=== PATIENT | female | born 1935 | race Caucasian/White ===

== ENCOUNTER 2020-09-23 13:18 | Outpatient (REF) | payer MEDICARE, SELFPAY ==
--- NOTE | 2020-09-23 | US_ITS ---
EXAMINATION: COLOR-FLOW DUPLEX IMAGING OF THE BILATERAL LOWER EXTREMITY ARTERIAL SYSTEM. VELOCITY MEASUREMENTS THROUGHOUT THE FEMORAL ARTERIES WITH ANKLE-BRACHIAL PERIPHERAL ARTERIAL TESTING. Interventional Radiologist: Clement Jimenez M.D., F.S.I.R., F.A.C.R. CLINICAL INFORMATION: This is an 85-year-old female with bilateral peripheral arterial disease. Claudication. RIGHT FEMORAL RUNOFF VELOCITIES: The right common femoral artery measures 211 cm/s and with moderate stenosis and monophasic waveforms.. The right profunda femoral artery is 112 cm/s and is monophasic. Right proximal superficial femoral artery measures 119 cm/s and monophasic. Mid superficial femoral artery is 54 cm/s and monophasic. Distal right superficial femoral artery measures 51 cm/s and is monophasic. Right popliteal velocity measures 14 cm/s and is monophasic. The right posterior tibial artery is not detected. The right ankle-brachial index is 0.48. LEFT FEMORAL RUNOFF VELOCITIES: The left common femoral artery measures 135 cm/s and monophasic. The left profunda femoral artery is 96 cm/s and is biphasic. Left proximal superficial femoral artery measures 130 cm/s and monophasic. Mid superficial femoral artery is 61 cm/s and monophasic. Distal left superficial femoral artery measures 46 cm/s and is monophasic. Left popliteal velocity measures 56 cm/s and is biphasic. The left posterior tibial artery is not detected. The left ankle-brachial index is 0.64. Atherosclerotic plaque is seen throughout the arteries bilaterally. US/US arterial duplex LE BI IMPRESSION: 1. Abnormal bilateral peripheral arterial testing with abnormal ankle-brachial index and velocity measurements with moderate hemodynamically significant stenosis. 2. There is likely a hemodynamically significant stenosis within the left common femoral artery. 3. The posterior tibial arteries are likely occluded bilaterally. 4. The patient likely has both inflow and outflow disease.
== END 2020-09-23 13:19 | disposition home or self-care (01) ==
LOC: HO.US 13:18
PROVIDERS: Visit Provider Surgery Vascular Surgery
DX: I70.203 Unspecified atherosclerosis of native arteries of extremities, bilateral legs (principal)
CPT/HCPCS: 93923; 93925

== ENCOUNTER → 2020-09-30 12:49 | Outpatient (BNVA) | payer MEDICARE, SELFPAY | PROVIDERS: PCP Internal Medicine; Referring Provider Internal Medicine; Visit Provider Surgery Vascular Surgery | DX: I73.9 Peripheral vascular disease, unspecified (principal) | CPT/HCPCS: 99212 ==

== ENCOUNTER → 2020-10-21 13:59 | Outpatient (BNVA) | payer MEDICARE, SELFPAY | PROVIDERS: PCP Internal Medicine; Referring Provider Internal Medicine; Visit Provider Internal Medicine Cardiovascular Disease | DX: Z13.89 Encounter for screening for other disorder (principal) | CPT/HCPCS: Q3014 ==

== ENCOUNTER 2020-11-11 08:00 | Outpatient (REF) | payer MEDICARE, SELFPAY ==
[2020-11-11 08:43] LABS: Hematocrit 33.4 % (37-47); Hemoglobin 10.4 g/dl (12.0-16.0); Mean Corpuscular HGB Conc 31.1 g/dl (31.0-35.0); Mean Corpuscular Hemoglobin 28.5 pg (27.0-33.0); Mean Corpuscular Volume 91.5 fL (80-98); Mean Platelet Volume 10.6 fL (9.4-12.3); Platelet Count 196 X10*3/uL (160-400); Red Blood Count 3.65 X10*6/uL (4.20-5.50); Red Cell Distribution Width 16.7 % (11.0-16.0); White Blood Count 3.9 X10*3/uL (4.8-10.8)
[2020-11-11 09:11] LABS: Anion Gap 13 (12-20); Blood Urea Nitrogen 26 mg/dL (9-16); Calcium 9.4 mg/dL (8.4-10.2); Carbon Dioxide 29 mmol/L (22-29); Chloride 105 mmol/L (96-108); Estimated Glomerular Filt Rate > 60; Glucose Random 98 mg/dL (60-115); Potassium 4.5 mmol/l (3.3-5.1); Sodium 142 mmol/L (135-145)
== END 2020-11-11 08:01 | disposition home or self-care (01) ==
LOC: HO.LAB 08:00
PROVIDERS: PCP Internal Medicine; Visit Provider Internal Medicine Cardiovascular Disease
DX: I25.10 Atherosclerotic heart disease of native coronary artery without angina pectoris (principal); I11.0 Hypertensive heart disease with heart failure; I50.32 Chronic diastolic (congestive) heart failure
CPT/HCPCS: 36415; 80048; 85027

== ENCOUNTER → 2021-01-22 11:10 | Outpatient (REF) | payer MEDICARE, SELFPAY ==
--- NOTE | 2021-01-22 11:13 | CA_ITS ---
Transthoracic Echocardiogram Patient (Last, First, Middle): Lucio Gannon M Gender: Female Date of : 1935 Age: 85 Procedure Date: 01/22/2021 Procedure Type: Transthoracic Echocardiogram Location: OP Height: 160.02 cm Weight: 58.97 kg BSA: 1.61 m2 Heart Rate: bpm BP: 120 / 78 mmHg Netbackup Admin: LEYLA Referring MD: Demetrio Fine MD Steelworker: Demetrio Fine MD Symptoms: I25.10 - Atherosclerotic heart disease of samish coronary artery without angina pectoris Study Quality: Good ECG Rhythm: Sinus Conclusions: - 1. Normal LV systolic function with grade 2 diastolic dysfunction 2. Moderately dilated left atrium 3. Lixt-dg-ftcbbkal mitral regurgitation with severe mitral annular calcification 4. At least moderate aortic stenosis 5. Moderately elevated right ventricular systolic pressure 6. No pericardial effusion Findings Left Ventricle Normal left ventricular size, thickness, and systolic function. The visually estimated ejection fraction is between 65-70%. Spectral Doppler is indicative of a pseudonormal filling pattern. E/E prime ratio is >15, consistent with elevated filling pressures. Evidence suggests grade II (moderate) diastolic dysfunction. Right Ventricle Normal right ventricular cavity size and systolic function. Atria The left atrium is moderately dilated. There is no evidence of interatrial shunt. The right atrium is mildly dilated. Aortic Valve There is moderate calcification of the aortic valve. There is moderate thickening of the aortic valve. There is moderate aortic valve stenosis. The mean gradient is 13 mmHg. The aortic valve area is 1.12 cm2. There is no aortic valve regurgitation. Mitral Valve There is severe anterior and posterior mitral leaflet thickening. There is severe mitral annular calcification. There is mild to moderate mitral valve regurgitation. There is no mitral valve stenosis. Pulmonic Valve The pulmonic valve is likely normal. There is trace to mild pulmonic valve regurgitation. Tricuspid Valve Likely normal tricuspid valve structure and function. There is mild to moderate tricuspid valve regurgitation. Mildly elevated right atrial pressure. Moderate pulmonary hypertension is present. Great Vessels All visible segments of the aorta are normal in size. The pulmonary artery was not well visualized. Venous The inferior vena cava is mildly dilated and collapses less than 50% with inspiration. Pericardium/Pleural There is no evidence of pericardial effusion. Prior Study Comparison No significant change compared to prior study dated: 05/12/2020. Measurements M-Mode Liner Measurements Normals - Women/Men AOV Cusps: 0.80 1.5-2.6 cm/m2 2D Linear Measurements IVSd: 1.09 0.6-0.9/0.6-1.0 cm LVIDd: 4.39 3.9-5.3/4.2-5.9 cm LVIDd Index: 2.73 2.4-3.2/2.2-3.1 cm/m2 LVIDs: 3.09 2.0-3.6 cm LVPWd: 1.00 0.7-1.1 cm Ao Root: 3.30 2.1-3.5 cm LA Diam: 4.50 2.7-3.8/3.0-4.0 cm LAIDs Index: 2.80 1.5-2.3 cm/m2 LV Mass: 194.99 67-162/88-224 g LV Mass Index: 121.11 43-95/49-115 g/m2 LVOT Diam: 1.90 3.0+(-)1.3 cm 2D Systolic Function EF 4C: 70.30 >55% EF 2C: 67.80 >55% EF BiP: 70.60 >55% Mitral Valve MV Pk E: 1.10 MV PK A: 1.06 MV Decel Time: 194.00 E/A: 1.00 E'Lateral: 7.29 E'Medial: 5.44 E/E' Med: 20.20 E/E' Lat: 15.10 PHT: 57.00 MVA PHT: 3.86 Decel Coal: 5.69 Aortic Valve AoV Pk Bentley: 2.51 AoV Mn Bentley: 1.65 AoV VTI: 0.53 AoV Pk Grad: 25.00 Aov Mn Grad: 13.00 HALINA Cont.VTI: 1.12 LVOT LVOT Pk Bentley: 0.89 LVOT Mn Bentley: 0.58 LVOT VTI: 0.21 LVOT Pk Grad: 3.00 LVOT Mn Grad: 2.00 LVOT Diam: 1.90 LVOT Area: 2.84 Diastolic Function MV Pk E: 1.10 MV Pk A: 1.06 E/A: 1.00 E'Medial: 5.44 E/E' Med: 20.20 E' Laterial: 7.29 E/E' Lat: 15.10 Tricuspid Valve TR Pk Bentley: 3.27 TR Pk Grad: 43.00 RA Press: 8.00 RVSP: 51.00 Great Vessels Aorta Ao Root-2D: 3.30 2.0-3.7 cm Pulmonary Valve PV Pk Bentley: 1.02 Peak PV Grad: 4.00 Updated in Other Vendor System with Status of Final Demetrio Fine MD electronically signed on 01/23/2021 3:16:31 PM with status of Final
== END ==
LOC: HO.CARD 11:10
PROVIDERS: Visit Provider Internal Medicine Cardiovascular Disease
DX: I25.10 Atherosclerotic heart disease of native coronary artery without angina pectoris (principal); I11.0 Hypertensive heart disease with heart failure; I50.30 Unspecified diastolic (congestive) heart failure; I35.0 Nonrheumatic aortic (valve) stenosis
CPT/HCPCS: 93306

== ENCOUNTER → 2021-01-26 13:35 | Outpatient (BNVA) | payer MEDICARE, SELFPAY | PROVIDERS: PCP Internal Medicine; Visit Provider Internal Medicine Cardiovascular Disease | DX: R06.02 Shortness of breath (principal); I50.30 Unspecified diastolic (congestive) heart failure; I25.10 Atherosclerotic heart disease of native coronary artery without angina pectoris; I35.0 Nonrheumatic aortic (valve) stenosis; Z79.899 Other long term (current) drug therapy | CPT/HCPCS: 99212 ==

== ENCOUNTER 2021-01-28 10:04 | Outpatient (REF) | payer MEDICARE, SELFPAY ==
[2021-01-28 11:17] LABS: B Type Natriuretic Peptide 328 pg/mL (<100)
[2021-01-28 11:27] LABS: Anion Gap 15 (12-20); Blood Urea Nitrogen 21 mg/dL (9-16); Calcium 9.3 mg/dL (8.4-10.2); Carbon Dioxide 27 mmol/L (22-29); Chloride 104 mmol/L (96-108); Estimated Glomerular Filt Rate > 60; Glucose Random 93 mg/dL (60-115); Potassium 4.3 mmol/L (3.3-5.1); Sodium 142 mmol/L (135-145)
== END 2021-01-28 10:05 | disposition home or self-care (01) ==
LOC: HO.LAB 10:04
PROVIDERS: PCP Internal Medicine; Visit Provider Internal Medicine Cardiovascular Disease
DX: R06.02 Shortness of breath (principal)
CPT/HCPCS: 36415; 80048; 83880

== ENCOUNTER → 2021-04-29 09:35 | Outpatient (BNVA) | payer MEDICARE, SELFPAY | PROVIDERS: PCP Internal Medicine; Referring Provider Internal Medicine; Visit Provider Internal Medicine Cardiovascular Disease | DX: R06.02 Shortness of breath (principal); I50.30 Unspecified diastolic (congestive) heart failure; I25.10 Atherosclerotic heart disease of native coronary artery without angina pectoris; I35.0 Nonrheumatic aortic (valve) stenosis; R42 Dizziness and giddiness | CPT/HCPCS: 99212 ==

== ENCOUNTER → 2021-07-23 09:37 | Outpatient (BNVA) | payer MEDICARE, SELFPAY | PROVIDERS: PCP Internal Medicine; Referring Provider Internal Medicine; Visit Provider Internal Medicine Cardiovascular Disease | DX: I50.30 Unspecified diastolic (congestive) heart failure (principal); I35.0 Nonrheumatic aortic (valve) stenosis; I25.10 Atherosclerotic heart disease of native coronary artery without angina pectoris | CPT/HCPCS: 93005; 99212 ==

== ENCOUNTER 2021-12-18 09:32 | Outpatient (REF) | payer MEDICARE, SELFPAY ==
[2021-12-18 10:00] LABS: MANUAL DIFF FLAG NO
[2021-12-18 10:27] LABS: Basophils Percent Auto 0.9 % (0-2); Eosinophils Absolute Auto 0.1 X10*3/uL (0.0-0.4); Eosinophils Percent Auto 1.7 % (0-4); Hematocrit 34.3 % (37.0-47.0); Hemoglobin 10.7 g/dl (12.0-16.0); Lymphocytes Absolute Auto 0.9 X10*3/uL (1.2-4.9); Lymphocytes Percent Auto 24.4 % (20-40); Mean Corpuscular HGB Conc 31.2 g/dl (31.0-35.0); Mean Corpuscular Hemoglobin 29.2 pg (27.0-33.0); Mean Corpuscular Volume 93.5 fL (80.0-98.0); Mean Platelet Volume 10.5 fL (9.4-12.3); Monocytes Absolute Auto 0.5 X10*3/uL (0.1-1.2); Monocytes Percent Auto 13.4 % (2-11); Neutrophils Absolute Auto 2.1 x10*3/uL (2.0-8.3); Neutrophils Percent Auto 59.6 % (45-73); Platelet Count 200 X10*3/uL (160-400); Red Blood Count 3.67 X10*6/uL (4.20-5.50); Red Cell Distribution Width 13.8 % (11.0-16.0); White Blood Count 3.5 X10*3/uL (4.8-10.8)
[2021-12-18 11:00] LABS: Alanine Aminotransferase 6 U/L (0-31); Albumin Level 3.9 g/dL (3.5-5.0); Alkaline Phosphatase 53 U/L (39-117); Anion Gap 13 (12-20); Aspartate Amino Transferase 16 U/L (5-31); Bilirubin Total 0.8 mg/dL (0.0-1.0); Blood Urea Nitrogen 26 mg/dL (9-16); Calcium 9.9 mg/dL (8.4-10.2); Carbon Dioxide 26 mmol/L (22-29); Chloride 107 mmol/L (96-108); Cholesterol 132 mg/dL; Estimated Glomerular Filt Rate > 60; Glucose Fasting 94 mg/dL (60-99); HDL Cholesterol 32 mg/dL; LDL Cholesterol Calculated 75 mg/dl; Sodium 141 mmol/L (135-145); Total Protein 6.8 g/dL (6.5-8.0); Triglycerides 125 mg/dL
[2021-12-18 11:21] LABS: Thyroid Stimulating Hormone 0.53 uIU/mL (0.32-4.0)
== END 2021-12-18 09:33 | disposition home or self-care (01) ==
LOC: HO.LAB 09:32
PROVIDERS: Absent Provider Internal Medicine; PCP Internal Medicine; Visit Provider Nurse Practitioner Family
DX: Z00.00 Encounter for general adult medical examination without abnormal findings (principal); E78.5 Hyperlipidemia, unspecified; E11.9 Type 2 diabetes mellitus without complications; Z13.0 Encounter for screening for diseases of the blood and blood-forming organs and certain disorders involving the immune mechanism
CPT/HCPCS: 36415; 80053; 80061; 84443; 85025

== ENCOUNTER 2022-09-15 09:04 | Outpatient (REF) | payer MEDICARE, SELFPAY ==
[2022-09-15 11:28] LABS: B Type Natriuretic Peptide 549 pg/mL (<100)
[2022-09-15 11:32] LABS: Anion Gap 17 (12-20); Blood Urea Nitrogen 37 mg/dL (9-16); Calcium 9.4 mg/dL (8.4-10.2); Carbon Dioxide 25 mmol/L (22-29); Chloride 103 mmol/L (96-108); Cholesterol 133 mg/dL; Estimated Glomerular Filt Rate 52; Glucose Random 95 mg/dL (60-115); HDL Cholesterol 40 mg/dL; LDL Cholesterol Calculated 73 mg/dl; Potassium 4.2 mmol/L (3.3-5.1); Sodium 141 mmol/L (135-145); Triglycerides 101 mg/dL
[2022-09-15 11:43] LABS: Thyroid Stimulating Hormone 1.11 uIU/mL (0.32-4.0)
== END 2022-09-15 09:05 | disposition home or self-care (01) ==
LOC: HO.LAB 09:04
PROVIDERS: PCP Internal Medicine; Referring Provider Internal Medicine; Visit Provider Internal Medicine Cardiovascular Disease
DX: E03.9 Hypothyroidism, unspecified (principal); E78.5 Hyperlipidemia, unspecified; I35.0 Nonrheumatic aortic (valve) stenosis; R06.02 Shortness of breath
CPT/HCPCS: 36415; 80048; 80061; 83880; 84443; 93005; 99212

== ENCOUNTER → 2022-09-17 10:13 | Outpatient (REF) | payer MEDICARE, SELFPAY ==
--- NOTE | 2022-09-17 10:16 | CA_ITS ---
Transthoracic Echocardiogram Patient (Last, First, Middle): Lucio Gannon M Gender: Female Date of : 1935 Age: 86 Procedure Date: 09/17/2022 Procedure Type: Transthoracic Echocardiogram Location: OP Height: 160.02 cm Weight: 60.33 kg BSA: 1.63 m2 Heart Rate: 72 bpm BP: 118 / [address] Sql Developer: SB Referring MD: Demetrio Fine MD Symptoms: I35.0 - Nonrheumatic aortic (valve) stenosis Study Quality: Fair ECG Rhythm: Sinus Conclusions: - Normal left ventricular cavity size. There is mildly increased left ventricular wall thickness. The left ventricular systolic function is hyperdynamic. The visually estimated ejection fraction is >70%. - Normal right ventricular cavity size. There is mild to moderately decreased right ventricular systolic function. - The left atrium is severely dilated. The right atrium is mildly dilated. - There is moderate aortic valve stenosis. The peak aortic velocity is 3.16 m/s. The mean gradient is 21 mmHg. The aortic valve area is 0.92 cm2. There is no aortic valve regurgitation. SVI 40. - There is severe mitral annular calcification. There is trace mitral valve regurgitation. There is no mitral valve stenosis. Findings Left Ventricle Normal left ventricular cavity size. There is mildly increased left ventricular wall thickness. The left ventricular systolic function is hyperdynamic. The visually estimated ejection fraction is >70%. There is no evidence of regional wall motion abnormalities. Diastolic function is indeterminate on the basis of available data. Right Ventricle Normal right ventricular cavity size. There is mild to moderately decreased right ventricular systolic function. Atria The left atrium is severely dilated. The right atrium is mildly dilated. Aortic Valve There is a normal trileaflet aortic valve. There is moderate calcification of the aortic valve. There is moderate thickening of the aortic valve. There is moderate aortic valve stenosis. The peak aortic velocity is 3.16 m/s. The mean gradient is 21 mmHg. The aortic valve area is 0.92 cm2. There is no aortic valve regurgitation. SVI 40. Mitral Valve There is severe mitral annular calcification. There is trace mitral valve regurgitation. There is no mitral valve stenosis. Pulmonic Valve Normal pulmonic valve structure and function. There is trace pulmonic valve regurgitation. Tricuspid Valve Normal tricuspid valve structure and function. There is mild tricuspid valve regurgitation. Normal right atrial pressure. There is no evidence of pulmonary hypertension. Great Vessels The visualized portions of the pulmonary artery and branches are normal. Venous The inferior vena cava is normal in size and collapses greater than 50% with inspiration. Pericardium/Pleural There is no evidence of pericardial effusion. Prior Study Comparison Changes noted compared to prior study dated: 01/22/2021. RV function mild to moderately reduced. Severe LA dilation. Measurements 2D Linear Measurements IVSd: 0.90 0.6-0.9/0.6-1.0 cm LVIDd: 4.72 3.9-5.3/4.2-5.9 cm LVIDd Index: 2.90 2.4-3.2/2.2-3.1 cm/m2 LVIDs: 2.87 2.0-3.6 cm LVPWd: 0.98 0.7-1.1 cm LA Diam: 4.80 2.7-3.8/3.0-4.0 cm LAIDs Index: 2.94 1.5-2.3 cm/m2 LV Mass: 189.77 67-162/88-224 g LV Mass Index: 116.42 43-95/49-115 g/m2 LVOT Diam: 2.00 3.0+(-)1.3 cm 2D Systolic Function EF Teich: 69.00 >55% Mitral Valve MV VTI: 0.39 MV Pk Bentley: 1.12 MV Mn Bentley: 0.67 MV Pk Grad: 5.00 MV Mn Grad: 2.00 MV Pk E: 0.92 MV PK A: 1.19 MV Decel Time: 217.00 E/A: 0.80 E'Lateral: 4.90 E'Medial: 4.68 E/E' Med: 19.70 E/E' Lat: 18.80 PHT: 64.00 MVA PHT: 3.44 MVA Continuity: 1.86 Decel [place]: 4.25 MR VTI: 1.85 Aortic Valve AoV Pk Bentley: 3.16 AoV Mn Bentley: 2.15 AoV VTI: 0.70 AoV Pk Grad: 40.00 Aov Mn Grad: 21.00 HALINA Cont.VTI: 0.92 LVOT LVOT Pk Bentley: 0.94 LVOT Mn Bentley: 0.63 LVOT VTI: 0.23 LVOT Pk Grad: 4.00 LVOT Mn Grad: 2.00 LVOT Diam: 2.00 LVOT Area: 3.14 Diastolic Function MV Pk E: 0.92 MV Pk A: 1.19 E/A: 0.80 E'Medial: 4.68 E/E' Med: 19.70 E' Laterial: 4.90 E/E' Lat: 18.80 Right Ventricle TAPSE (mm): 17.40 TVS' Bentley: 6.74 Tricuspid Valve TR Pk Bentley: 2.79 TR Pk Grad: 31.00 RA Press: 3.00 RVSP: 34.00 Great Vessels Aorta Sinus of Valsalva: 3.40 2.0-3.5 cm Ao Asc: 3.30 2.1-3.4 cm Pulmonary Valve PV Pk Bentley: 1.00 Peak PV Grad: 4.00 Updated in Other Vendor System with Status of Final Paul Sharif MD electronically signed on 09/19/2022 7:27:32 PM with status of Final
== END ==
LOC: HO.CARD 10:13
PROVIDERS: PCP Internal Medicine; Visit Provider Internal Medicine Cardiovascular Disease
DX: I35.0 Nonrheumatic aortic (valve) stenosis (principal)
CPT/HCPCS: 93306

== ENCOUNTER 2023-04-29 09:15 | Outpatient (REF) | payer MEDICARE, SELFPAY ==
[2023-04-29 11:09] LABS: Cholesterol 125 mg/dL; HDL Cholesterol 36 mg/dL; LDL Cholesterol Calculated 64 mg/dl; Triglycerides 128 mg/dL
[2023-04-29 11:26] LABS: Thyroid Stimulating Hormone 0.43 uIU/mL (0.32-4.0)
== END 2023-04-29 09:16 | disposition home or self-care (01) ==
LOC: HO.LAB 09:15
PROVIDERS: PCP Internal Medicine; Visit Provider Internal Medicine
DX: E03.9 Hypothyroidism, unspecified (principal); E78.5 Hyperlipidemia, unspecified
CPT/HCPCS: 36415; 80061; 84443

== ENCOUNTER 2023-05-27 08:16 | Outpatient (AMB) | payer MEDICARE, SELFPAY ==
--- NOTE | 2023-05-27 08:20 | A.OFFPC_ITS ---
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 Accompanied by: Self / Same As Patient Allergies aspirin [Aspirin] Allergy (Mild, Verified 05/27/23 08:21) ACID REFLUX, gi upset ciprofloxacin [From CIPRO] Allergy (Unknown, Verified 05/27/23 08:21) RASH Sulfa (Sulfonamide Antibiotics) [SULFA (SULFONAMIDE ANTIBIOTICS)] Allergy (Unknown, Verified 05/27/23 08:21) DIZZINESS Medication List - Last Reconciled 05/27/23 by Owen Harris MD albuterol sulfate 90 mcg/actuation 2 puffs PO Q4H PRN aspirin (Ecotrin Low Strength) 81 mg PO DAILY atorvastatin 20 mg PO DAILY calcium carbonate-vitamin D3 600 mg-5 mcg (200 unit) (Calcium 600 + D(3)) caps PO DAILY docusate sodium 50 mg PO DAILY furosemide 40 mg PO DAILY levothyroxine 88 mcg PO DAILY losartan 50 mg PO DAILY metoprolol succinate ER 50 mg PO DAILY pantoprazole 40 mg PO DAILY vitamin E (dl, acetate) 400 units PO DAILY Tobacco use date assessed: 05/27/23 Fall risk assessment: No Falls in past year Last assessed Fall Risk: 05/27/23 Dental Screening Dental Screen Date: 05/27/23 Did you have a dental visit in the last 12 months?: No Did you have a dental problem in the last 6 months where you did not have access to dental care?: No Was dental information given to patient?: Patient has dentist HPI 3mth f/u HPI Details HTN hyperlip and hypothyroidism; doing well on rx PFSH Medical History (HFpEF) heart failure with preserved ejection fraction Aortic stenosis CAD (coronary artery disease) HTN (hypertension) Hyperlipidemia PAD (peripheral artery disease) Wound infection Surgical History H/O arthroscopy of right knee H/O partial resection of colon H/O rectocele repair History of bladder suspension procedure History of cataract surgery History of colonoscopy History of cystocele History of hysterectomy History of total right knee replacement Hx of salpingo-oophorectomy, bilateral S/P CABG x 2 Family History Father CAD (coronary artery disease) Throat cancer Stroke Mother No problems noted. Son No problems noted. Social History Housing: Apartment Alcohol intake: never Patient Tobacco Use Status: Former Tobacco user e-Cigarette/Vaping Use: Never Used Second Hand Smoke Exposure: Yes service: No Current occupational status: retired Cognitive needs: Yes (walker) Hearing needs: No Vision needs: Yes (glasses) Questionnaire PHQ-9 Over the last 2 weeks, how often have you been bothered by any of the following problems? 1. Little interest or pleasure in doing things: not at all 2. Feeling down, depressed, or hopeless: not at all 3. Trouble falling or staying asleep, or sleeping too much: not at all 4. Feeling tired or having little energy: not at all 5. Poor appetite or overeating: not at all 6. Feeling bad about yourself - or that you are a failure or have let yourself or your family down: not at all 7. Trouble concentrating on things, such as reading the newspaper or watching television: not at all 8. Moving or speaking so slowly that other people could have noticed. Or the opposite - being so fidgety or restless that you have been moving around a lot more than usual: not at all 9. Thoughts that you would be better off or of hurting yourself in some way: not at all Total score: 0 Depression Screening Interpretation: Negative 11955 - PHQ-9 Billing: Yes Source: Developed by Drs. Abdulaziz Maldonado, Jacqui Jimenez, Juvenal Bustos and colleagues, with an educational josiane from [employer]. Thrive Questionnaire Date Thrive assessed: 05/27/23 I am a: Patient What is your living situation today?: I have a steady place to live Within the past 12 months, did the food you bought not last and you didn't have the money to get more?: Never true Within the past 12 months, did you worry whether your food would run out before you got money to buy more?: Never true Do you have trouble paying for medicines?: No Do you have trouble getting transportation to medical appointments?: No Do you have trouble paying your heating and electricity bill?: No Do you have trouble taking care of your child, family member or friend?: No Do you have trouble with day-to-day activities such as bathing, preparing meals, shopping, managing finances, etc.?: No Are you currently unemployed and looking for a job?: No Are you interested in more education?: No Please select the resources that you would like help with: None Currently or been in a relationship where the following occur: no concerns reported AUDIT C Alcohol Use Questionnaire (AUDIT-C) 1. How often do you have a drink containing alcohol?: Never Total Score: 0 LORENZO-7 AMB Questionnaire LORENZO-7 Date LORENZO - 7 assessed: 05/27/23 Feeling nervous, anxious, or on edge: 0 = Not at all Not being able to stop or control worryin = Not at all Worrying too much about different things: 0 = Not at all Trouble relaxin = Not at all Being so restless that it is hard to sit still: 0 = Not at all Becoming easily annoyed or irritable: 0 = Not at all Feeling afraid as if something awful might happen: 0 = Not at all Total LORENZO-7 score (0-4 normal; 5-9 mild; 10-14 moderate; 15-21 severe): 0 Source: Developed by Drs. Abdulaziz Maldonado, Jacqui Jimenez, Juvenal Bustos and colleagues, with an educational josiane from [employer]. LORENZO-7 Assessment Billing LORENZO-7 Assessment Tool: LORENZO-7 Assessment 45391 Review of Systems Const Denies chills, Denies headache(s) and Denies weight loss ENT Denies headache(s) Card Denies chest pain, Denies syncope, Denies irregular heart rhythm and Denies dyspnea Resp Denies chest congestion, Denies cough and Denies dyspnea GI Denies abdominal pain, Denies change in stool character, Denies nausea and Denies vomiting Musc Denies deformity and Denies joint swelling Neuro Denies syncope and Denies headache(s) Physical exam (Primary Care) Vital Signs: Last Vital Signs BP 124/80 05/27/23 08:22 BMI result Body Mass Index 22.0 Tobacco/Smoking Status: Tobacco use Status Tobacco use date assessed 05/27/23 05/27/23 08:28 Patient Tobacco Use Status Former Tobacco user 05/27/23 08:28 e-Cigarette/Vaping Use Never Used 05/27/23 08:28 PHQ-9: PHQ-9 Score PHQ-9: Total score 0 05/27/23 08:28 Depression Screening Interpretation: Negative Thrive Assessment: Date of Thrive Assessment Date Thrive assessed 05/27/23 05/27/23 08:28 Currently or been in a relationship where the following occur: no concerns reported Const General: cooperative, comfortable and no acute distress Resp Effort & Inspection: normal respiratory effort Auscultation: clear to auscultation bilaterally Percussion: percussion normal Cardio Other: murmor GI Inspection: Yes normal to inspection Assessment and Plan Assessment & Plan (1) Hypothyroidism: Code(s): E03.9 - Hypothyroidism, unspecified Plan: stable; same rx (2) HTN (hypertension): Code(s): I10 - Essential (primary) hypertension Plan: stable; same rx (3) Hyperlipidemia: Code(s): E78.5 - Hyperlipidemia, unspecified Plan: stable; same rx Orders: Orders Lipid Panel Today E78.5 - Hyperlipidemia, unspecified Thyroid Stimulating Hormone Today E03.9 - Hypothyroidism, unspecified Coding Level of Care Code Est Pt Level 4 (00700) Diagnoses Hypothyroidism E03.9 HTN (hypertension) I10 Hyperlipidemia E78.5 Additional Codes LORENZO-7 Assessment Billing - LORENZO-7 Assessment Tool: LORENZO-7 Assessment [id number] ([id number])
[2023-05-27 08:22] VITALS: BP 124/80; BMI 22.0
== END 2023-05-27 08:53 | disposition home or self-care (01) ==
PROVIDERS: Visit Provider Internal Medicine
DX: E03.9 Hypothyroidism, unspecified (principal); I10 Essential (primary) hypertension; E78.5 Hyperlipidemia, unspecified
CPT/HCPCS: 99214

== ENCOUNTER 2023-06-14 09:42 | Outpatient (AMB) | payer MEDICARE, SELFPAY ==
--- NOTE | 2023-06-14 09:45 | MHC.OFFVIS ---
Intake Vital Signs 06/14/23 09:46 Height 5 ft 3 in Weight 125 lb 10.616 oz BMI 22.3 BP 140/80 H Blood Pressure Location Lt brachial Position Sitting Pulse 93 Intake Visit Reasons: 6 month follow up Intake Note: 6 month follow-up feeling good Public Health Informatician Required: No Allergies aspirin [Aspirin] Allergy (Mild, Verified 05/27/23 08:21) ACID REFLUX, gi upset ciprofloxacin [From CIPRO] Allergy (Unknown, Verified 05/27/23 08:21) RASH Sulfa (Sulfonamide Antibiotics) [SULFA (SULFONAMIDE ANTIBIOTICS)] Allergy (Unknown, Verified 05/27/23 08:21) DIZZINESS Medication List - Last Reconciled 06/14/23 by Demetrio Fine MD albuterol sulfate 90 mcg/actuation 2 puffs PO Q4H PRN aspirin (Ecotrin Low Strength) 81 mg PO DAILY atorvastatin 20 mg PO DAILY calcium carbonate-vitamin D3 600 mg-5 mcg (200 unit) (Calcium 600 + D(3)) caps PO DAILY docusate sodium 50 mg PO DAILY furosemide 40 mg PO DAILY levothyroxine 88 mcg PO DAILY losartan 50 mg PO DAILY metoprolol succinate ER 50 mg PO DAILY pantoprazole 40 mg PO DAILY vitamin E (dl, acetate) 400 units PO DAILY HPI HPI Comments History of Present Illness Details Lucio comes for follow-up. She continues to exertional shortness of breath. Denies any orthopnea, PND. No exertional chest tightness. No lightheadedness, syncope. Takes all her medications. Denies any prolonged palpitations irregular heartbeat. No bleeding issues or neurologic events. [facility] Medical History (HFpEF) heart failure with preserved ejection fraction Aortic stenosis CAD (coronary artery disease) HTN (hypertension) Hyperlipidemia PAD (peripheral artery disease) Wound infection Surgical History H/O arthroscopy of right knee H/O partial resection of colon H/O rectocele repair History of bladder suspension procedure History of cataract surgery History of colonoscopy History of cystocele History of hysterectomy History of total right knee replacement Hx of salpingo-oophorectomy, bilateral S/P CABG x 2 Family History Father CAD (coronary artery disease) Throat cancer Stroke Mother No problems noted. Son No problems noted. Social History Housing: Apartment Alcohol intake: never Patient Tobacco Use Status: Former Tobacco user e-Cigarette/Vaping Use: Never Used Second Hand Smoke Exposure: Yes service: No Current occupational status: retired Cognitive needs: Yes (walker) Hearing needs: No Vision needs: Yes (glasses) Review of Systems Const Denies chills, Denies fatigue, Denies fever(s), Denies frequent falls, Denies weakness, Denies weight gain and Denies weight loss ENT Denies dizziness Card Denies chest pain, Denies leg edema, Denies lightheadedness, Denies palpitations, Denies dyspnea, Denies dyspnea on exertion, Denies orthopnea and Denies other (loss of consciousness) Resp Denies cough, Denies dyspnea and Denies dyspnea on exertion GI Denies hematochezia and Denies change in stool character Musc Denies abnormal gait, Denies muscle weakness, Denies numbness, Denies radiating pain into limb and Denies tingling Neuro Denies abnormal gait, Denies dizziness, Denies frequent falls, Denies numbness, Denies tingling and Denies weakness Endo Denies fatigue and Denies palpitations Physical Exam Vital Signs: Last Vital Signs Pulse 93 06/14/23 09:46 BP 140/80 H 06/14/23 09:46 BMI result Body Mass Index 22.3 Const General: cooperative, comfortable, no acute distress, alert and awake Nutritional Appearance: underweight and other (Frail elderly woman) Orientation/consciousness: patient oriented x3 Limitations: ambulation with walker Neck Neck: Yes trachea midline, Yes supple and Yes no JVD Resp Effort & Inspection: normal respiratory effort Auscultation: clear to auscultation bilaterally Cardio Jugular venous distension: no JVD Rate: regular rate Rhythm: regular rhythm Heart sounds: S1 normal heart sound present, S2 normal heart sound present (Preserved) and Murmur heart sound present systolic late, decrescendo, crescendo, harsh and at the right sternal border GI Auscultation: normal bowel sounds Skin General skin exam: no rashes or lesions noted and ecchymosis Neuro General: patient oriented x3 and no focal motor deficits Extrem General: No clubbing, No cyanosis and Yes edema (Minimal lower extremity) Psych Appearance: grossly normal Assessment & Plan Assessment & Plan (1) (HFpEF) heart failure with preserved ejection fraction: Code(s): I50.30 - Unspecified diastolic (congestive) heart failure Plan: Heart failure preserved ejection fraction, clinically euvolemic and well compensated. Continue current diuretic dose. Patient's shortness of breath appears to our proportion to heart failure syndrome but could be related to aortic stenosis and/or diastolic dysfunction. She has no symptoms angina. Also could be related reduced pulmonary capacity advancing age with deconditioning. Encouraged to participate in physical activity as tolerated. Heart failure management was discussed in details. Daily weight monitoring avoidance of salt loading was discussed additional diuretics as need be. (2) Aortic stenosis: Code(s): I35.0 - Nonrheumatic aortic (valve) stenosis Plan: Aortic stenosis, clinically appears to be progressing. Follow-up echocardiogram 4 months time. We discussed about need for possible aortic valve replacement. She initially declined, however after discussing the process of transcatheter aortic valve replacement she says she will think about it. She will discuss with her son. Continue aggressive vascular risk factor modification. (3) CAD (coronary artery disease): Code(s): I25.10 - Atherosclerotic heart disease of [place] coronary artery without angina pectoris Plan: CAD status post 2 vessel coronary artery bypass grafting. Continue aggressive medical therapy. Blood pressure is currently well optimized continue low-dose aspirin therapy. Continue statin therapy with target goal LDL less than 70 mg/dL. Blood pressure is currently well optimized. Follow up in the clinic in 5 months time, sooner p.r.n.. Thank you for allowing me to partake in her care Coding Level of Care Code Est Pt Level 4 (13027) Diagnoses (HFpEF) heart failure with preserved ejection fraction I50.30 Aortic stenosis I35.0 CAD (coronary artery disease) I25.10
[2023-06-14 09:46] VITALS: BP 140/80; PULSE 93; BMI 22.3
== END 2023-06-14 11:02 | disposition home or self-care (01) ==
PROVIDERS: PCP Internal Medicine; Referring Provider Internal Medicine; Visit Provider Internal Medicine Cardiovascular Disease
DX: I50.30 Unspecified diastolic (congestive) heart failure (principal); I35.0 Nonrheumatic aortic (valve) stenosis; I25.10 Atherosclerotic heart disease of native coronary artery without angina pectoris
CPT/HCPCS: 99214

== ENCOUNTER → 2023-06-14 09:42 | Outpatient (BNVA) | payer MEDICARE, SELFPAY | PROVIDERS: PCP Internal Medicine; Referring Provider Internal Medicine; Visit Provider Internal Medicine Cardiovascular Disease | DX: I50.30 Unspecified diastolic (congestive) heart failure (principal); I25.10 Atherosclerotic heart disease of native coronary artery without angina pectoris; I35.0 Nonrheumatic aortic (valve) stenosis | CPT/HCPCS: 99212 ==

== ENCOUNTER → 2023-07-15 09:57 | Outpatient (REF) | payer MEDICARE, SELFPAY ==
--- NOTE | 2023-07-15 09:59 | CA_ITS ---
Transthoracic Echocardiogram Patient (Last, First, Middle): Lucio Gannon M Gender: Female Date of : 1935 Age: 87 Procedure Date: 07/15/2023 Procedure Type: Transthoracic Echocardiogram Location: OP Height: 160.02 cm Weight: 56.7 kg BSA: 1.58 m2 Heart Rate: bpm BP: 126 / 80 mmHg Administrative Services Assistant: Referring MD: Demetrio Fine MD Commercial Reporter: Demetrio Fine MD Symptoms: I35.0 - Nonrheumatic aortic (valve) stenosis Study Quality: Good ECG Rhythm: Sinus Conclusions: - 1. Normal LV ejection fraction with moderate LVH with LVEF of 60 65% with at least grade 2 diastolic dysfunction 2. Severely dilated left atrium 3. Paradoxical low-flow severe aortic stenosis with mean gradient of 28 mmHg with dimensionless index of 0.25 4. Normal RV systolic pressure 5. No gross pericardial effusion Findings Left Ventricle Normal left ventricular size and systolic function. There is moderately increased left ventricular wall thickness. The visually estimated ejection fraction is between 60-65%. Spectral Doppler is indicative of a pseudonormal filling pattern. Elevated filling pressures. E/E prime ratio is >15, consistent with elevated filling pressures. Evidence suggests grade II (moderate) diastolic dysfunction. Right Ventricle Normal right ventricular cavity size and systolic function. Atria The left atrium is severely dilated. There is no evidence of interatrial shunt. The right atrium is mildly dilated. Aortic Valve There is moderate calcification of the aortic valve. There is moderate thickening of the aortic valve. There is severe aortic valve stenosis. The mean gradient is 28 mmHg. The aortic valve area is 0.71 cm2. There is trace (trivial) aortic valve regurgitation. dimensionless index is 0.25 Mitral Valve There is moderate anterior and severe posterior mitral leaflet thickening. There is severe mitral annular calcification. There is mild mitral valve regurgitation. There is no mitral valve stenosis. Pulmonic Valve The pulmonic valve is likely normal. There is trace to mild pulmonic valve regurgitation. Tricuspid Valve Normal tricuspid valve structure. There is mild tricuspid valve regurgitation. The right ventricular systolic pressure is normal. Normal right atrial pressure. There is no evidence of pulmonary hypertension. Great Vessels All visible segments of the aorta are normal in size. The pulmonary artery was not well visualized. There is no dilatation of the ascending aorta measuring 3.10 cm. Venous The inferior vena cava is normal in size and collapses greater than 50% with inspiration. Pericardium/Pleural There is no evidence of pericardial effusion. Measurements 2D Linear Measurements IVSd: 1.41 0.6-0.9/0.6-1.0 cm LVIDd: 4.14 3.9-5.3/4.2-5.9 cm LVIDd Index: 2.62 2.4-3.2/2.2-3.1 cm/m2 LVIDs: 2.34 2.0-3.6 cm LVPWd: 1.35 0.7-1.1 cm Ao Root: 3.20 2.1-3.5 cm LA Diam: 4.50 2.7-3.8/3.0-4.0 cm LAIDs Index: 2.85 1.5-2.3 cm/m2 LV Mass: 267.85 67-162/88-224 g LV Mass Index: 169.53 43-95/49-115 g/m2 LVOT Diam: 2.00 3.0+(-)1.3 cm Mitral Valve MV VTI: 0.41 MV Pk Bentley: 1.21 MV Mn Bentley: 0.78 MV Pk Grad: 6.00 MV Mn Grad: 3.00 MV Pk E: 1.16 MV PK A: 1.02 MV Decel Time: 148.00 E/A: 1.10 E'Lateral: 5.66 E'Medial: 4.46 E/E' Med: 26.00 E/E' Lat: 20.50 PHT: 43.00 MVA PHT: 5.12 MVA Continuity: 1.52 Decel [place]: 7.82 Aortic Valve AoV Pk Bentley: 3.62 AoV Mn Bentley: 2.43 AoV VTI: 0.88 AoV Pk Grad: 52.00 Aov Mn Grad: 28.00 HALINA Cont.VTI: 0.71 LVOT LVOT Pk [place]ley: 0.84 LVOT Mn Bentley: 0.53 LVOT VTI: 0.20 LVOT Pk Grad: 3.00 LVOT Mn Grad: 1.00 LVOT Diam: 2.00 LVOT Area: 3.14 Diastolic Function MV Pk E: 1.16 MV Pk A: 1.02 E/A: 1.10 E'Medial: 4.46 E/E' Med: 26.00 E' Laterial: 5.66 E/E' Lat: 20.50 Right Ventricle TAPSE (mm): 19.00 TVS' Bentley: 8.00 Tricuspid Valve TR Pk Bentley: 2.79 TR Pk Grad: 31.00 RA Press: 3.00 RVSP: 34.00 Great Vessels Aorta Ao Root-2D: 3.20 2.0-3.7 cm Ao Asc: 3.10 2.1-3.4 cm Pulmonary Valve PV Pk Bentley: 1.02 Peak PV Grad: 4.00 Updated in Other Vendor System with Status of Final Demetrio Fine MD electronically signed on 07/16/2023 1:32:34 PM with status of Final
== END ==
LOC: HO.CARD 09:57
PROVIDERS: Visit Provider Internal Medicine Cardiovascular Disease
DX: I35.0 Nonrheumatic aortic (valve) stenosis (principal)
CPT/HCPCS: 93306

== ENCOUNTER → 2023-07-15 09:59 | Outpatient (BNV) | payer MEDICARE, SELFPAY | PROVIDERS: Visit Provider Internal Medicine Cardiovascular Disease | DX: I35.0 Nonrheumatic aortic (valve) stenosis (principal) | CPT/HCPCS: 93306 ==

== ENCOUNTER 2023-10-18 13:20 | Outpatient (AMB) | payer MEDICARE, SELFPAY ==
[2023-10-18 13:23] VITALS: BP 120/60; PULSE 77; BMI 21.1
--- NOTE | 2023-10-18 13:23 | MHC.OFFVIS ---
Intake Vital Signs 10/18/23 13:23 Height 5 ft 3 in Weight 119 lb 0.794 oz BMI 21.1 BP 120/60 Pulse 77 Intake Visit Reasons: follow-up post echo Intake Note: f/up post echo pt haves shortness of breath and tired Entertainment Director Required: No Accompanied by: Self / Same As Patient Allergies aspirin [Aspirin] Allergy (Mild, Verified 10/18/23 13:27) ACID REFLUX, gi upset ciprofloxacin [From CIPRO] Allergy (Unknown, Verified 10/18/23 13:27) RASH Sulfa (Sulfonamide Antibiotics) [SULFA (SULFONAMIDE ANTIBIOTICS)] Allergy (Unknown, Verified 10/18/23 13:27) DIZZINESS Medication List - Last Reconciled 10/18/23 by Barbara Loomis NP albuterol sulfate 90 mcg/actuation 2 puffs PO Q4H PRN aspirin (Ecotrin Low Strength) 81 mg PO DAILY atorvastatin 20 mg PO DAILY azithromycin take 500 mg today (day 1), then 250 mg for 4 days (days 2-5) PO calcium carbonate-vitamin D3 600 mg-5 mcg (200 unit) (Calcium 600 + D(3)) caps PO DAILY docusate sodium 50 mg PO DAILY furosemide 40 mg PO DAILY levothyroxine 88 mcg PO DAILY losartan 50 mg PO DAILY metoprolol succinate ER 50 mg PO DAILY pantoprazole 40 mg PO DAILY vitamin E (dl, acetate) 400 units PO DAILY HPI HPI Comments History of Present Illness Details 88-year-old female presents today for a follow-up after echo. Echocardiogram showed a progression in her aortic stenosis which is now severe. Patient reports she is short of breath and feeling fatigued. Overall feeling well otherwise. Last time she was here her and Dr. Fine discussed the possibility of a TAVR. She was declining at that time and wanted to speak to her son. She has not spoken to her son yet but is now going to. She denies any fainting. 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 Son No problems noted. Social History Housing: Apartment Alcohol intake: never Patient Tobacco Use Status: Former Tobacco user e-Cigarette/Vaping Use: Never Used Second Hand Smoke Exposure: Yes service: No Current occupational status: retired Cognitive needs: Yes (walker) Hearing needs: No Vision needs: Yes (glasses) Review of Systems Const Denies chills, Reports fatigue, Denies fever(s), Denies frequent falls, Denies weakness, Denies weight gain and Denies weight loss ENT Reports dizziness Card Denies chest pain, Denies leg edema, Denies lightheadedness, Denies palpitations, Reports dyspnea and Reports dyspnea on exertion Resp Denies cough, Reports dyspnea and Reports dyspnea on exertion GI Denies hematochezia Musc Denies abnormal gait, Denies muscle weakness, Denies numbness, Denies radiating pain into limb and Denies tingling Neuro Denies abnormal gait, Reports dizziness, Denies frequent falls, Denies numbness, Denies tingling and Denies weakness Endo Reports fatigue and Denies palpitations Physical Exam Vital Signs: BMI result Body Mass Index 21.1 Const General: healthy appearing and no acute distress Orientation/consciousness: patient oriented x3 HEENT Head: Yes normal to inspection Eyes General: appearance normal, both eyes and all related structures Neck Neck: Yes normal visual inspection Chest Chest palpation & inspection: normal inspection of the chest Resp Effort & Inspection: normal respiratory effort Auscultation: clear to auscultation bilaterally Cardio Jugular venous distension: no JVD Palpation: normal PMI Rate: regular rate Rhythm: regular rhythm Heart sounds: S1 normal heart sound present, S2 normal heart sound present, no click, no gallops, Murmur heart sound present systolic harsh and no rubs GI Inspection: Yes normal to inspection Palpation (GI): Soft to palpation Skin General skin exam: no rashes or lesions noted Neuro General: patient oriented x3 Extrem General: Yes normal to inspection Psych Appearance: grossly normal Office Procedures EKG Details: EKG today. Normal sinus rhythm. LVH. Rate 77 bpm. QTc 463ms. [id number], Complete Assessment & Plan Assessment & Plan (1) Aortic stenosis: Comment: Severe aortic stenosis Code(s): I35.0 - Nonrheumatic aortic (valve) stenosis (2) Left ventricular hypertrophy: Code(s): I51.7 - Cardiomegaly Plan Severe aortic stenosis on echocardiogram. Discussed risks and benefits of surgical intervention and the risks without surgical intervention. Risks including of infection, surrounding tissue damage, bleeding, and . Risks without the TAVR including worsening of symptoms. not a candidate for surgery, and . She understands with the valve replacement her symptoms would improve and without it she will continue to progressively get worse untimely leadings to a valve too stiff and resulting in . She would like to discuss this with her son further and will call us. Pamphlet on TAVR given. Will call her in a few weeks to see if she made a discussion. Care discussed with Dr. Fine. Coding Level of Care Code Est Pt Level 3 (87625) Diagnoses Aortic stenosis I35.0 Left ventricular hypertrophy I51.7 CPT Codes EKG - CPT: 24871-[id number], Complete ([id number])
== END 2023-10-18 14:02 | disposition home or self-care (01) ==
PROVIDERS: Visit Provider Nurse Practitioner
DX: I35.0 Nonrheumatic aortic (valve) stenosis (principal); I51.7 Cardiomegaly
CPT/HCPCS: 93010; 99213

== ENCOUNTER → 2023-10-18 13:20 | Outpatient (BNVA) | payer MEDICARE, SELFPAY | PROVIDERS: Visit Provider Nurse Practitioner | DX: I35.0 Nonrheumatic aortic (valve) stenosis (principal); I51.7 Cardiomegaly | CPT/HCPCS: 93005; 99212 ==

== ENCOUNTER 2024-01-11 10:18 | Outpatient (AMB) | payer MEDICARE, SELFPAY ==
[2024-01-11 10:23] VITALS: BP 144/72; PULSE 82; O2SAT 95; BMI 20.2
--- NOTE | 2024-01-11 10:23 | A.OFFPC_ITS ---
Vital Signs 01/11/24 10:23 Height 5 ft 3 in Weight 114 lb BMI 20.2 BP 144/72 H Blood Pressure Location Lt brachial Position Sitting Pulse 82 Pulse Source Pulse Oximeter Pulse Oximetry (%) 95 Oxygen Delivery Method Room Air Intake Visit Reasons: 6 mth f/u Health Social Work Professor Required: No Project Management Specialist: Not Required per policy Accompanied by: Self / Same As Patient Allergies aspirin [Aspirin] Allergy (Mild, Verified 01/11/24 10:24) ACID REFLUX, gi upset ciprofloxacin [From CIPRO] Allergy (Unknown, Verified 01/11/24 10:24) RASH Sulfa (Sulfonamide Antibiotics) [SULFA (SULFONAMIDE ANTIBIOTICS)] Allergy (Unknown, Verified 01/11/24 10:24) DIZZINESS Tobacco use date assessed: 01/11/24 Fall risk assessment: No Falls in past year Last assessed Fall Risk: 01/11/24 Dental Screening Dental Screen Date: 01/11/24 Did you have a dental visit in the last 12 months?: No Did you have a dental problem in the last 6 months where you did not have access to dental care?: No Was dental information given to patient?: Patient has dentist HPI 6 mth f/u HPI Details hyperlip hypothyr and htn on rx; doing well and compliant [facility] Medical History (Updated 10/18/23 @ 14:05 by Barbara Loomis NP) Hyperlipidemia CAD (coronary artery disease) HTN (hypertension) (HFpEF) heart failure with preserved ejection fraction Aortic stenosis PAD (peripheral artery disease) Wound infection 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 Son No problems noted. Social History Housing: Apartment Alcohol intake: never Patient Tobacco Use Status: Former Tobacco user e-Cigarette/Vaping Use: Never Used Second Hand Smoke Exposure: Yes service: No Current occupational status: retired Cognitive needs: Yes (walker) Hearing needs: No Vision needs: Yes (glasses) Questionnaire PHQ-9 Over the last 2 weeks, how often have you been bothered by any of the following problems? 1. Little interest or pleasure in doing things: not at all 2. Feeling down, depressed, or hopeless: not at all 3. Trouble falling or staying asleep, or sleeping too much: not at all 4. Feeling tired or having little energy: not at all 5. Poor appetite or overeating: not at all 6. Feeling bad about yourself - or that you are a failure or have let yourself or your family down: not at all 7. Trouble concentrating on things, such as reading the newspaper or watching television: not at all 8. Moving or speaking so slowly that other people could have noticed. Or the opposite - being so fidgety or restless that you have been moving around a lot more than usual: not at all 9. Thoughts that you would be better off or of hurting yourself in some way: not at all Total score: 0 Depression Screening Interpretation: Negative Depression Screening Done: Yes 03149 - PHQ-9 Billing: Yes Source: Developed by Drs. Abdulaziz Maldonado, Jacqui Jimenez, Juvenal Bustos and colleagues, with an educational josiane from [employer]. Thrive Questionnaire Date Thrive assessed: 01/11/24 I am a: Patient What is your living situation today?: I have a steady place to live Within the past 12 months, did the food you bought not last and you didn't have the money to get more?: Never true Within the past 12 months, did you worry whether your food would run out before you got money to buy more?: Never true Do you have trouble paying for medicines?: No Do you have trouble getting transportation to medical appointments?: No Do you have trouble paying your heating and electricity bill?: No Do you have trouble taking care of your child, family member or friend?: No Do you have trouble with day-to-day activities such as bathing, preparing meals, shopping, managing finances, etc.?: No Are you currently unemployed and looking for a job?: No Are you interested in more education?: No Please select the resources that you would like help with: None THRIVE Score: 0 AUDIT C Alcohol Use Questionnaire (AUDIT-C) 1. How often do you have a drink containing alcohol?: Never Total Score: 0 LORENZO-7 AMB Questionnaire LORENZO-7 Date LORENZO - 7 assessed: 01/11/24 Feeling nervous, anxious, or on edge: 0 = Not at all Not being able to stop or control worryin = Not at all Worrying too much about different things: 0 = Not at all Trouble relaxin = Not at all Being so restless that it is hard to sit still: 0 = Not at all Becoming easily annoyed or irritable: 0 = Not at all Feeling afraid as if something awful might happen: 0 = Not at all Total LORENZO-7 score (0-4 normal; 5-9 mild; 10-14 moderate; 15-21 severe): 0 Source: Developed by Drs. Abdulaziz Maldonado, Jacqui Jimenez, Juvenal Bustos and colleagues, with an educational josiane from [employer]. Review of Systems Const Denies chills, Denies headache(s) and Denies weight loss ENT Denies headache(s) Card Denies chest pain, Denies syncope, Denies irregular heart rhythm and Denies dyspnea Resp Denies chest congestion, Denies cough and Denies dyspnea GI Denies abdominal pain, Denies change in stool character, Denies nausea and Denies vomiting Musc Denies deformity and Denies joint swelling Neuro Denies syncope and Denies headache(s) Physical exam (Primary Care) Vital Signs: Last Vital Signs Pulse 82 01/11/24 10:23 BP 144/72 H 01/11/24 10:23 Pulse Ox 95 01/11/24 10:23 Oxygen Delivery Method Room Air 01/11/24 10:23 BMI result Body Mass Index 20.2 Tobacco/Smoking Status: Tobacco use Status Tobacco use date assessed 01/11/24 01/11/24 10:25 Patient Tobacco Use Status Former Tobacco user 01/11/24 10:25 e-Cigarette/Vaping Use Never Used 01/11/24 10:25 PHQ-9: PHQ-9 Score PHQ-9: Total score 0 01/11/24 10:38 Depression Screening Interpretation: Negative Thrive Assessment: Date of Thrive Assessment Date Thrive assessed 01/11/24 01/11/24 10:25 Const General: cooperative, comfortable, no acute distress and alert Neck Neck: Yes no lymphadenopathy Thyroid: Thyroid normal Resp Effort & Inspection: normal respiratory effort Auscultation: clear to auscultation bilaterally Percussion: percussion normal Cardio Jugular venous distension: no JVD Palpation: normal PMI Rate: regular rate Rhythm: regular rhythm Heart sounds: S1 normal heart sound present and S2 normal heart sound present GI Inspection: Yes normal to inspection Palpation (GI): No hepatosplenomegaly present Skin General skin exam: no rashes or lesions noted Extrem General: Yes no clubbing, cyanosis or edema Assessment and Plan Assessment & Plan (1) Hypothyroidism: Code(s): E03.9 - Hypothyroidism, unspecified Plan: stable; do labs (2) HTN (hypertension): Code(s): I10 - Essential (primary) hypertension Plan: stable; same rx (3) Hyperlipidemia: Code(s): E78.5 - Hyperlipidemia, unspecified Plan: stable; same rx Orders: Orders Complete Blood Count Auto Diff Today D64.9 - Anemia, unspecified Thyroid Stimulating Hormone Today E03.9 - Hypothyroidism, unspecified Comprehensive [place]. Panel Fast Today N28.9 - Disorder of kidney and ureter, unspecified Lipid Panel Today E78.5 - Hyperlipidemia, unspecified Coding Level of Care Code Est Pt Level 4 (59381) Diagnoses Hypothyroidism E03.9 HTN (hypertension) I10 Hyperlipidemia E78.5
== END 2024-01-11 10:47 | disposition home or self-care (01) ==
PROVIDERS: PCP Internal Medicine; Visit Provider Internal Medicine
DX: E03.9 Hypothyroidism, unspecified (principal); I10 Essential (primary) hypertension; E78.5 Hyperlipidemia, unspecified
CPT/HCPCS: 99214

== ENCOUNTER 2024-01-19 09:11 | Outpatient (REF) | payer MEDICARE, SELFPAY ==
[2024-01-19 09:30] LABS: MANUAL DIFF FLAG NO
[2024-01-19 09:41] LABS: Basophils Absolute Auto 0.1 X10*3/uL (0.0-0.2); Basophils Percent Auto 1.1 % (0-2); Eosinophils Absolute Auto 0.1 X10*3/uL (0.0-0.4); Eosinophils Percent Auto 2.3 % (0-4); Hematocrit 33.5 % (37.0-47.0); Hemoglobin 10.7 g/dl (12.0-16.0); Imm Gran Abs Auto 0.01 X10*3/uL (0.00-0.03); Imm Gran Pct Auto 0.2 % (0.0-0.4); Lymphocytes Absolute Auto 1.2 X10*3/uL (1.2-4.9); Lymphocytes Percent Auto 25.9 % (20-40); Mean Corpuscular HGB Conc 31.9 g/dl (31.0-35.0); Mean Corpuscular Volume 93.8 fL (80.0-98.0); Mean Platelet Volume 10.6 fL (9.4-12.3); Monocytes Absolute Auto 0.6 X10*3/uL (0.1-1.2); Monocytes Percent Auto 12.4 % (2-11); Neutrophils Absolute Auto 2.8 x10*3/uL (2.0-8.3); Neutrophils Percent Auto 58.1 % (45-73); Platelet Count 190 X10*3/uL (160-400); Red Blood Count 3.57 X10*6/uL (4.20-5.50); Red Cell Distribution Width 13.4 % (11.0-16.0); White Blood Count 4.8 X10*3/uL (4.8-10.8)
[2024-01-19 10:28] LABS: Alanine Aminotransferase 10 U/L (0-31); Alkaline Phosphatase 54 U/L (39-117); Anion Gap 16 (12-20); Aspartate Amino Transferase 18 U/L (5-31); Bilirubin Total 0.7 mg/dL (0.0-1.0); Blood Urea Nitrogen 24 mg/dL (9-16); Calcium 10.1 mg/dL (8.4-10.2); Carbon Dioxide 26 mmol/L (22-29); Chloride 106 mmol/L (96-108); Cholesterol 128 mg/dL (<200); Estimated Glomerular Filt Rate > 60; Glucose Fasting 110 mg/dL (60-99); HDL Cholesterol 37 mg/dL (>40); LDL Cholesterol Calculated 63 mg/dL (<100); Potassium 3.8 mmol/L (3.3-5.1); Sodium 144 mmol/L (135-145); Total Protein 7.2 g/dL (6.5-8.0); Triglycerides 143 mg/dL (<150)
[2024-01-19 10:44] LABS: Thyroid Stimulating Hormone 0.35 uIU/mL (0.32-4.0)
== END 2024-01-19 09:12 | disposition home or self-care (01) ==
LOC: HO.LAB 09:11
PROVIDERS: PCP Internal Medicine; Visit Provider Internal Medicine
DX: N28.9 Disorder of kidney and ureter, unspecified (principal); E03.9 Hypothyroidism, unspecified; D64.9 Anemia, unspecified; E78.5 Hyperlipidemia, unspecified
CPT/HCPCS: 36415; 80053; 80061; 84443; 85025

== ENCOUNTER 2024-06-13 08:39 | Outpatient (AMB) | payer MEDICARE, SELFPAY ==
--- NOTE | 2024-06-13 08:41 | MHC.PC.OV ---
Vital Signs 06/13/24 08:42 Height 5 ft 3 in Weight 112 lb BMI 19.8 BP 132/70 Blood Pressure Location Lt brachial Position Sitting Pulse 72 Pulse Source Pulse Oximeter Pulse Oximetry (%) 97 Oxygen Delivery Method Room Air Intake Visit Reasons: black spots on foot Intake Note: patient here c/o spots on foot/ referral request Assistant Professor Of Criminal Justice Required: No Accompanied by: Self / Same As Patient Allergies aspirin [Aspirin] Allergy (Mild, Verified 06/13/24 08:44) ACID REFLUX, gi upset ciprofloxacin [From CIPRO] Allergy (Unknown, Verified 06/13/24 08:44) RASH Sulfa (Sulfonamide Antibiotics) [SULFA (SULFONAMIDE ANTIBIOTICS)] Allergy (Unknown, Verified 06/13/24 08:44) DIZZINESS Medication List - Last Reconciled 06/13/24 by Owen Harris MD albuterol sulfate 90 mcg/actuation 2 puffs PO Q4H PRN aspirin (Ecotrin Low Strength) 81 mg PO DAILY atorvastatin 20 mg PO DAILY calcium carbonate-vitamin D3 600 mg-5 mcg (200 unit) (Calcium 600 + D(3)) caps PO DAILY docusate sodium 50 mg PO DAILY furosemide 40 mg PO DAILY levothyroxine 88 mcg PO DAILY losartan 50 mg PO DAILY metoprolol succinate ER 50 mg PO DAILY pantoprazole 40 mg PO DAILY vitamin E (dl, acetate) 400 units PO DAILY Tobacco use date assessed: 01/11/24 Fall risk assessment: No Falls in past year Last assessed Fall Risk: 06/13/24 Dental Screening Dental Screen Date: 06/13/24 Did you have a dental visit in the last 12 months?: No Did you have a dental problem in the last 6 months where you did not have access to dental care?: No Was dental information given to patient?: Patient has dentist HPI black spots on foot HPI Details multiple black spots on toes of right foot; seeing podiatry who is concerned; no pain PFSH Medical History (Updated 10/18/23 @ 14:05 by Barbara Loomis NP) Hyperlipidemia CAD (coronary artery disease) HTN (hypertension) (HFpEF) heart failure with preserved ejection fraction Aortic stenosis PAD (peripheral artery disease) Wound infection 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 Son No problems noted. Social History Housing: Apartment Alcohol intake: never Patient Tobacco Use Status: Former Tobacco user e-Cigarette/Vaping Use: Never Used Second Hand Smoke Exposure: Yes service: No Current occupational status: retired Cognitive needs: Yes (walker) Hearing needs: No Vision needs: Yes (glasses) Questionnaire Thrive Questionnaire Date Thrive assessed: 01/11/24 LORENZO-7 AMB Questionnaire LORENZO-7 Date LORENZO - 7 assessed: 01/11/24 Source: Developed by Drs. Abdulaziz Maldonado, Jacqui Jimenez, Juvenal Bustos and colleagues, with an educational josiane from [employer]. Review of Systems Const Denies chills, Denies headache(s) and Denies weight loss ENT Denies headache(s) Card Denies chest pain, Denies syncope, Denies irregular heart rhythm and Denies dyspnea Resp Denies chest congestion, Denies cough and Denies dyspnea GI Denies abdominal pain, Denies change in stool character, Denies nausea and Denies vomiting Musc Denies deformity and Denies joint swelling Neuro Denies syncope and Denies headache(s) Physical exam (Primary Care) Vital Signs: Last Vital Signs Pulse 72 06/13/24 08:42 BP 132/70 06/13/24 08:42 Pulse Ox 97 06/13/24 08:42 Oxygen Delivery Method Room Air 06/13/24 08:42 BMI result Body Mass Index 19.8 Tobacco/Smoking Status: Tobacco use Status Tobacco use date assessed 01/11/24 06/13/24 08:47 Patient Tobacco Use Status Former Tobacco user 06/13/24 08:47 e-Cigarette/Vaping Use Never Used 06/13/24 08:47 Thrive Assessment: Date of Thrive Assessment Date Thrive assessed 01/11/24 06/13/24 08:47 Const General: cooperative, comfortable, no acute distress and alert Neck Neck: Yes no lymphadenopathy Thyroid: Thyroid normal Resp Effort & Inspection: normal respiratory effort Auscultation: clear to auscultation bilaterally Percussion: percussion normal Cardio Jugular venous distension: no JVD Palpation: normal PMI Rate: regular rate Rhythm: regular rhythm Heart sounds: S1 normal heart sound present and S2 normal heart sound present GI Inspection: Yes normal to inspection Palpation (GI): No hepatosplenomegaly present Skin Other: multiple blood blisters and black spots on toes of right foot; good pulses Extrem General: Yes no clubbing, cyanosis or edema Assessment and Plan Assessment & Plan (1) Atherosclerotic PVD with ulceration: Code(s): I70.209 - Unspecified atherosclerosis of [place] arteries of extremities, unspecified extremity; L98.499 - Non-pressure chronic ulcer of skin of other sites with unspecified severity Plan: arterial duplex Orders: Orders US arterial duplex UE RT Today I73.9 - Peripheral vascular disease, unspecified Coding Level of Care Code Est Pt Level 3 (71128) Diagnoses Atherosclerotic PVD with ulceration I70.209; L98.499
[2024-06-13 08:42] VITALS: BP 132/70; PULSE 72; O2SAT 97; BMI 19.8
== END 2024-06-13 08:55 | disposition home or self-care (01) ==
PROVIDERS: PCP Internal Medicine; Visit Provider Internal Medicine
DX: I70.209 Unspecified atherosclerosis of native arteries of extremities, unspecified extremity (principal); L98.499 Non-pressure chronic ulcer of skin of other sites with unspecified severity
CPT/HCPCS: 99213

== ENCOUNTER 2024-06-26 08:17 | Outpatient (AMB) | payer MEDICARE, SELFPAY ==
[2024-06-26 08:29] VITALS: BP 122/60; PULSE 78; BMI 19.9
--- NOTE | 2024-06-26 08:29 | A.OFFVIS_ITS ---
Vital Signs 06/26/24 08:29 Height 5 ft 3 in Weight 112 lb 6.972 oz BMI 19.9 BP 122/60 Blood Pressure Location Lt brachial Position Sitting Pulse 78 Pulse Source Monitor Intake Visit Reasons: over due f/u refill meds Allergies aspirin [Aspirin] Allergy (Mild, Verified 06/13/24 08:44) ACID REFLUX, gi upset ciprofloxacin [From CIPRO] Allergy (Unknown, Verified 06/13/24 08:44) RASH Sulfa (Sulfonamide Antibiotics) [SULFA (SULFONAMIDE ANTIBIOTICS)] Allergy (Unknown, Verified 06/13/24 08:44) DIZZINESS Medication List - Last Reconciled 06/26/24 by Demetrio Fine MD albuterol sulfate 90 mcg/actuation 2 puffs PO Q4H PRN aspirin (Ecotrin Low Strength) 81 mg PO DAILY atorvastatin 20 mg PO DAILY calcium carbonate-vitamin D3 600 mg-5 mcg (200 unit) (Calcium 600 + D(3)) caps PO DAILY docusate sodium 50 mg PO DAILY furosemide 40 mg PO DAILY levothyroxine 88 mcg PO DAILY losartan 50 mg PO DAILY metoprolol succinate ER 50 mg PO DAILY pantoprazole 40 mg PO DAILY vitamin E (dl, acetate) 400 units PO DAILY HPI Comments Details: Lucio comes for follow-up. Patient declines to undergo aortic valve replacement which is fine. She continues to have exertional shortness of breath walking 1 length of the hallways in her apartment building. She then rest and then keeps going after that. She denies any worsening orthopnea, PND, leg edema. Takes all her medications. No exertional chest pressure lightheadedness. She intermittently gets chest pressure at rest. Taking all her medications. [facility] Medical History Hyperlipidemia CAD (coronary artery disease) HTN (hypertension) (HFpEF) heart failure with preserved ejection fraction Aortic stenosis PAD (peripheral artery disease) Wound infection 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 Son No problems noted. Social History Housing: Apartment Alcohol intake: never Patient Tobacco Use Status: Former Tobacco user e-Cigarette/Vaping Use: Never Used Second Hand Smoke Exposure: Yes service: No Current occupational status: retired Cognitive needs: Yes (walker) Hearing needs: No Vision needs: Yes (glasses) Review of Systems Const Denies weakness ENT Denies dizziness Card Denies chest pain, Denies chest pain with activity, Denies syncope, Denies rapid heart rate, Denies pedal edema, Denies edema, Denies leg edema, Denies lightheadedness, Denies palpitations, Denies dyspnea, Denies dyspnea on exertion and Denies orthopnea Resp Denies cough, Denies dyspnea and Denies dyspnea on exertion GI Denies hematochezia and Denies change in stool character Musc Denies abnormal gait, Denies muscle cramps, Denies muscle weakness, Denies numbness, Denies radiating pain into limb and Denies tingling Neuro Denies abnormal gait, Denies dizziness, Denies syncope, Denies numbness, Denies tingling and Denies weakness Endo Denies palpitations Physical Exam Vital Signs: Last Vital Signs Pulse 78 06/26/24 08:29 BP 122/60 06/26/24 08:29 BMI result Body Mass Index 19.9 Const General: cooperative, comfortable, no acute distress, alert and awake Nutritional Appearance: underweight and other (Frail elderly woman) Orientation/consciousness: patient oriented x3 Limitations: ambulation with walker Neck Neck: Yes trachea midline, Yes supple and Yes no JVD Resp Effort & Inspection: normal respiratory effort Auscultation: clear to auscultation bilaterally Cardio Jugular venous distension: no JVD Rate: regular rate Rhythm: regular rhythm Heart sounds: S1 normal heart sound present, S2 normal heart sound present (Absent) and Murmur heart sound present systolic late, decrescendo, crescendo, harsh and at the right sternal border GI Auscultation: normal bowel sounds Skin General skin exam: no rashes or lesions noted and ecchymosis Neuro General: patient oriented x3 and no focal motor deficits Extrem General: No clubbing, No cyanosis and Yes edema (Minimal lower extremity) Psych Appearance: grossly normal Office Procedures EKG Details: EKG shows normal sinus rhythm with septal infarct with nonspecific ST changes [id number], Complete Assessment & Plan Assessment & Plan (1) Aortic stenosis: Comment: Severe aortic stenosis Code(s): I35.0 - Nonrheumatic aortic (valve) stenosis Category: Medical Plan: Aortic stenosis which is severe with exertional shortness of breath the symptoms but these are not worsening. She has no other symptoms of aortic stenosis. Patient does not want to undergo any further intervention. This is okay given her advanced age as well as frailty. Discussed potential risk of progressive aortic stenosis and associated development of heart failure and/or limitations lifestyle. She understands it. Advised to call me with worsening symptoms. (2) (HFpEF) heart failure with preserved ejection fraction: Code(s): I50.30 - Unspecified diastolic (congestive) heart failure Category: Medical Plan: Heart failure preserved ejection fraction, clinically euvolemic and well compensated. Currently on Lasix 40 mg daily. She understands management of heart failure and to take extra Lasix when she develops more symptoms. Continue daily weight monitoring avoidance of salt loading. Continue aggressive blood pressure control which is currently well optimized. Likelihood of progressive heart failure syndrome related to untreated aortic stenosis was discussed as well. (3) CAD (coronary artery disease): Code(s): I25.10 - Atherosclerotic heart disease of [place] coronary artery without angina pectoris Category: Medical Plan: CAD with remote coronary artery bypass grafting with no symptoms of angina currently. Continue low-dose aspirin therapy. Continue statin therapy. Blood pressure is currently well optimized advised to monitor blood pressure at home maintain a log. Will follow up in the clinic in 6 months time, sooner p.r.n.. Thank you for allowing me to partake in her care Coding Level of Care Code Est Pt Level 4 (52223) Diagnoses Aortic stenosis I35.0 (HFpEF) heart failure with preserved ejection fraction I50.30 CAD (coronary artery disease) I25.10 CPT Codes EKG - CPT: 13805-[id number], Complete ([id number])
== END 2024-06-26 08:48 | disposition home or self-care (01) ==
LOC: HO.HCS 08:17
PROVIDERS: PCP Internal Medicine; Visit Provider Internal Medicine Cardiovascular Disease
DX: I35.0 Nonrheumatic aortic (valve) stenosis (principal); I50.30 Unspecified diastolic (congestive) heart failure; I25.10 Atherosclerotic heart disease of native coronary artery without angina pectoris
CPT/HCPCS: 93010; 99214

== ENCOUNTER → 2024-06-26 08:17 | Outpatient (BNVA) | payer MEDICARE, SELFPAY | PROVIDERS: PCP Internal Medicine; Visit Provider Internal Medicine Cardiovascular Disease | DX: I35.0 Nonrheumatic aortic (valve) stenosis (principal); I50.30 Unspecified diastolic (congestive) heart failure; I25.10 Atherosclerotic heart disease of native coronary artery without angina pectoris | CPT/HCPCS: 93005; 99212 ==

== ENCOUNTER 2024-07-13 09:31 | Outpatient (AMB) | payer MEDICARE, SELFPAY ==
--- NOTE | 2024-07-13 09:31 | A.OFFPC_ITS ---
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 Accompanied by: Self / Same As Patient Allergies aspirin [Aspirin] Allergy (Mild, Verified 07/13/24 09:32) ACID REFLUX, gi upset ciprofloxacin [From CIPRO] Allergy (Unknown, Verified 07/13/24 09:32) RASH Sulfa (Sulfonamide Antibiotics) [SULFA (SULFONAMIDE ANTIBIOTICS)] Allergy (Unknown, Verified 07/13/24 09:32) DIZZINESS Medication List - Last Reconciled 07/13/24 by Owen Harris MD albuterol sulfate 90 mcg/actuation 2 puffs PO Q4H PRN aspirin (Ecotrin Low Strength) 81 mg PO DAILY atorvastatin 20 mg PO DAILY calcium carbonate-vitamin D3 600 mg-5 mcg (200 unit) (Calcium 600 + D(3)) caps PO DAILY docusate sodium 50 mg PO DAILY furosemide 40 mg PO DAILY levothyroxine 88 mcg PO DAILY losartan 50 mg PO DAILY metoprolol succinate ER 50 mg PO DAILY pantoprazole 40 mg PO DAILY vitamin E (dl, acetate) 400 units PO DAILY Tobacco use date assessed: 01/11/24 Fall risk assessment: No Falls in past year Last assessed Fall Risk: 07/13/24 Dental Screening Dental Screen Date: 06/13/24 HPI 6mth f/u HPI Details hypothyroidism on rx; due for labs; compliant [facility] Medical History Hyperlipidemia CAD (coronary artery disease) HTN (hypertension) (HFpEF) heart failure with preserved ejection fraction Aortic stenosis PAD (peripheral artery disease) Wound infection 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 Son No problems noted. Social History Housing: Apartment Alcohol intake: never Patient Tobacco Use Status: Former Tobacco user e-Cigarette/Vaping Use: Never Used Second Hand Smoke Exposure: Yes service: No Current occupational status: retired Cognitive needs: Yes (walker) Hearing needs: No Vision needs: Yes (glasses) Questionnaire PHQ-9 Over the last 2 weeks, how often have you been bothered by any of the following problems? 1. Little interest or pleasure in doing things: not at all 2. Feeling down, depressed, or hopeless: not at all 3. Trouble falling or staying asleep, or sleeping too much: not at all 4. Feeling tired or having little energy: not at all 5. Poor appetite or overeating: not at all 6. Feeling bad about yourself - or that you are a failure or have let yourself or your family down: not at all 7. Trouble concentrating on things, such as reading the newspaper or watching television: not at all 8. Moving or speaking so slowly that other people could have noticed. Or the opposite - being so fidgety or restless that you have been moving around a lot more than usual: not at all 9. Thoughts that you would be better off or of hurting yourself in some way: not at all Total score: 0 Depression Screening Interpretation: Negative Depression Screening Done: Yes [id number] - PHQ-9 Billing: Yes Source: Developed by Drs. Abdulaziz Maldonado, Juvenal Gagnon and colleagues, with an educational josiane from [email or web address]. Thrive Questionnaire Date Thrive assessed: 01/11/24 AUDIT C Alcohol Use Questionnaire (AUDIT-C) 1. How often do you have a drink containing alcohol?: Never Total Score: 0 LORENZO-7 AMB Questionnaire LORENZO-7 Date LORENZO - 7 assessed: 01/11/24 Source: Developed by Drs. Abdulaziz Maldonado, Juvenal Gagnon and colleagues, with an educational josiane from [email or web address]. Review of Systems Const Denies chills, Denies headache(s) and Denies weight loss ENT Denies headache(s) Card Denies chest pain, Denies syncope, Denies irregular heart rhythm and Denies dyspnea Resp Denies chest congestion, Denies cough and Denies dyspnea GI Denies abdominal pain, Denies change in stool character, Denies nausea and Denies vomiting Musc Denies deformity and Denies joint swelling Neuro Denies syncope and Denies headache(s) Physical exam (Primary Care) Vital Signs: Last Vital Signs Pulse 85 07/13/24 09:32 BP 142/78 H 07/13/24 09:32 Pulse Ox 95 07/13/24 09:32 Oxygen Delivery Method Room Air 07/13/24 09:32 BMI result Body Mass Index 19.7 Tobacco/Smoking Status: Tobacco use Status Tobacco use date assessed 01/11/24 07/13/24 09:39 Patient Tobacco Use Status Former Tobacco user 07/13/24 09:39 e-Cigarette/Vaping Use Never Used 07/13/24 09:39 PHQ-9: PHQ-9 Score PHQ-9: Total score 0 07/13/24 09:39 Depression Screening Interpretation: Negative Thrive Assessment: Date of Thrive Assessment Date Thrive assessed 01/11/24 07/13/24 09:39 Const General: cooperative, comfortable, no acute distress and alert Neck Neck: Yes no lymphadenopathy Thyroid: Thyroid normal Resp Effort & Inspection: normal respiratory effort Auscultation: clear to auscultation bilaterally Percussion: percussion normal Cardio Jugular venous distension: no JVD Palpation: normal PMI Rate: regular rate Rhythm: regular rhythm Heart sounds: S1 normal heart sound present and S2 normal heart sound present GI Inspection: Yes normal to inspection Palpation (GI): No hepatosplenomegaly present Skin General skin exam: no rashes or lesions noted Extrem General: Yes no clubbing, cyanosis or edema Assessment and Plan Assessment & Plan (1) Hypothyroidism: Code(s): E03.9 - Hypothyroidism, unspecified Plan: stable; do labs Orders: Orders Lipid Panel Today Z13.220 - Encounter for screening for lipoid disorders Thyroid Stimulating Hormone Today Z13.29 - Encounter for screening for other suspected endocrine disorder Coding Level of Care Code Est Pt Level 3 (07790) Diagnoses Hypothyroidism E03.9
[2024-07-13 09:32] VITALS: BP 142/78; PULSE 85; O2SAT 95; BMI 19.7
== END 2024-07-13 09:48 | disposition home or self-care (01) ==
PROVIDERS: PCP Internal Medicine; Visit Provider Internal Medicine
DX: E03.9 Hypothyroidism, unspecified (principal)
CPT/HCPCS: 99213

== ENCOUNTER 2024-10-08 09:51 | Outpatient (AMB) | payer MEDICARE, SELFPAY ==
--- NOTE | 2024-10-08 10:51 | MHC.OFFWIV ---
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 Patient Tobacco Use Status: Former Tobacco user Allergies aspirin [Aspirin] Allergy (Mild, Verified 10/08/24 10:58) ACID REFLUX, gi upset ciprofloxacin [From CIPRO] Allergy (Unknown, Verified 10/08/24 10:58) RASH Sulfa (Sulfonamide Antibiotics) [SULFA (SULFONAMIDE ANTIBIOTICS)] Allergy (Unknown, Verified 10/08/24 10:58) DIZZINESS Do you need a note to return to daycare/school/sports/work: No HPI HPI Comments History of Present Illness Details History of Present Illness The patient is an 89-year-old female presenting with right-sided ear pain, sore throat, and headache. The symptoms began approximately four days ago. The patient initially experienced a sore throat that progressed to the appearance of a cold sore, prompting the application of topical treatment, which subsequently led to the exacerbation of symptoms. The patient reports experiencing significant right ear pain followed by a severe headache. The symptoms have progressively worsened, particularly on the right side. There is no report of fever accompanying these symptoms. The patient denies nasal congestion or changes in hearing, though hearing on the affected side seems slightly diminished. [id number] analgesics like Tylenol have been used, providing some relief for the headache. Physical Exam General: Cooperative, healthy appearing, comfortable and no acute distress Orientation/consciousness: Patient oriented x3 Limitations: No limitations Head: Normal to inspection Ears: Hearing slightly worse on the right side, right ear canal painful and TM has erythema and effusion, left ear normal Nose: Normal external nose present, Normal nares present and No nasal discharge present Face and sinus: Normal facial exam and Yes sinuses nontender Mouth: Normal oral and palatal mucosa present and moist mucous membranes Throat: Yes tonsils normal, Yes uvula midline. Posterior oropharynx erythema Eyes: Appearance normal, both eyes and all related structures Neck: Normal visual inspection Skin: No rashes or lesions noted Neuro: Patient oriented x3 Extremities: Normal to inspection and Yes no clubbing, cyanosis or edema PFSH Medical History Hyperlipidemia CAD (coronary artery disease) HTN (hypertension) (HFpEF) heart failure with preserved ejection fraction Aortic stenosis PAD (peripheral artery disease) Wound infection 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 Son No problems noted. Social History Housing: Apartment Alcohol intake: never Patient Tobacco Use Status: Former Tobacco user e-Cigarette/Vaping Use: Never Used Second Hand Smoke Exposure: Yes service: No Current occupational status: retired Cognitive needs: Yes (walker) Hearing needs: No Vision needs: Yes (glasses) Review of Systems Const All systems reviewed & are unremarkable except as noted in HPI and below Physical Exam Vital Signs: Last Vital Signs Temp 98.6 F 10/08/24 10:52 Pulse 64 10/08/24 10:52 BP 126/80 10/08/24 10:52 Pulse Ox 97 10/08/24 10:52 Oxygen Delivery Method Room Air 10/08/24 10:52 BMI result Body Mass Index 19.3 Assessment & Plan Assessment & Plan (1) Otitis media: Code(s): H66.90 - Otitis media, unspecified, unspecified ear Qualifiers: Otitis media type: suppurative Chronicity: acute Laterality: right Recurrence: non-recurrent Spontaneous tympanic membrane rupture: without spontaneous rupture Qualified Code(s): H66.001 - Acute suppurative otitis media without spontaneous rupture of ear drum, right ear Plan: Sent antibiotic to pharmacy. Medications: New amoxicillin 875 mg PO Q12H 14 tabs 0RF Coding Level of Care Code Est Pt Level 3 (44254) Diagnoses Non-recurrent acute suppurative otitis media of right ear without spontaneous rupture of tympanic membrane H66.001 Otitis media type: suppurative Chronicity: acute Laterality: right Recurrence: non-recurrent Spontaneous tympanic membrane rupture: without spontaneous rupture
[2024-10-08 10:52] VITALS: BP 126/80; PULSE 64; TEMP 37; O2SAT 97; BMI 19.3
== END 2024-10-08 11:38 | disposition home or self-care (01) ==
PROVIDERS: PCP Internal Medicine; Visit Provider Physician Assistant
DX: H66.001 Acute suppurative otitis media without spontaneous rupture of ear drum, right ear (principal)

== ENCOUNTER → 2024-10-08 09:51 | Outpatient (BNVA) | payer MEDICARE, SELFPAY | PROVIDERS: PCP Internal Medicine; Visit Provider Physician Assistant | DX: H66.001 Acute suppurative otitis media without spontaneous rupture of ear drum, right ear (principal) | CPT/HCPCS: 99212 ==

== ENCOUNTER 2024-10-26 10:32 | Outpatient (AMB) | payer MEDICARE, SELFPAY ==
[2024-10-26 10:37] VITALS: BP 128/60; PULSE 69; O2SAT 99; BMI 18.6
--- NOTE | 2024-10-26 10:37 | MHC.PC.OV ---
Vital Signs 10/26/24 10:37 Height 5 ft 3 in Weight 105 lb BMI 18.6 BP 128/60 Blood Pressure Location Lt brachial Position Sitting Pulse 69 Pulse Source Pulse Oximeter Pulse Oximetry (%) 99 Oxygen Delivery Method Room Air Intake Visit Reasons: Ear pain not getting better Allergies aspirin [Aspirin] Allergy (Mild, Verified 10/26/24 10:44) ACID REFLUX, gi upset ciprofloxacin [From CIPRO] Allergy (Unknown, Verified 10/26/24 10:44) RASH Sulfa (Sulfonamide Antibiotics) [SULFA (SULFONAMIDE ANTIBIOTICS)] Allergy (Unknown, Verified 10/26/24 10:44) DIZZINESS Tobacco use date assessed: 10/26/24 Fall risk assessment: No Falls in past year Last assessed Fall Risk: 10/26/24 Dental Screening Dental Screen Date: 10/26/24 Did you have a dental visit in the last 12 months?: No Did you have a dental problem in the last 6 months where you did not have access to dental care?: No Was dental information given to patient?: Patient has dentist HPI Ear pain not getting better HPI Details right ear ache for a few weeks PFSH Medical History Hyperlipidemia CAD (coronary artery disease) HTN (hypertension) (HFpEF) heart failure with preserved ejection fraction Aortic stenosis PAD (peripheral artery disease) Wound infection 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 Son No problems noted. Social History Housing: Apartment Alcohol intake: never Patient Tobacco Use Status: Former Tobacco user e-Cigarette/Vaping Use: Never Used Second Hand Smoke Exposure: Yes service: No Current occupational status: retired Cognitive needs: Yes (walker) Hearing needs: No Vision needs: Yes (glasses) Questionnaire Thrive Questionnaire Date Thrive assessed: 01/11/24 LORENZO-7 AMB Questionnaire LORENZO-7 Date LORENZO - 7 assessed: 01/11/24 Source: Developed by Drs. Abdulaziz Maldonado, Jacqui Jimenez, Juvenal Bustos and colleagues, with an educational josiane from [employer]. Review of Systems Const Denies chills, Denies headache(s) and Denies weight loss ENT Denies headache(s) Card Denies chest pain, Denies syncope, Denies irregular heart rhythm and Denies dyspnea Resp Denies chest congestion, Denies cough and Denies dyspnea GI Denies abdominal pain, Denies change in stool character, Denies nausea and Denies vomiting Musc Denies deformity and Denies joint swelling Neuro Denies syncope and Denies headache(s) Physical exam (Primary Care) Vital Signs: Last Vital Signs Pulse 69 10/26/24 10:37 BP 128/60 10/26/24 10:37 Pulse Ox 99 10/26/24 10:37 Oxygen Delivery Method Room Air 10/26/24 10:37 BMI result Body Mass Index 18.6 Tobacco/Smoking Status: Tobacco use Status Tobacco use date assessed 10/26/24 10/26/24 10:46 Patient Tobacco Use Status Former Tobacco user 10/26/24 10:46 e-Cigarette/Vaping Use Never Used 10/26/24 10:46 Thrive Assessment: Date of Thrive Assessment Date Thrive assessed 01/11/24 10/26/24 10:46 Const General: cooperative, comfortable, no acute distress and alert HENMT Other: right cerum impaction Neck Neck: Yes no lymphadenopathy Thyroid: Thyroid normal Resp Effort & Inspection: normal respiratory effort Auscultation: clear to auscultation bilaterally Percussion: percussion normal Cardio Jugular venous distension: no JVD Palpation: normal PMI Rate: regular rate Rhythm: regular rhythm Heart sounds: S1 normal heart sound present and S2 normal heart sound present GI Inspection: Yes normal to inspection Palpation (GI): No hepatosplenomegaly present Skin General skin exam: no rashes or lesions noted Extrem General: Yes no clubbing, cyanosis or edema Coding Level of Care Code Est Pt Level 3 (61589) Diagnoses Cerumen impaction H61.20 Assessment & Plan Assessment & Plan (1) Cerumen impaction: Code(s): H61.20 - Impacted cerumen, unspecified ear Plan: ref ent; use Debrox Orders: Referrals Ear/Nose/Throat Referral H61.20 - Impacted cerumen, unspecified ear
== END 2024-10-26 11:35 | disposition home or self-care (01) ==
PROVIDERS: PCP Internal Medicine; Visit Provider Internal Medicine
DX: H61.21 Impacted cerumen, right ear (principal)

== ENCOUNTER → 2024-10-26 10:32 | Outpatient (BNVA) | payer MEDICARE, SELFPAY | PROVIDERS: PCP Internal Medicine; Visit Provider Internal Medicine | DX: H61.20 Impacted cerumen, unspecified ear (principal) | CPT/HCPCS: 99212 ==

== ENCOUNTER 2024-11-05 09:07 | Outpatient (AMB) | payer MEDICARE, SELFPAY ==
--- NOTE | 2024-11-05 09:31 | AM.OFFWIN_ITS ---
Intake Vital Signs 11/05/24 09:34 Weight 106 lb BP 128/80 Blood Pressure Location Lt brachial Position Sitting Intake Visit Reasons: EP Wax removal Intake Note: Patient here for right ear blockage Patient Tobacco Use Status: Former Tobacco user Allergies aspirin [Aspirin] Allergy (Mild, Verified 11/05/24 09:35) ACID REFLUX, gi upset ciprofloxacin [From CIPRO] Allergy (Unknown, Verified 11/05/24 09:35) RASH Sulfa (Sulfonamide Antibiotics) [SULFA (SULFONAMIDE ANTIBIOTICS)] Allergy (Unknown, Verified 11/05/24 09:35) DIZZINESS Do you need a note to return to daycare/school/sports/work: No HPI HPI Comments History of Present Illness Details History of Present Illness - The patient is an 89-year-old female p resenting with cerumen removal and ongoing right ear sensitivity. - She had a right ear infection and comp leted antibiotics, including Amoxicillin and Erythromycin, over several weeks. - The right ear remains sensitive, sugge sting persistent infection despite prior treatment. - Has ENT referral but they cannot see h er until January. - denies fevers Physical Exam General: Cooperative, healthy appearing, comfortable, no acute distress and well developed Orientation: Patient oriented x3 Limitations: No limitations Head: Normal to inspection Ears: Right ear sensitive to touch, TM has purulent effusion, left TM has trace purulent effusion Nose: Normal external nose present Face and sinus: Normal facial exam Eyes: Appearance normal, both eyes and all related structures Neck: Normal visual inspection and Yes full ROM Respiratory: Normal respiratory effort and able to speak in complete sentences. 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 Son No problems noted. Social History Housing: Apartment Alcohol intake: never Patient Tobacco Use Status: Former Tobacco user e-Cigarette/Vaping Use: Never Used Second Hand Smoke Exposure: Yes service: No Current occupational status: retired Cognitive needs: Yes (walker) Hearing needs: No Vision needs: Yes (glasses) Review of Systems Const All systems reviewed & are unremarkable except as noted in HPI and below Physical Exam Vital Signs: Last Vital Signs BP 128/80 11/05/24 09:34 Office Procedures Cerumen Removal From which ear canal was the cerumen removed: right Removal: otoscope w/curette Notes: patient tolerated procedure well, no complications and ear canal clear [id number] Wax Removal by Spoon/Curette Assessment & Plan Assessment & Plan (1) Otitis media: Code(s): H66.90 - Otitis media, unspecified, unspecified ear Qualifiers: Otitis media type: suppurative Chronicity: acute Laterality: right Recurrence: recurrent Spontaneous tympanic membrane rupture: without spontaneous rupture Qualified Code(s): H66.004 - Acute suppurative otitis media without spontaneous rupture of ear drum, recurrent, right ear Plan: - right ear cerumen impaction was resolved during the visit successfully, but sensitivity persisted necessitating further antibiotic management with Augmentin as pt failed Amoxicillin. Advised 3 abx in a month and if she develops diarrhea to call us or PCP. Patient was informed and verbally consented to the use of an ambient scribe for clinic note documentation during this visit. Medications: New amoxicillin-pot clavulanate 875-125 mg 1 tab PO Q12H 20 tabs 0RF Coding Level of Care Code Est Pt Level 4 (04035) Diagnoses Recurrent acute suppurative otitis media of right ear without spontaneous rupture of tympanic membrane H66.004 Otitis media type: suppurative Chronicity: acute Laterality: right Recurrence: recurrent Spontaneous tympanic membrane rupture: without spontaneous rupture CPT Codes Office Procedure - CPT: 37971-Aqo Wax Removal by Spoon/Curette ([id number])
[2024-11-05 09:34] VITALS: BP 128/80
== END 2024-11-05 10:04 | disposition home or self-care (01) ==
PROVIDERS: PCP Internal Medicine; Visit Provider Physician Assistant
DX: H66.004 Acute suppurative otitis media without spontaneous rupture of ear drum, recurrent, right ear (principal); H61.21 Impacted cerumen, right ear

== ENCOUNTER → 2024-11-05 09:07 | Outpatient (BNVA) | payer MEDICARE, SELFPAY | PROVIDERS: PCP Internal Medicine; Visit Provider Physician Assistant | DX: H66.004 Acute suppurative otitis media without spontaneous rupture of ear drum, recurrent, right ear (principal); H61.21 Impacted cerumen, right ear | CPT/HCPCS: 69210; 99212 ==

== ENCOUNTER 2025-01-11 08:21 | Outpatient (AMB) | payer MEDICARE, SELFPAY ==
--- NOTE | 2025-01-11 08:32 | A.OFFPC_ITS ---
Vital Signs 01/11/25 08:34 Height 5 ft 3 in Weight 100 lb 4 oz BMI 17.8 BP 120/66 Blood Pressure Location Lt brachial Position Sitting Pulse 85 Pulse Source Pulse Oximeter Temp 97.3 F Temp Source Temporal Artery Scan Pulse Oximetry (%) 98 Oxygen Delivery Method Room Air Intake Visit Reasons: 6mth f/u Intake Note: Patient is here to follow up on HTN, CAD, HLD. 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 Behavioral Services Tech: Not Required per policy Accompanied by: Self / Same As Patient Allergies aspirin [Aspirin] Allergy (Mild, Verified 01/11/25 08:34) ACID REFLUX, gi upset ciprofloxacin [From CIPRO] Allergy (Unknown, Verified 01/11/25 08:34) RASH Sulfa (Sulfonamide Antibiotics) [SULFA (SULFONAMIDE ANTIBIOTICS)] Allergy (Unknown, Verified 01/11/25 08:34) DIZZINESS Medication List - Last Reconciled 01/11/25 by Owen Harris MD albuterol sulfate 90 mcg/actuation 2 puffs PO Q4H PRN aspirin (Ecotrin Low Strength) 81 mg PO DAILY atorvastatin 20 mg PO DAILY calcium carbonate-vitamin D3 600 mg-5 mcg (200 unit) (Calcium 600 + D(3)) caps PO DAILY docusate sodium 50 mg PO DAILY furosemide 40 mg PO DAILY levothyroxine 88 mcg PO DAILY losartan 50 mg PO DAILY metoprolol succinate ER 50 mg PO DAILY pantoprazole 40 mg PO DAILY vitamin E (dl, acetate) 400 units PO DAILY Tobacco use date assessed: 01/11/25 Fall risk assessment: No Falls in past year Last assessed Fall Risk: 01/11/25 Dental Screening Dental Screen Date: 01/11/25 Did you have a dental visit in the last 12 months?: No Did you have a dental problem in the last 6 months where you did not have access to dental care?: No Was dental information given to patient?: No HPI 6mth f/u HPI Details hyperlipidemia and hypothyroidism on rx; doing well; compliant [facility] Medical History Hyperlipidemia CAD (coronary artery disease) HTN (hypertension) (HFpEF) heart failure with preserved ejection fraction Aortic stenosis PAD (peripheral artery disease) Wound infection 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 Son No problems noted. Social History Housing: Apartment Alcohol intake: never Patient Tobacco Use Status: Former Tobacco user e-Cigarette/Vaping Use: Never Used Second Hand Smoke Exposure: Yes service: No Current occupational status: retired Cognitive needs: Yes (walker) Hearing needs: No Vision needs: Yes (glasses) Questionnaire PHQ-9 Over the last 2 weeks, how often have you been bothered by any of the following problems? 1. Little interest or pleasure in doing things: not at all 2. Feeling down, depressed, or hopeless: not at all 3. Trouble falling or staying asleep, or sleeping too much: not at all 4. Feeling tired or having little energy: not at all 5. Poor appetite or overeating: not at all 6. Feeling bad about yourself - or that you are a failure or have let yourself or your family down: not at all 7. Trouble concentrating on things, such as reading the newspaper or watching television: not at all 8. Moving or speaking so slowly that other people could have noticed. Or the opposite - being so fidgety or restless that you have been moving around a lot more than usual: not at all 9. Thoughts that you would be better off or of hurting yourself in some way: not at all Total score: 0 Depression Screening Interpretation: Negative Depression Screening Done: Yes Source: Developed by Drs. Abdulaziz Maldonado, Jacqui Jimenez, Juvenal Bustos and colleagues, with an educational josiane from [employer]. Thrive Questionnaire Date Thrive assessed: 01/11/25 I am a: Patient What is your living situation today?: I have a steady place to live Within the past 12 months, did the food you bought not last and you didn't have the money to get more?: Never true Within the past 12 months, did you worry whether your food would run out before you got money to buy more?: Never true Do you have trouble paying for medicines?: No Do you have trouble getting transportation to medical appointments?: No Do you have trouble paying your heating and electricity bill?: No Do you have trouble taking care of your child, family member or friend?: No Do you have trouble with day-to-day activities such as bathing, preparing meals, shopping, managing finances, etc.?: No Are you currently unemployed and looking for a job?: No Are you interested in more education?: No Please select the resources that you would like help with: None Currently or been in a relationship where the following occur: No concerns reported THRIVE Score: 0 AUDIT C Alcohol Use Questionnaire (AUDIT-C) 1. How often do you have a drink containing alcohol?: Never Total Score: 0 LORENZO-7 AMB Questionnaire LORENZO-7 Date LORENZO - 7 assessed: 01/11/25 Feeling nervous, anxious, or on edge: 0 = Not at all Not being able to stop or control worryin = Not at all Worrying too much about different things: 0 = Not at all Trouble relaxin = Not at all Being so restless that it is hard to sit still: 0 = Not at all Becoming easily annoyed or irritable: 0 = Not at all Feeling afraid as if something awful might happen: 0 = Not at all Total LORENZO-7 score (0-4 normal; 5-9 mild; 10-14 moderate; 15-21 severe): 0 Source: Developed by Drs. Abdulaziz Maldonado, Jacqui Jimenez, Juvenal Bustos and colleagues, with an educational josiane from [employer]. Review of Systems Const Denies chills, Denies headache(s) and Denies weight loss ENT Denies headache(s) Card Denies chest pain, Denies syncope, Denies irregular heart rhythm and Denies dyspnea Resp Denies chest congestion, Denies cough and Denies dyspnea GI Denies abdominal pain, Denies change in stool character, Denies nausea and Denies vomiting Musc Denies deformity and Denies joint swelling Neuro Denies syncope and Denies headache(s) Physical exam (Primary Care) Vital Signs: Last Vital Signs Temp 97.3 F 01/11/25 08:34 Pulse 85 01/11/25 08:34 BP 120/66 01/11/25 08:34 Pulse Ox 98 01/11/25 08:34 Oxygen Delivery Method Room Air 01/11/25 08:34 BMI result Body Mass Index 17.8 Tobacco/Smoking Status: Tobacco use Status Tobacco use date assessed 01/11/25 01/11/25 08:39 Patient Tobacco Use Status Former Tobacco user 01/11/25 08:32 e-Cigarette/Vaping Use Never Used 01/11/25 08:32 PHQ-9: PHQ-9 Score PHQ-9: Total score 0 01/11/25 08:39 Depression Screening Interpretation: Negative Thrive Assessment: Date of Thrive Assessment Date Thrive assessed 01/11/25 01/11/25 08:39 Currently or been in a relationship where the following occur: No concerns reported Const General: cooperative, comfortable, no acute distress and alert Neck Neck: Yes no lymphadenopathy Thyroid: Thyroid normal Resp Effort & Inspection: normal respiratory effort Auscultation: clear to auscultation bilaterally Percussion: percussion normal Cardio Jugular venous distension: no JVD Palpation: normal PMI Rate: regular rate Rhythm: regular rhythm Heart sounds: S1 normal heart sound present and S2 normal heart sound present GI Inspection: Yes normal to inspection Palpation (GI): No hepatosplenomegaly present Skin General skin exam: no rashes or lesions noted Extrem General: Yes no clubbing, cyanosis or edema Coding Level of Care Code Est Pt Level 3 (50946) Diagnoses Hypothyroidism E03.9 Hyperlipidemia E78.5 Assessment & Plan Assessment & Plan (1) Hypothyroidism: Code(s): E03.9 - Hypothyroidism, unspecified Category: Medical Plan: stable; same rx (2) Hyperlipidemia: Code(s): E78.5 - Hyperlipidemia, unspecified Category: Medical Plan: stable; same rx
[2025-01-11 08:34] VITALS: BP 120/66; PULSE 85; TEMP 36.3; O2SAT 98; BMI 17.8
--- OUTSIDE RECORDS SUMMARY | 2025-01-11 08:46 | XMS_ITS ---
Author Organization [facility] Care Team Providers Care Oven Unloader Name Role Phone Barrie Roldan Unavailable Unavailable Farzana Osborn Unavailable Unavailable Allergies and adverse reactions Code CodeSystem Substance Reaction Severity StartDate Concern Status 643310530 SNOMED CT Sulfa Antibiotics Nausea (code- 690279245, SNOMED CT) Moderate 06/20/2020 active 2551 RXNORM Ciprofloxacin Nausea (code- 805187441, SNOMED CT) Moderate 06/20/2020 active 1191 RXNORM Aspirin Nausea (code- 929926051, SNOMED CT) Moderate 06/20/2020 active Care Team Name Role Address Phone Organization Dates Barrie Roldan PCP [address], [address], [place] (Office): : [facility] 06/20/2020 - 07/28/2020 Farzana Osborn Attending Physician [address], [address], [place] (Office): [facility] 06/20/2020 - 07/28/2020 Immunizations Immunization Status Vaccine Details Vaccine Code CodeSystem Date Notes Influenza completed Influenza, split virus, trivalent, injectable, contains preservative 141 CVX created date: 06/24/2020 administere d date: 06/13/2019 TB 2 Step Mantoux Skin Test completed tuberculin skin test; unspecified formulation lotNumber: [id number] expiry: 03/28/2022 Mfg: PAR pharmaceutical Given 0.1 ml Left Forearm intradermally Step 1 of Multi-step with next step required 98 CVX created date: 07/01/2020 consent date: 07/01/2020 administere d date: 07/01/2020 TB 2 Step Mantoux Skin Test completed tuberculin skin test; unspecified formulation lotNumber: [id number] expiry: 03/28/2022 Mfg: PAR pharmaceical Given 0.1 ml Left Forearm intradermally Step 1 of Multi-step with next step required 98 CVX created date: 06/24/2020 consent date: 06/24/2020 administere d date: 06/24/2020 PCV13 (Pneumococcal Conjugate)Vaccine completed pneumococcal conjugate vaccine, 13 valent 133 CVX created date: 06/24/2020 administere d date: 09/09/2016 Mental Status Section Date Assessment Total Score Description 07/28/2020 BIMS 15 cognitively int act CAM 0 No delirium ind icated PHQ-9 00 06/25/2020 BIMS 15 cognitively int act CAM 0 No delirium ind icated PHQ-9 00 Problems Problem # Description Date of onset Resolved Date Code CodeSystem Concern Status 1 ACQUIRED ABSENCE OF UTERUS WITH REMAINING CERVICAL STUMP 06/24/[address] active 2 ACUTE EMBOLISM AND THROMBOSIS OF UNSPECIFIED DEEP VEINS OF UNSPECIFIED LOWER EXTREMITY 06/24/[address] active 3 ACUTE MYOCARDIAL INFARCTION, UNSPECIFIED 06/24/[address] active 4 ATHEROSCLEROSIS OF CORONARY ARTERY BYPASS GRAFT(S) WITHOUT ANGINA PECTORIS 06/24/[address] active 5 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 ANGINA PECTORIS 06/24/[id number] active 6 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 06/24/[address] active 7 ESSENTIAL (PRIMARY) HYPERTENSION 06/24/[address] active 8 GASTRO-ESOPHAGEAL REFLUX DISEASE WITHOUT ESOPHAGITIS 06/24/[address] active 9 HEART FAILURE, UNSPECIFIED 06/24/[address] active 10 HYPOTHYROIDISM, UNSPECIFIED 06/24/[address] active 11 OTHER SPECIFIED ARTHRITIS, UNSPECIFIED SITE 06/24/[address] active 12 PERIPHERAL VASCULAR ANGIOPLASTY STATUS 06/24/[address] active 13 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 06/24/[address] active 14 TRANSIENT CEREBRAL ISCHEMIC ATTACK, UNSPECIFIED 06/24/[address] active 15 UNSPECIFIED ASTHMA, UNCOMPLICATED 06/24/[address] active 16 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 06/20/[address] active 17 DIFFICULTY IN WALKING, NOT ELSEWHERE CLASSIFIED 06/20/[address] active 18 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 WITHOUT PERFORATION OR ABSCESS WITHOUT BLEEDING 06/20/[address] active 19 DYSPHAGIA, PHARYNGOESOPHAGEAL PHASE 06/20/[address] active 20 ENCOUNTER FOR SURGICAL AFTERCARE FOLLOWING SURGERY ON THE CIRCULATORY SYSTEM 06/20/[address] active 21 OTHER LACK OF COORDINATION 06/20/[address] active 22 OTHER MALAISE 06/20/[address] active 23 STRESS INCONTINENCE (FEMALE) (MALE) 06/20/[address] active 24 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 FAILURE 06/20/[address] active 25 UNSPECIFIED INJURY O F FEMORAL ARTERY, UNSPECIFIED LEG, SUBSEQUENT ENCOUNTER 06/20/[address] active 26 UNSPECIFIED OSTEOARTHRITIS, UNSPECIFIED SITE 06/20/[address] active 27 UNSPECIFIED STAPHYLOCOCCUS THE CAUSE OF DISEASES CLASSIFIED ELSEWHERE 06/20/[address] active 28 UNSTEADINESS ON FEET 06/20/[address] active Reason for Referral No Reasons for Referral Entered Social History Social History Observation Description Start Date End Date Code Code System Current Smoking Status Tobacco smoking consumption unknown 097011835 SNOMED CT Sex Assigned At Female 1935 08978-1 [facility] Vital Signs Code Code System Vitals Name Values and Units Timing Information 65981-3 LOINC Pain Level Value=0.0 07/28/2020 9279-1 LOINC Respiratory Rate Value=18.0 Units=/m in 07/28/2020 8310-5 [facility] Body Temperature Value=97.4 Units=?? F 07/28/2020 94968-6 [facility] O2 % BldC Oximetry Value=95.0 Units= % 07/28/2020 34522-4 [facility] Weight Zckno=111.2 Units=Lbs 8462-4 [facility] Blood Pressure-Diastolic Value=72 Un its=mmHg 07/27/2020 8480-6 [facility] Blood Pressure-Systolic Waasc=043 Un its=mmHg 07/27/2020 8867-4 [facility] Heart rate Value=72.0 Units=/min 8302-2 [facility] Height Value=58.0 Units=Inches 06/21/2020
== END 2025-01-11 08:58 | disposition home or self-care (01) ==
PROVIDERS: PCP Internal Medicine; Visit Provider Internal Medicine
DX: E03.9 Hypothyroidism, unspecified (principal); E78.5 Hyperlipidemia, unspecified

== ENCOUNTER → 2025-01-11 08:21 | Outpatient (BNVA) | payer MEDICARE, SELFPAY | PROVIDERS: PCP Internal Medicine; Visit Provider Internal Medicine | DX: E03.9 Hypothyroidism, unspecified (principal); E78.5 Hyperlipidemia, unspecified | CPT/HCPCS: 99212 ==

== ENCOUNTER 2025-04-11 08:18 | Outpatient (AMB) | payer MEDICARE, SELFPAY ==
[2025-04-11 08:24] VITALS: BP 110/70; PULSE 71; BMI 19.1
--- NOTE | 2025-04-11 08:24 | A.OFFVIS_ITS ---
Vital Signs 04/11/25 08:24 Height 5 ft 3 in Weight 108 lb 0.424 oz BMI 19.1 BP 110/70 Blood Pressure Location Lt brachial Position Sitting Pulse 71 Intake Visit Reasons: 1 yr f/up Intake Note: 1 year follow-up with ekg c/o sob and weakness Lead Setter Required: No Allergies aspirin [Aspirin] Allergy (Mild, Verified 01/11/25 08:34) ACID REFLUX, gi upset ciprofloxacin [From CIPRO] Allergy (Unknown, Verified 01/11/25 08:34) RASH Sulfa (Sulfonamide Antibiotics) [SULFA (SULFONAMIDE ANTIBIOTICS)] Allergy (Unknown, Verified 01/11/25 08:34) DIZZINESS Medication List - Last Reconciled 04/11/25 by Demetrio Fine MD albuterol sulfate 90 mcg/actuation 2 puffs PO Q4H PRN aspirin (Ecotrin Low Strength) 81 mg PO DAILY atorvastatin 20 mg PO DAILY calcium carbonate-vitamin D3 600 mg-5 mcg (200 unit) (Calcium 600 + D(3)) caps PO DAILY docusate sodium 50 mg PO DAILY furosemide 40 mg PO DAILY levothyroxine 88 mcg PO DAILY losartan 50 mg PO DAILY metoprolol succinate ER 50 mg PO DAILY pantoprazole 40 mg PO DAILY vitamin E (dl, acetate) 400 units PO DAILY HPI Comments Details: Lucio comes for follow-up. She has become frailer, says that she has poor appetite. She also has worsening shortness of breath. She also gets lightheaded when she overdoes something. She had nighttime occasionally has trouble breathing. However she has had no hospitalization. She denies any chest pain. Denies any full syncopal episode. Denies any prolonged palpitation irregular heartbeat. Has bilateral leg swelling. [facility] Medical History Hyperlipidemia CAD (coronary artery disease) HTN (hypertension) (HFpEF) heart failure with preserved ejection fraction Aortic stenosis PAD (peripheral artery disease) Wound infection 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 Son No problems noted. Social History Housing: Apartment Alcohol intake: never Patient Tobacco Use Status: Former Tobacco user e-Cigarette/Vaping Use: Never Used Second Hand Smoke Exposure: Yes service: No Current occupational status: retired Cognitive needs: Yes (walker) Hearing needs: No Vision needs: Yes (glasses) Review of Systems Const Denies chills, Reports fatigue, Denies fever(s), Denies frequent falls, Reports weakness, Denies weight gain and Denies weight loss ENT Denies dizziness Card Reports chest pain, Denies leg edema, Denies lightheadedness, Reports palpitations, Reports dyspnea, Reports dyspnea on exertion, Reports orthopnea and Denies other (loss of consciousness) Resp Denies cough, Reports dyspnea and Reports dyspnea on exertion GI Denies hematochezia and Denies change in stool character Musc Denies abnormal gait, Denies muscle weakness, Denies numbness, Denies radiating pain into limb and Denies tingling Neuro Denies abnormal gait, Denies dizziness, Denies frequent falls, Denies numbness, Denies tingling and Reports weakness Endo Reports fatigue and Reports palpitations Physical Exam Vital Signs: Last Vital Signs Pulse 71 04/11/25 08:24 BP 110/70 04/11/25 08:24 BMI result Body Mass Index 19.1 Const General: cooperative, comfortable, alert, awake and in distress mild and respiratory Nutritional Appearance: underweight and other (Frail elderly woman) Orientation/consciousness: patient oriented x3 Limitations: ambulation with walker Neck Neck: Yes trachea midline, Yes supple and Yes no JVD Resp Effort & Inspection: normal respiratory effort Auscultation: clear to auscultation bilaterally Cardio Jugular venous distension: no JVD Rate: regular rate Rhythm: regular rhythm Heart sounds: S1 normal heart sound present, S2 normal heart sound present (Absent) and Murmur heart sound present systolic late, decrescendo, crescendo, harsh and at the right sternal border GI Inspection: Yes distended Auscultation: normal bowel sounds Skin General skin exam: no rashes or lesions noted and ecchymosis Neuro General: patient oriented x3 and no focal motor deficits Extrem General: No clubbing, No cyanosis and Yes edema (2+) Psych Appearance: grossly normal Office Procedures EKG Details: EKG shows normal sinus rhythm nonspecific ST abnormality [id number], Complete Assessment & Plan Assessment & Plan (1) Aortic stenosis: Comment: Severe aortic stenosis Code(s): I35.0 - Nonrheumatic aortic (valve) stenosis Category: Medical Plan: Aortic stenosis progressive symptoms not having exertional lightheadedness as well as having progressive shortness of breath as well as heart failure symptoms. Eventual progressive nature of heart failure and possible that was discussed with her. She understands. She is ready. She currently has advanced directives of do not resuscitate do not intubate. We discussed about possibly having a hospice/palliative care consult and meanwhile treat her to keep her comfortable. She is agreeable. Will refer her to visiting nurses. He had a detailed discussion about the same. She understands the eventual outcome very well and he is psychologically ready for it. She continues and does not want any interventional therapy. (2) (HFpEF) heart failure with preserved ejection fraction: Code(s): I50.30 - Unspecified diastolic (congestive) heart failure Category: Medical Plan: Heart failure syndrome with clinically appears to have progressed with predominantly right heart failure syndrome with fluid overload. Advised to increase Lasix to 40 in the morning and 20 at noon time. If she has no adequate diuresis or improvement in congestion advised to increase from 40 and 40. Progressive nature of heart failure in the setting of severe uncorrected aortic stenosis were discussed. She understands. At this point time limited treatment options. She is understanding of this and wishes to pursue more comfort/palliative care. (3) CAD (coronary artery disease): Code(s): I25.10 - Atherosclerotic heart disease of [place] coronary artery without angina pectoris Category: Medical Plan: CAD with prior coronary artery bypass grafting. For now continue aspirin and statin therapy. Blood pressure is optimized. No symptoms related to from that perspective. No other change in treatment. Will follow up in 3 months time. Overall prognosis is grim. Currently than 30 minutes was spent in managing her care Orders: Referrals [facility]/Hospice Referral I35.0 - Nonrheumatic aortic (valve) stenosis Medications: Changed From furosemide 40 mg PO DAILY 90 tabs 3RF To furosemide Take 1 tab in am and 1/2 at noon 40 mg PO BID 200 tabs 3RF Coding Level of Care Code Est Pt Level 5 (13316) Complex EM visit Add On G2211 Diagnoses Aortic stenosis I35.0 (HFpEF) heart failure with preserved ejection fraction I50.30 CAD (coronary artery disease) I25.10 CPT Codes EKG - CPT: 91158-[id number], Complete ([id number])
== END 2025-04-11 08:50 | disposition home or self-care (01) ==
LOC: HO.HCS 08:19
PROVIDERS: PCP Internal Medicine; Visit Provider Internal Medicine Cardiovascular Disease
DX: I35.0 Nonrheumatic aortic (valve) stenosis (principal); I50.30 Unspecified diastolic (congestive) heart failure; I25.10 Atherosclerotic heart disease of native coronary artery without angina pectoris
CPT/HCPCS: 93010; 99215; G2211

== ENCOUNTER → 2025-04-11 08:18 | Outpatient (BNVA) | payer MEDICARE, SELFPAY | PROVIDERS: PCP Internal Medicine; Visit Provider Internal Medicine Cardiovascular Disease | DX: I35.0 Nonrheumatic aortic (valve) stenosis (principal); I11.0 Hypertensive heart disease with heart failure; I50.30 Unspecified diastolic (congestive) heart failure; I25.10 Atherosclerotic heart disease of native coronary artery without angina pectoris | CPT/HCPCS: 93005; 99212 ==

== ENCOUNTER 2025-04-12 09:39 | Outpatient (REF) | payer MEDICARE, SELFPAY ==
[2025-04-12 13:31] LABS: B Type Natriuretic Peptide 2511 pg/mL (<100)
[2025-04-12 13:59] LABS: Anion Gap 17 (12-20); Blood Urea Nitrogen 31 mg/dL (9-16); Calcium 9.5 mg/dL (8.4-10.2); Carbon Dioxide 24 mmol/L (22-29); Chloride 108 mmol/L (96-108); Estimated Glomerular Filt Rate 35; Glucose Random 101 mg/dL (60-115); Potassium 3.5 mmol/L (3.3-5.1); Sodium 145 mmol/L (135-145)
== END 2025-04-12 09:40 | disposition home or self-care (01) ==
LOC: HO.HMGCLDS 09:39
PROVIDERS: Visit Provider Internal Medicine Cardiovascular Disease
DX: I50.30 Unspecified diastolic (congestive) heart failure (principal); I51.7 Cardiomegaly; E03.9 Hypothyroidism, unspecified
CPT/HCPCS: 36415; 80048; 83880

== ENCOUNTER 2025-06-07 12:30 | Outpatient (AMB) | payer MEDICARE, SELFPAY ==
--- OUTSIDE RECORDS SUMMARY | 2025-06-07 12:32 | XMS_ITS | Patient Health Record ---
Author Organization [facility] Address [address] [place] [address] Care Team Providers Care Lace Inspector Name Role Phone Steven SMALLWOOD, Owen Primary Care Provider Abdulaziz Wheeler Unavailable [phone] Allergies Allergen (clinical drug ingredient) Drug/Non Drug Allergy documented on EMR Reaction Allergy Type Onset Date Status Sulfa Unknown Drug Allergy Active Darvon Unknown Drug Allergy Active aspirin Aspirin Unknown Drug Allergy Active Reason For Referral No Information Medications Medication SIG (Take, Route, Frequency, Duration) Notes Start Date End Date Status Pantoprazole Sodium 40 MG 1 tablet Orall y BID for 90 days 02/07/2015 Active Plan Of Treatment No Information Insurance Providers Payer Name Payer Address Payer Phone Subscriber Number Group Number Insured Name Patient Relationship to Insured Coverage Start Date Coverage End Date MEDICARE OF [place] [address] [place] [address] [id number] GAURAV SALGUERO Self - patient is the insured MED[employer] ATTN CLAIMS [address] [place] [address] [phone] [id number] GAURAV SALGUERO Self - patient is the insured Medical (General) History Medical History History ICD Code egd 11-26-2010 colonoscopy 08-29-2002 Montano's Esophagus esophageal reflux hypertension esophageal stricture Surgical History Surgery Date(Month/Year) hysterectom limited colon resection for diverticulit is
[2025-06-07 12:34] VITALS: BP 122/70; PULSE 52; TEMP 36.4; O2SAT 98; BMI 19.0
--- NOTE | 2025-06-07 12:34 | MHC.OFFWIV ---
Intake Vital Signs 06/07/25 12:34 Height 5 ft 3 in Weight 107 lb 2 oz BMI 19.0 BP 122/70 Blood Pressure Location Rt brachial Position Sitting Pulse 52 Pulse Source Pulse Oximeter Temp 97.6 F Temp Source Oral Pulse Oximetry (%) 98 Oxygen Delivery Method Room Air Intake Visit Reasons: EP-rt foot infection Patient Tobacco Use Status: Former Tobacco user Events Director Required: No Is last menstrual period known: No Post menopausal: Yes Patient : No Allergies aspirin (Aspirin) Allergy (Mild, Verified 06/07/25 12:39) ACID REFLUX, gi upset ciprofloxacin (From CIPRO) Allergy (Unknown, Verified 06/07/25 12:39) RASH Sulfa (Sulfonamide Antibiotics) (SULFA (SULFONAMIDE ANTIBIOTICS)) Allergy (Unknown, Verified 06/07/25 12:39) DIZZINESS Do you need a note to return to daycare/school/sports/work: No HPI HPI Comments History of Present Illness Details This is an 89-year-old female with past medical history significant for coronary artery disease, heart failure with preserved ejection fraction, aortic stenosis, essential hypertension, hyperlipidemia, peripheral arterial disease who presents with right foot swelling and erythema, which has been gradually worsening over the past 4 months. She states that her visiting nurse noticed some mild erythema about 4 months ago and has been advising her to be evaluated; however, the patient has not seeked medical care up until now. She states the erythema started at her toes and then spread to her foot. She reports chronic lower extremity edema and does not believe that the swelling is any worse. She has noticed some oozing and purulent drainage from some chronic wounds. Patient reports intermittent fevers and chills with a T-max of 101? F but her fevers resolve spontaneously without intervention. She denies any new or worsening calf swelling or tenderness to palpation. She denies new or worsening chest pain or shortness of breath. Her niece denies any changes in her mental status. She denies any recent travel or recent surgeries or recent immobilization. [facility] Medical History Hyperlipidemia CAD (coronary artery disease) HTN (hypertension) (HFpEF) heart failure with preserved ejection fraction Aortic stenosis PAD (peripheral artery disease) Wound infection 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 Son No problems noted. Social History Housing: Apartment Alcohol intake: never Patient Tobacco Use Status: Former Tobacco user e-Cigarette/Vaping Use: Never Used Second Hand Smoke Exposure: Yes service: No Current occupational status: retired Cognitive needs: Yes (walker) Hearing needs: No Vision needs: Yes (glasses) Review of Systems Const All systems reviewed & are unremarkable except as noted in HPI and below Reports no additional complaints Eyes Reports no additional complaints ENT Reports no additional complaints Card Reports no additional complaints Resp Reports no additional complaints GI Reports no additional complaints Reports no additional complaints Musc Reports no additional complaints Skin/Breast Reports system reviewed and no additional complaints, except as documented Neuro Reports no additional complaints Psych Reports no additional complaints Endo Reports no additional complaints Jose/Lymph Reports no additional complaints Aller/Immun Reports no additional complaints Physical Exam Vital Signs: Last Vital Signs Temp 97.6 F 06/07/25 12:34 Pulse 52 06/07/25 12:34 BP 122/70 06/07/25 12:34 Pulse Ox 98 06/07/25 12:34 Oxygen Delivery Method Room Air 06/07/25 12:34 BMI result Body Mass Index 19.0 Const Other: Vital signs reviewed. Constitutional: Non-toxic appearing. No acute distress. Well-developed and well-nourished. HEENT: Normocephalic and atraumatic. Skin: There is a small ulcer measuring approximately 1.5 cm x 1 cm to the medial aspect of the right oconnell without purulent drainage or surrounding erythema. There is shallow ulcerations to the dorsal aspect of the right 4th toe and the drsal aspect of the right foot with a small amount of purulent drainage. There is erythema of all 5 phalanges extending proximally to the forefoot with overlying warmth. Neck: Full and painless range of motion. No cervical lymphadenopathy. Cardio: Regular rate. 1+ pitting edema of bilateral lower extremities. No JVD. Weak DP/PT pulses. Pulmonary: No respiratory distress. No accessory muscle usage. Musculoskeletal: Normal range of motion in joints throughout the body. No deformity or other signs of injury. Neuro: Alert and oriented x4. Cranial nerves 2-12 grossly intact. No focal deficits appreciated. Psych: Normal mood and affect. Assessment & Plan Assessment & Plan (1) Cellulitis of right foot: Code(s): L03.115 - Cellulitis of right lower limb Plan 89-year-old female with past medical history significant for coronary artery disease, heart failure with preserved ejection fraction, aortic stenosis, essential hypertension, hyperlipidemia, peripheral arterial disease who presents with right foot swelling and erythema, which has been gradually worsening over the past 4 months. On physical examination, she has weak DP/PT pulses but acute occlusion unlikely given absence of gangrene, pallor, paresthesias, or severe pain. She has shallow ulcerations to the medial aspect of the right oconnell as well as the dorsal aspect of the right 4th toe and forefoot with surrounding erythema and purulent drainage. Patient's vital signs are reassuring without evidence for systemic infection at this time. History and physical most consistent with acute cellulitis versus infected arterial ulcers. She was given PO cephalexin 500 mg every 6 hours and PO doxycycline 100 mg twice daily x 10 days. 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 She was advised to follow-up with her vascular surgeon for further evaluation. She was advised to proceed directly to the emergency room if she were to develop persistent/worsening fevers, worsening erythema/streaking, mental status changes/lethargy, or gangrenous changes. Patient and her niece verbalized understanding and they are in agreement with the plan. Orders: Orders US venous duplex LE RT Today M79.89 - Other specified soft tissue disorders Medications: New cephalexin 500 mg PO QID 40 caps 0RF 10 days doxycycline hyclate 100 mg PO BID 20 caps 0RF 10 days Coding Level of Care Code Est Pt Level 4 (22480) Diagnoses Cellulitis of right foot L03.115
== END 2025-06-07 13:49 | disposition home or self-care (01) ==
PROVIDERS: PCP Internal Medicine; Visit Provider Physician Assistant Medical
DX: L03.115 Cellulitis of right lower limb (principal)

== ENCOUNTER 2025-06-07 13:30 | Outpatient (REF) | payer MEDICARE, SELFPAY ==
--- NOTE | ~2025-06-07 | US_ITS ---
EXAMINATION: US TRIPLEX LOWER EXTREMITY, RIGHT CLINICAL INFORMATION: Right lower extremity swelling COMPARISON: None available. TECHNIQUE: Color-flow triplex imaging with spectral analysis and compression Doppler were performed on the right lower extremity. FINDINGS: Respiratory variation, normal compression and augmented flow are noted throughout the right lower extremity. The visualized common femoral vein, superficial femoral vein, profunda femoral vein, popliteal vein and midcalf peroneal and posterior tibial venous segments show no evidence of deep venous thrombosis. Images labeled popliteal artery demonstrated an area with hyperechoic welch and posterior acoustic shadowing. No flow could be demonstrated within the vessel. US/US venous duplex LE RT IMPRESSION: No evidence of deep venous thrombosis involving the right lower extremity. No flow could be demonstrated in the right popliteal artery. However, the vessel appears densely calcified which limits evaluation. Occlusion is not ruled in or out. Electronically signed by: Reymundo Taveras MD 06/07/2025 02:03 PM EDT
== END 2025-06-07 13:31 | disposition home or self-care (01) ==
LOC: HO.HMGCX 13:30
PROVIDERS: PCP Internal Medicine; Visit Provider Physician Assistant Medical
DX: M79.89 Other specified soft tissue disorders (principal); L03.115 Cellulitis of right lower limb; Z87.891 Personal history of nicotine dependence
CPT/HCPCS: 93971; 99212

== ENCOUNTER → 2025-06-07 13:32 | Outpatient (BNV) | payer MEDICARE, SELFPAY | PROVIDERS: PCP Internal Medicine; Visit Provider Radiology Diagnostic Radiology | DX: R22.41 Localized swelling, mass and lump, right lower limb (principal) | CPT/HCPCS: 93971 ==

== ENCOUNTER 2025-06-21 09:39 | Outpatient (AMB) | payer MEDICARE, SELFPAY ==
--- OUTSIDE RECORDS SUMMARY | 2025-06-21 09:47 | XMS_ITS | Patient Health Record ---
Author Organization [facility] Address [address] [place] [address] Care Team Providers Care Automotive Parts Person Name Role Phone Steven SMALLWOOD, Owen Primary Care Provider Abdulaziz Wheeler Unavailable [phone] Allergies Allergen (clinical drug ingredient) Drug/Non Drug [...] Date MEDICARE OF [place] [address] [facility] [place] [address] [id number] GAURAV SALGUERO Self - patient is the insured [employer] ATTN CLAIMS [address] [place] [address] [id number] GAURAV SALGUERO Self - patient is the insured Medical (General) History Medical History History ICD Code egd 11-26-2010 colonoscopy 08-29-2002 Montano's Esophagus esophageal reflux hypertension esophageal stricture Surgical History Surgery Date(Month/Year) hysterectom limited colon resection for diverticulit is
[2025-06-21 10:06] VITALS: BP 100/60; PULSE 59; TEMP 36.3; BMI 18.4
--- NOTE | 2025-06-21 10:06 | MHC.OFFWIV ---
Intake Vital Signs 06/21/25 10:06 Height 5 ft 3 in Weight 104 lb BMI 18.4 BP 100/60 Blood Pressure Location Lt brachial Position Sitting Pulse 59 Pulse Source Pulse Oximeter Temp 97.4 F Temp Source Oral Intake Visit Reasons: EP-diarrhea, rt foot infection Intake Note: presents with very watery diarrhea after starting abx recently. experiences diarrhea with everything she eats and drinks. s/s for 2 days Patient Tobacco Use Status: Former Tobacco user Allergies aspirin (Aspirin) Allergy (Mild, Verified 06/21/25 10:09) ACID REFLUX, gi upset ciprofloxacin (From CIPRO) Allergy (Unknown, Verified 06/21/25 10:09) RASH Sulfa (Sulfonamide Antibiotics) (SULFA (SULFONAMIDE ANTIBIOTICS)) Allergy (Unknown, Verified 06/21/25 10:09) DIZZINESS Do you need a note to return to daycare/school/sports/work: No HPI HPI Comments History of Present Illness Details This is an 89-year-old female who was evaluated on June 07 and prescribed both Keflex and doxycycline for a period of 10 days for a right foot cellulitis. Patient states that her right foot cellulitis has significantly improved and she denies having any pain or redness in the right foot at this time. Patient states that she discontinued her antibiotic therapy after 7 days because she was having loose stools. Patient used Imodium which was helpful however her diarrhea returned 2 days ago. Patient reports having 2-3 episodes of diarrhea daily. She denies having any fevers, chills, dysuria or urinary frequency. [facility] Medical History Hyperlipidemia CAD (coronary artery disease) HTN (hypertension) (HFpEF) heart failure with preserved ejection fraction Aortic stenosis PAD (peripheral artery disease) Wound infection 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 Son No problems noted. Social History Housing: Apartment Alcohol intake: never Patient Tobacco Use Status: Former Tobacco user e-Cigarette/Vaping Use: Never Used Second Hand Smoke Exposure: Yes service: No Current occupational status: retired Cognitive needs: Yes (walker) Hearing needs: No Vision needs: Yes (glasses) Review of Systems Const All systems reviewed & are unremarkable except as noted in HPI and below Reports no additional complaints, Denies chills, Denies fatigue and Denies fever(s) GI Denies melena, Denies bloating, Denies hematochezia, Reports change in stool character, Denies excessive flatus, Reports diarrhea, Reports loose stools, Denies nausea and Denies vomiting Reports no additional complaints and Denies dysuria Musc Reports no additional complaints Skin/Breast Reports system reviewed and no additional complaints, except as documented Neuro Reports no additional complaints Endo Denies fatigue Physical Exam Vital Signs: Last Vital Signs Temp 97.4 F 06/21/25 10:06 Pulse 59 06/21/25 10:06 BP 100/60 06/21/25 10:06 BMI result Body Mass Index 18.4 Const Other: Patient is pleasant, well-appearing and afebrile. General: cooperative, healthy appearing, comfortable, no acute distress, well developed, alert, awake and Physically active; No acute distress or ill appearing Nutritional Appearance: average body habitus Orientation/consciousness: patient oriented x3 Limitations: no limitations GI Inspection: Yes normal to inspection and No distended Palpation (GI): Soft to palpation, nontender and no guarding Auscultation: normal bowel sounds General: Yes Bimanual renal exam normal bilaterally and Yes bladder normal to palpation Bimanual exam- vagina & uterus: bladder normal to palpation Skin Other: mild excoriation on the dorsal surface of the right 4th toe, however no overt erythema, warmth or tenderness to touch upon examination of the right foot and distal right lower extremity. Neuro General: patient oriented x3 Psych Appearance: grossly normal Mental Status: mental status grossly normal Insight: Good insight present (Psych) Judgement: Good judgement present (Psych) Assessment & Plan Assessment & Plan (1) Antibiotic-associated diarrhea: Comment: Patient is well-appearing and has no abdominal tenderness upon examination. Patient denies any dysuria or urinary frequency and urinalysis is deferred at this time. Patient will be discharged home with probiotic. Code(s): K52.1 - Toxic gastroenteritis and colitis; T36.95XA - Adverse effect of unspecified systemic antibiotic, initial encounter Plan: Take probiotic once daily for the next 10 days; follow up for any worsening symptoms or if cellulitis on right lower extremity recurs. Medications: New Lactobacillus rhamnosus GG (Culturelle) 1 cap PO DAILY 10 caps 0RF Coding Level of Care Code Est Pt Level 3 (06248) Diagnoses Antibiotic-associated diarrhea K52.1; T36.95XA Time Spent (min) 20
== END 2025-06-21 10:45 | disposition home or self-care (01) ==
PROVIDERS: PCP Internal Medicine; Visit Provider Physician Assistant
DX: K52.1 Toxic gastroenteritis and colitis (principal); T36.95XA Adverse effect of unspecified systemic antibiotic, initial encounter

== ENCOUNTER → 2025-06-21 09:39 | Outpatient (BNVA) | payer MEDICARE, SELFPAY | PROVIDERS: PCP Internal Medicine; Visit Provider Physician Assistant | DX: K52.1 Toxic gastroenteritis and colitis (principal); T36.95XA Adverse effect of unspecified systemic antibiotic, initial encounter | CPT/HCPCS: 99212 ==

== ENCOUNTER 2025-07-11 09:19 | Outpatient (AMB) | payer MEDICARE, SELFPAY ==
--- NOTE | 2025-07-11 09:22 | MHC.OFFVIS ---
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 Allergies aspirin (Aspirin) Allergy (Mild, Verified 06/21/25 10:09) ACID REFLUX, gi upset ciprofloxacin (From CIPRO) Allergy (Unknown, Verified 06/21/25 10:09) RASH Sulfa (Sulfonamide Antibiotics) (SULFA (SULFONAMIDE ANTIBIOTICS)) Allergy (Unknown, Verified 06/21/25 10:09) DIZZINESS Medication List - Last Reconciled 07/11/25 by Demetrio Fine MD albuterol sulfate 90 mcg/actuation 2 puffs PO Q4H PRN aspirin (Ecotrin Low Strength) 81 mg PO DAILY atorvastatin 20 mg PO DAILY calcium carbonate-vitamin D3 600 mg-5 mcg (200 unit) (Calcium 600 + D(3)) caps PO DAILY furosemide 40 mg PO ONCE Lactobacillus rhamnosus GG (Culturelle) 1 cap PO DAILY levothyroxine 88 mcg PO DAILY losartan 50 mg PO DAILY metoprolol succinate ER 50 mg PO DAILY pantoprazole 40 mg PO DAILY vitamin E (dl, acetate) 400 units PO DAILY HPI Comments Details: Lucio comes for follow-up urgently. She has recently been having increasing leg swelling. About few weeks ago she was told by 1 of her friends to cut down her diuretic regimen. Patient did that and subsequently started having increasing leg swelling. She is now back on 40 mg of Lasix but continues to have significant bilateral leg edema. She does get short of breath although denies any clear orthopnea, PND. No abdominal distension. She has weeping wounds. She also has discoloration of the distal toes in his right leg and are painful to touch. She says she is not able to get compression stockings on. 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 Son No problems noted. Social History Housing: Apartment Alcohol intake: never Patient Tobacco Use Status: Former Tobacco user e-Cigarette/Vaping Use: Never Used Second Hand Smoke Exposure: Yes service: No Current occupational status: retired Cognitive needs: Yes (walker) Hearing needs: No Vision needs: Yes (glasses) Review of Systems Const Denies chills, Denies fatigue, Denies fever(s), Denies frequent falls, Denies weakness, Denies weight gain and Denies weight loss ENT Denies dizziness Card Denies chest pain, Denies leg edema, Denies lightheadedness, Denies palpitations, Denies dyspnea, Denies dyspnea on exertion, Denies orthopnea and Denies other (loss of consciousness) Resp Denies cough, Denies dyspnea and Denies dyspnea on exertion GI Denies hematochezia and Denies change in stool character Musc Denies abnormal gait, Denies muscle weakness, Denies numbness, Denies radiating pain into limb and Denies tingling Neuro Denies abnormal gait, Denies dizziness, Denies frequent falls, Denies numbness, Denies tingling and Denies weakness Endo Denies fatigue and Denies palpitations Physical Exam Vital Signs: Last Vital Signs Pulse 72 07/11/25 09:24 BP 130/80 07/11/25 09:24 Const General: cooperative, comfortable, alert, awake and in distress mild and respiratory Nutritional Appearance: underweight and other (Frail elderly woman) Orientation/consciousness: patient oriented x3 Limitations: ambulation with walker Neck Neck: Yes trachea midline, Yes supple and Yes no JVD Resp Effort & Inspection: normal respiratory effort Auscultation: clear to auscultation bilaterally Cardio Jugular venous distension: no JVD Rate: regular rate Rhythm: regular rhythm Heart sounds: S1 normal heart sound present, S2 normal heart sound present (Absent) and Murmur heart sound present systolic late, decrescendo, crescendo, harsh and at the right sternal border GI Inspection: Yes distended Auscultation: normal bowel sounds Skin General skin exam: no rashes or lesions noted and ecchymosis Neuro General: patient oriented x3 and no focal motor deficits Extrem Other: Discoloration of distal toes on the right with wound General: No clubbing, No cyanosis and Yes edema (4+) Psych Appearance: grossly normal Assessment & Plan Assessment & Plan (1) (HFpEF) heart failure with preserved ejection fraction: Code(s): I50.30 - Unspecified diastolic (congestive) heart failure Category: Medical Plan: Heart failure with preserved ejection fraction predominantly right heart failure syndrome with significant edema. This most likely prevents proper absorption of oral diuretic regimen. She has advancing aortic stenosis and most likely congestive heart failure related to aortic stenosis. She continues to not want any interventional therapy. Progressive nature of heart failure in the setting of severe aortic stenosis were discussed. We discussed about treating this with oral diuretics but with bumetanide at a higher dose to try to help her with her congestion syndrome. Will obtain lab work today. If oral medications do not work she might require IV diuretics in the hospital and this was discussed with her and her son. We also discussed about mostly palliative care and she is agreeable to pursue that. Will refer to visiting nurses. Meanwhile management was discussed. She also seems to have significant discoloration of toes on the right which could represent vascular insufficiency. However management again would be conservative. Overall prognosis is poor. Will follow with her in 4 weeks to try to manage this as outpatient. Orders: Orders Basic Metabolic Panel Today I50.30 - Unspecified diastolic (congestive) heart failure B Type Natriuretic Peptide Today I50.30 - Unspecified diastolic (congestive) heart failure Referrals Palliative Care Referral I35.0 - Nonrheumatic aortic (valve) stenosis, I50.30 - Unspecified diastolic (congestive) heart failure Medications: New bumetanide Two tablets in a.m. and 1 tablet at noon 1 mg PO BID 120 tabs 2RF Coding Level of Care Code Est Pt Level 4 (23956) Complex EM visit Add On G2211 Diagnoses (HFpEF) heart failure with preserved ejection fraction I50.30
[2025-07-11 09:24] VITALS: BP 130/80; PULSE 72
--- OUTSIDE RECORDS SUMMARY | 2025-07-11 09:57 | XMS_ITS | Patient Health Record ---
Author Organization [facility] Address [address] [place] [address] Care Team Providers Care Slab Miller Operator Name Role Phone Steven SMALLWOOD, Owen Primary Care Provider Abdulaziz Wheeler Unavailable [phone] Allergies Allergen (clinical drug ingredient) Drug/Non Drug [...] Date MEDICARE OF [place] [address] [facility] [place] [address] [id number] GAURAV SALGUERO Self - patient is the insured [employer] ATT[employer] CLAIMS [address] [place] [address] [phone] [id number] GAURAV SALGUERO Self - patient is the insured Medical (General) History Medical History History ICD Code egd 11-26-2010 colonoscopy 08-29-2002 Montano's Esophagus esophageal reflux hypertension esophageal stricture Surgical History Surgery Date(Month/Year) hysterectom limited colon resection for diverticulit is
== END 2025-07-11 09:54 | disposition home or self-care (01) ==
LOC: HO.HCS 09:20
PROVIDERS: PCP Internal Medicine; Visit Provider Internal Medicine Cardiovascular Disease
DX: I50.30 Unspecified diastolic (congestive) heart failure (principal)
CPT/HCPCS: 99214; G2211

== ENCOUNTER 2025-07-11 09:19 | Outpatient (REF) | payer MEDICARE, SELFPAY ==
[2025-07-11 10:59] LABS: B Type Natriuretic Peptide 3149 pg/mL (<100)
[2025-07-11 11:05] LABS: Anion Gap 15 (12-20); Blood Urea Nitrogen 57 mg/dL (9-16); Calcium 9.2 mg/dL (8.4-10.2); Carbon Dioxide 23 mmol/L (22-29); Chloride 108 mmol/L (96-108); Estimated Glomerular Filt Rate 48; Potassium 3.6 mmol/L (3.3-5.1); Sodium 142 mmol/L (135-145)
== END 2025-07-11 09:20 | disposition home or self-care (01) ==
LOC: HO.LAB 09:19
PROVIDERS: PCP Internal Medicine; Visit Provider Internal Medicine Cardiovascular Disease
DX: I50.30 Unspecified diastolic (congestive) heart failure (principal); I50.810 Right heart failure, unspecified; I35.0 Nonrheumatic aortic (valve) stenosis; Z79.899 Other long term (current) drug therapy
CPT/HCPCS: 36415; 80048; 83880; 99212

== ENCOUNTER 2025-07-18 11:23 | Outpatient (AMB) | payer MEDICARE, SELFPAY ==
[2025-07-18 11:25] VITALS: BP 110/70
--- NOTE | 2025-07-18 11:25 | MHC.PC.OV ---
Vital Signs 07/18/25 11:25 Height 5 ft 3 in BMI Reason not done Patient refused/unable BP 110/70 Blood Pressure Location Lt brachial Position Sitting Pulse Source Pulse Oximeter Oxygen Delivery Method Room Air Intake Visit Reasons: EZIO HARRIS/6 MO FOLLOW UP Computer Tech Required: No Accompanied by: Self / Same As Patient Allergies aspirin (Aspirin) Allergy (Mild, Verified 07/18/25 11:43) ACID REFLUX, gi upset ciprofloxacin (From CIPRO) Allergy (Unknown, Verified 07/18/25 11:43) RASH Sulfa (Sulfonamide Antibiotics) (SULFA (SULFONAMIDE ANTIBIOTICS)) Allergy (Unknown, Verified 07/18/25 11:43) DIZZINESS Medication List - Last Reconciled 07/18/25 by Tk Nelson MD albuterol sulfate 90 mcg/actuation 2 puffs PO Q4H PRN aspirin (Ecotrin Low Strength) 81 mg PO DAILY atorvastatin 20 mg PO DAILY bumetanide 2 tabs in am, 1 tab at noon orally; calcium carbonate-vitamin D3 600 mg-5 mcg (200 unit) (Calcium 600 + D(3)) caps PO DAILY Lactobacillus rhamnosus GG (Culturelle) 1 cap PO DAILY levothyroxine 88 mcg PO DAILY losartan 50 mg PO DAILY metoprolol succinate ER 50 mg PO DAILY pantoprazole 40 mg PO DAILY vitamin E (dl, acetate) 400 units PO DAILY Tobacco use date assessed: 07/18/25 Fall risk assessment: No Falls in past year Last assessed Fall Risk: 07/18/25 Dental Screening Dental Screen Date: 07/18/25 Did you have a dental visit in the last 12 months?: No Did you have a dental problem in the last 6 months where you did not have access to dental care?: No Was dental information given to patient?: No HPI EZIO HARRIS/6 MO FOLLOW UP HPI Details Patient comes in today for her follow up visit - is transferring over from Dr. Harris, who retired from the practice a few months ago Patient states that she is presently still having some drainage/weeping from some superficial wounds on both of her lower legs She presented to the walk-in clinic in [place] last month for lower leg swelling and weeping and was started on Abx for cellulitis of the legs She ended up with some Abx-induced diarrhea and was advised to take some probiotics, which she states gradually helped with her symptoms She was seen by cardiology for follow up last week and was advised palliative care since she continues to decline interventional Tx for her severe aortic valve stenosis She is currently on oral diuretics but they do not seem to be helping much with her edema and weeping wounds Patient also adds that she would often experience increased pain in her legs at night lately and she would have a hard time getting any sleep She has tried taking OTC Tylenol a few times with little relief and is wondering if there is anything stronger that she can safely take but she does not want anything as strong as the opioids She denies any headaches or dizziness Denies any exertional chest pains but has significant CHRISTIANSEN No nausea/vomiting, no abdominal pain and states that her previous diarrhea (after she took her Rx Abx) are almost resolved now [facility] Medical History (Updated 07/18/25 @ 13:18 by Tk Nelson MD) Essential hypertension Acquired hypothyroidism Hyperlipidemia CAD (coronary artery disease) HTN (hypertension) (HFpEF) heart failure with preserved ejection fraction Aortic stenosis PAD (peripheral artery disease) Wound infection 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 Son No problems noted. Social History Housing: Apartment Alcohol intake: never Patient Tobacco Use Status: Former Tobacco user e-Cigarette/Vaping Use: Never Used Second Hand Smoke Exposure: Yes service: No Current occupational status: retired Cognitive needs: Yes (walker) Hearing needs: No Vision needs: Yes (glasses) Questionnaire PHQ-9 Over the last 2 weeks, how often have you been bothered by any of the following problems? 1. Little interest or pleasure in doing things: not at all 2. Feeling down, depressed, or hopeless: not at all 3. Trouble falling or staying asleep, or sleeping too much: more than half the days 4. Feeling tired or having little energy: more than half the days 5. Poor appetite or overeating: several days 6. Feeling bad about yourself - or that you are a failure or have let yourself or your family down: not at all 7. Trouble concentrating on things, such as reading the newspaper or watching television: not at all 8. Moving or speaking so slowly that other people could have noticed. Or the opposite - being so fidgety or restless that you have been moving around a lot more than usual: not at all 9. Thoughts that you would be better off or of hurting yourself in some way: not at all Total score: 5 Depression Screening Interpretation: Positive Depression Screening Follow-up: Follow-up Visit Requested Depression Screening Done: Yes 48534 - PHQ-9 Billing: Yes Source: Developed by Drs. Abdulaziz Maldonado, Jacqui Jimenez, Juvenal Bustos and colleagues, with an educational josiane from [employer]. Thrive Questionnaire Date Thrive assessed: 07/18/25 I am a: Patient What is your living situation today?: I have a steady place to live Within the past 12 months, did the food you bought not last and you didn't have the money to get more?: Never true Within the past 12 months, did you worry whether your food would run out before you got money to buy more?: Never true Do you have trouble paying for medicines?: No Do you have trouble getting transportation to medical appointments?: No Do you have trouble paying your heating and electricity bill?: No Do you have trouble taking care of your child, family member or friend?: No Do you have trouble with day-to-day activities such as bathing, preparing meals, shopping, managing finances, etc.?: No Are you currently unemployed and looking for a job?: No Are you interested in more education?: No Please select the resources that you would like help with: None Currently or been in a relationship where the following occur: No concerns reported THRIVE Score: 0 AUDIT C Alcohol Use Questionnaire (AUDIT-C) 1. How often do you have a drink containing alcohol?: Never 3. How often do you have six or more drinks on one occasion?: Never Total Score: 0 Score Reviewed/Action Taken: Yes LORENZO-7 AMB Questionnaire LORENZO-7 Date LORENZO - 7 assessed: 07/18/25 Feeling nervous, anxious, or on edge: 0 = Not at all Not being able to stop or control worryin = Not at all Worrying too much about different things: 0 = Not at all Trouble relaxin = Not at all Being so restless that it is hard to sit still: 0 = Not at all Becoming easily annoyed or irritable: 0 = Not at all Feeling afraid as if something awful might happen: 0 = Not at all Total LORENZO-7 score (0-4 normal; 5-9 mild; 10-14 moderate; 15-21 severe): 0 Source: Developed by Drs. Abdulaziz Maldonado, Jacqui Jimenez, Juvenal Bustos and colleagues, with an educational josiane from [employer]. Review of Systems Const Denies chills, Reports fatigue, Denies fever(s) and Denies headache(s) ENT Denies dysphagia, Denies dizziness, Denies otalgia, Denies headache(s), Denies neck pain, Denies odynophagia and Denies sore throat Card Denies chest pain, Denies palpitations and Reports dyspnea on exertion Resp Denies chest congestion, Denies cough, Reports dyspnea on exertion and Denies wheezing GI Denies abdominal pain, Denies constipation, Denies dysphagia, Denies heartburn, Denies diarrhea, Denies nausea, Denies odynophagia and Denies vomiting Denies difficulty voiding and Denies dysuria Musc Details: increased pain over both lower legs, especially at night Denies back pain and Denies neck pain Skin/Breast Details: (+) multiple superficial wounds over both lower legs, with clear fluid weping from some of the wounds Denies rash Neuro Denies dizziness and Denies headache(s) Endo Reports fatigue and Denies palpitations Aller/Immun Denies wheezing Physical exam (Primary Care) Vital Signs: Last Vital Signs BP 110/70 07/18/25 11:25 Oxygen Delivery Method Room Air 07/18/25 11:25 Tobacco/Smoking Status: Tobacco use Status Tobacco use date assessed 07/18/25 07/18/25 11:34 Patient Tobacco Use Status Former Tobacco user 07/18/25 11:34 e-Cigarette/Vaping Use Never Used 07/18/25 11:34 PHQ-9: PHQ-9 Score PHQ-9: Total score 5 07/18/25 11:34 Depression Screening Interpretation: Positive Depression Screening Follow-up: Follow-up Visit Requested Thrive Assessment: Date of Thrive Assessment Date Thrive assessed 07/18/25 07/18/25 11:34 Currently or been in a relationship where the following occur: No concerns reported Const General: no acute distress and alert HENMT Ears: TM's normal bilaterally and EAC's normal Throat: Yes posterior oropharynx normal and Yes tonsils normal (no TP congestion) Neck Neck: Yes supple and No lymphadenopathy Thyroid: Thyroid normal Resp Auscultation: clear to auscultation bilaterally, no rales and no wheezes Cardio Rate: regular rate Rhythm: regular rhythm Heart sounds: Murmur heart sound present systolic holo, with radiation to the carotids and at the right sternal border GI Palpation (GI): Soft to palpation and nontender Auscultation: normal bowel sounds General: Yes no CVA tenderness Back/Spine/Pelvis Back: no CVA tenderness Skin Other: (+) erythema over both lower legs, with multiple superficial wounds and clear fluid weeping from some of the wounds Extrem General: Yes pedal edema (2+, bilaterally) Results Reviewed Results Reviewed: Laboratory Tests 07/11/25 10:13 Sodium 142 Potassium 3.6 Creatinine 1.08 Estimated GFR 48 Random Glucose 100 Calcium 9.2 B-Natriuretic Peptide 3149 H Coding Level of Care Code Est Pt Level 4 (44329) Complex EM visit Add On G2211 Diagnoses Chronic heart failure with preserved ejection fraction (HFpEF) I50.32 Heart failure chronicity: chronic Nonrheumatic aortic valve stenosis I35.0 Cardiac valve disease etiology: nonrheumatic Bilateral lower extremity edema R60.0 Coronary artery disease involving three affiliated coronary artery of three affiliated heart without angina pectoris I25.10 Coronary Disease-Associated Artery/Lesion type: three affiliated artery Three Affiliated vs. transplanted heart: three affiliated heart Associated angina: without angina Pure hypercholesterolemia E78.00 Hyperlipidemia type: pure hypercholesterolemia Acquired hypothyroidism E03.9 Essential hypertension I10 Gastroesophageal reflux disease without esophagitis K21.9 Esophagitis presence: without esophagitis Additional Codes PHQ-9 - 65063 - PHQ-9 Billing: Yes ([id number]) Assessment & Plan Assessment & Plan (1) (HFpEF) heart failure with preserved ejection fraction: Code(s): I50.30 - Unspecified diastolic (congestive) heart failure Category: Medical Qualifiers: Heart failure chronicity: chronic Qualified Code(s): I50.32 - Chronic diastolic (congestive) heart failure Plan: Patient currently presents with symptoms consistent with right-sided heart failure, including SOB/CHRISTIANSEN, increased fatigue and swelling of her lower extremities (with fluid weeping from the wounds on her legs) Her BNP was at 3149 when checked last week Continue Bumetanide 1 mg 2 tablets in AM and 1 tablet at noon daily Per cardiology, if oral diuretics do not help much, she may require IV diuretics Echocardiogram last done on 07/15/2023 revealed normal LVEF at 60 to 65%, with moderate LVH and at least grade 2 diastolic dysfunction; severely dilated left atrium, paradoxical low-flow severe aortic stenosis with mean gradient of 28 mm Hg, normal RV systolic pressure, with no evidence of pulmonary hypertension and no gross pericardial effusion (2) Aortic stenosis: Comment: Severe aortic stenosis Code(s): I35.0 - Nonrheumatic aortic (valve) stenosis Category: Medical Qualifiers: Cardiac valve disease etiology: nonrheumatic Qualified Code(s): I35.0 - Nonrheumatic aortic (valve) stenosis Plan: Patient has severe aortic stenosis with symptoms now of right-sided heart failure and was resistant to the idea of any interventional Tx previously but after a lengthy discussion with her about the possibility of the minimally invasive TAVR, she is now open to considering this She states that she will think about this some more and has been advised to reach out to cardiology to get this set in motion as soon as she decides to go ahead with a TAVR In the meantime, she has been referred to palliative medicine and her son states that they have already reached out to them and are currently getting some recommendations in place Follow up with cardiology as scheduled (3) Bilateral lower extremity edema: Code(s): R60.0 - Localized edema Category: Medical Plan: Patient states that she continues to have swelling of both lower legs and the superficial wounds on her legs are still weeping clear fluids often She was treated with oral Abx last month for cellulitis of the lower extremities when she presented to the walk-in clinic with increased symptoms She is unable to wear her compression stockings because of increased pain over her lower legs and states that the pain in her legs can become unbearable at night and even Tylenol does not provide her with any relief Have advised patient to continue to keep her legs elevated as often as she can Continue with Bumetanide 1 mg 2 tablets in AM and 1 tablet at noon daily Cardiology has advised that if oral diuretics do not help, she may require some IV diuretics on a PRN basis Will try starting patient on some Tramadol 50 mg to take only at bedtime PRN for increased pain (4) CAD (coronary artery disease): Code(s): I25.10 - Atherosclerotic heart disease of three affiliated coronary artery without angina pectoris Category: Medical Qualifiers: Coronary Disease-Associated Artery/Lesion type: three affiliated artery Three Affiliated vs. transplanted heart: three affiliated heart Associated angina: without angina Qualified Code(s): I25.10 - Atherosclerotic heart disease of three affiliated coronary artery without angina pectoris Plan: S/P CABD x2 - ALLEN to LAD and SVG to circumflex, in June 2013 Continue Aspirin 81 mg QD and Metoprolol ER 50 mg QD Follow up with cardiology as scheduled (5) Hyperlipidemia: Code(s): E78.5 - Hyperlipidemia, unspecified Category: Medical Qualifiers: Hyperlipidemia type: pure hypercholesterolemia Qualified Code(s): E78.00 - Pure hypercholesterolemia, unspecified Plan: Patient has not had her cholesterol levels checked since January 2024 - her LDL cholesterol at the time was at goal at 63 mg/dl Reinforced low cholesterol diet Continue Atorvastatin 20 mg QD (6) Acquired hypothyroidism: Code(s): E03.9 - Hypothyroidism, unspecified Category: Medical Plan: Her TSH also has not been checked since January 2024 - was normal at the time Will have patient recheck some labs, including her TFTs, CRISTIAN for follow up Continue Levothyroxine 88 mcg QD for now (7) Essential hypertension: Code(s): I10 - Essential (primary) hypertension Category: Medical Plan: Reinforced low sodium diet - goal is systolic BP of at least 120 to 130 mm or less Continue Losartan 50 mg QD and Metoprolol ER 50 mg QD (8) GERD (gastroesophageal reflux disease): Code(s): K21.9 - Gastro-esophageal reflux disease without esophagitis Category: Medical Qualifiers: Esophagitis presence: without esophagitis Qualified Code(s): K21.9 - Gastro-esophageal reflux disease without esophagitis Plan: Dietary restrictions reinforced - patient states that she has not really been eating much lately as she has not been feeling well Continue Pantoprazole 40 mg QD Plan Follow up in 2 months Orders: Orders Complete Blood Count Auto Diff Today D64.9 - Anemia, unspecified Thyroid Stimulating Hormone Today E03.9 - Hypothyroidism, unspecified Magnesium Today E83.42 - Hypomagnesemia Vitamin D 25-OH Total Today E55.9 - Vitamin D deficiency, unspecified Vitamin B12 and Folate Today E53.8 - Deficiency of other specified B group vitamins Free T4 (Free Thyroxine) Today E03.9 - Hypothyroidism, unspecified Liver Panel Today R79.89 - Other specified abnormal findings of blood chemistry Medications: New tramadol 50 mg PO BEDTIME PRN 30 tabs 0RF severe pain 30 days
--- OUTSIDE RECORDS SUMMARY | 2025-07-18 15:42 | XMS_ITS | Patient Health Record ---
Author Organization [facility] Address [address] [place] [address] Care Team Providers Care Sales And Events Coordinator Name Role Phone Steven SMALLWOOD, Owen Primary Care Provider Abdulaziz Wheeler Unavailable [phone] Allergies Allergen (clinical drug ingredient) Drug/Non Drug [...] Date MEDICARE OF [place] [address] [place] [address] [phone] [id number] GAURAV SALGUERO Self - patient is the insured [employer] ATTN CLAIMS [address] [place] [phone] [id number] GAURAV SALGUERO Self - patient is the insured Medical (General) History Medical History History ICD Code egd 11-26-2010 colonoscopy 08-29-2002 Montano's Esophagus esophageal reflux hypertension esophageal stricture Surgical History Surgery Date(Month/Year) hysterectom limited colon resection for diverticulit is
== END 2025-07-18 11:58 | disposition home or self-care (01) ==
LOC: HO.HMCH 11:23
PROVIDERS: PCP Internal Medicine; Visit Provider Internal Medicine
DX: I50.32 Chronic diastolic (congestive) heart failure (principal); I35.0 Nonrheumatic aortic (valve) stenosis; R60.0 Localized edema; I25.10 Atherosclerotic heart disease of native coronary artery without angina pectoris; E78.00 Pure hypercholesterolemia, unspecified; E03.9 Hypothyroidism, unspecified; I10 Essential (primary) hypertension; K21.9 Gastro-esophageal reflux disease without esophagitis

== ENCOUNTER → 2025-07-18 11:23 | Outpatient (BNVA) | payer MEDICARE, SELFPAY | PROVIDERS: PCP Internal Medicine; Visit Provider Internal Medicine | DX: I12.9 Hypertensive chronic kidney disease with stage 1 through stage 4 chronic kidney disease, or unspecified chronic kidney disease (principal); I50.32 Chronic diastolic (congestive) heart failure; I35.0 Nonrheumatic aortic (valve) stenosis; R60.0 Localized edema; I25.10 Atherosclerotic heart disease of native coronary artery without angina pectoris; E78.00 Pure hypercholesterolemia, unspecified; E03.9 Hypothyroidism, unspecified; K21.9 Gastro-esophageal reflux disease without esophagitis | CPT/HCPCS: 96127; 99212 ==

== ENCOUNTER 2025-07-31 10:02 | Inpatient (IN) | payer MEDICARE, SELFPAY ==
--- NOTE | 2025-07-31 | ECG_ITS ---
Test Reason : WEAKNESS Blood Pressure : */* mmHG Vent. Rate : 78 BPM Atrial Rate : 78 BPM P-R Int : 148 ms QRS Dur : 128 ms QT Int : 404 ms P-R-T Axes : 69 -37 79 degrees QTcB Int : 460 ms Normal sinus rhythm Left axis deviation Left ventricular hypertrophy with QRS widening and repolarization abnormality ( R in aVL , Geronimo product , Romhilt-Dodge ) Abnormal ECG When compared with ECG of 10-Jun-2020 16:02, Premature supraventricular complexes are no longer Present Referred By: Generic ED Physician Electronically Signed By: Paul Sharif
--- NOTE | ~2025-07-31 | XR_ITS ---
EXAMINATION: XR FOOT, RIGHT CLINICAL INFORMATION: osteo eval, necrosis COMPARISON: None available. TECHNIQUE: AP, lateral, and oblique views of the right foot. FINDINGS: There is severe diffuse osteopenia, limiting sensitivity of the exam. No fracture, dislocation, or suspicious bone lesion. No region of permeative bone changes to suggest radiographic changes of osteomyelitis. Joint spaces are largely preserved. There are hammertoe deformities. There is a mild pes planus. There is a moderate-sized plantar calcaneal spur. Soft tissues demonstrate diffuse vascular calcifications. There is notable soft tissue swelling of the dorsum of the forefoot. XR/XR foot RT min 3V IMPRESSION: 1. Soft tissue swelling dorsum of the forefoot. Vascular calcifications in the soft tissues. 2. No radiographic evidence of osteomyelitis. No acute bony abnormality. 3. Diffuse osteopenia. Electronically signed by: Vu Loomis MD 07/31/2025 11:33 AM EDT
--- NOTE | ~2025-07-31 | MR_ITS ---
EXAMINATION: MR FOOT WITHOUT AND WITH CONTRAST, RIGHT CLINICAL INFORMATION: Toes necrosis COMPARISON: None available. TECHNIQUE: MRI of the right foot was performed before intravenous administration contrast FINDINGS: Extremely limited study. While localizers were being performed, the patient elected to terminate the study. MR/MR foot RT wo/w con IMPRESSION: Nondiagnostic examination. Patient elected to terminate the study before any meaningful sequences could be performed. Electronically signed by: Reymundo Taveras MD 08/01/2025 04:27 PM EDT
--- NOTE | ~2025-07-31 | XR_ITS ---
EXAMINATION: XR FOOT, LEFT CLINICAL INFORMATION: osteo eval, necrosis COMPARISON: None available. TECHNIQUE: AP, lateral, and oblique views of the left foot. FINDINGS: There is severe diffuse osteopenia, limiting sensitivity of the exam. No fracture, dislocation, or suspicious bone lesion. No region of permeative bone changes to suggest radiographic changes of osteomyelitis. Joint spaces are largely preserved. There are hammertoe deformities. There is a mild pes planus. There is a small-sized plantar calcaneal spur. Soft tissues demonstrate diffuse vascular calcifications. There is notable soft tissue swelling of the dorsum of the forefoot. XR/XR foot LT min 3V IMPRESSION: 1. Soft tissue swelling dorsum of the forefoot. Vascular calcifications in the soft tissues. 2. No radiographic evidence of osteomyelitis. No acute bony abnormality. 3. Diffuse osteopenia. Electronically signed by: Vu Loomis MD 07/31/2025 11:35 AM EDT
--- NOTE | ~2025-07-31 | US_ITS ---
EXAMINATION: Noninvasive assessment of the bilateral lower extremities with ARTERIAL DUPLEX, ANKLE BRACHIAL INDICES (ABIs), and PULSE VOLUME RECORDINGS (PVRs). CLINICAL INFORMATION: Nonhealing right foot. TECHNIQUE: Duplex Doppler techniques with waveform analysis and measurement of velocities in the bilateral common femoral, profunda femoris, superficial femoral, popliteal and tibial arteries were performed. Additionally, ankle pulse volume recordings, ankle pressure measurements and ankle brachial indices were obtained of the lower extremity arterial system bilaterally. The study was performed only at rest. COMPARISON: September 23, 2020 FINDINGS: DIRECT DUPLEX DOPPLER FINDINGS: RIGHT LEG: Common femoral artery: 112 cm/s, phasicity: Triphasic. Spectral broadening. Profunda femoris artery: 90 cm/s, phasicity: Monophasic. Spectral broadening. Superficial femoral artery (proximal): 46 cm/s, phasicity: Monophasic. Spectral broadening. Superficial femoral artery (mid): 29 cm/s, phasicity: Monophasic. Spectral broadening. Superficial femoral artery (distal): No color Doppler flow. Popliteal artery, distal segment: 32 cm/s, phasicity: Monophasic. Spectral broadening. Posterior tibial artery: 50 cm/s, phasicity: Monophasic. Spectral broadening. Peroneal artery: 35 cm/s, phasicity: Monophasic. Spectral broadening. Anterior tibial artery: 31 cm/s, phasicity: Monophasic. Spectral broadening. Dorsalis pedis artery: 91 cm/s, phasicity:Monophasic. Spectral broadening. LEFT LEG: Common femoral artery: 54 cm/s, phasicity: Monophasic. Spectral broadening. Profunda femoris artery: 37 cm/s, phasicity: Monophasic. Spectral broadening. Superficial femoral artery (proximal): 49 cm/s, phasicity: Monophasic. Spectral broadening. Superficial femoral artery (mid): 87 cm/s, phasicity: Monophasic. Spectral broadening. Superficial femoral artery (distal): 67 cm/s, phasicity: Monophasic. Spectral broadening. Popliteal artery: 96 cm/s, phasicity: Monophasic. Spectral broadening. Posterior tibial artery: 46 cm/s, phasicity: Monophasic. Spectral broadening. Peroneal artery: 87 cm/s. Monophasic. Spectral broadening. Anterior tibial artery: 55 cm/s, phasicity: Monophasic. Spectral broadening. Dorsalis pedis artery: No color Doppler flow. 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 Occluded distal superficial femoral artery. 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 Occluded posterior tibialis artery and likely dorsalis pedis artery. SIMONE Reference: - >1.4 = calcified vessels - 0.9 - 1.4 = normal - no significant arterial disease - 0.7 - 0.89 = mild peripheral arterial disease - 0.51 - 0.69 = moderate peripheral arterial disease - 0.50 = severe peripheral arterial disease - < .30 = critical arterial disease Electronically signed by: Chris Cunha MD 08/02/2025 07:12 AM EDT
[2025-07-31 10:16] VITALS: BP 104/62; PULSE 91; O2SAT 94; BMI 17.6
--- NOTE | 2025-07-31 10:40 | ED_ITS ---
HPI - General Adult General Chief complaint: Extremity Injury, Lower Stated complaint: MCKENNA FOOT PAIN/LEAKAGE W/NECROTIC TOES PER EMS Time Seen by Provider: 07/31/25 10:39 Source: patient and EMS Mode of arrival: EMS Limitations: no limitations History of Present Illness ED Provider: Krystin Shirley PA-C HPI narrative: Patient is an 89 year old assigned female at with a history of PAD, HTN, GERD, LVH, hypothyroidism, CAD, HLD, HFpEF, and aortic stenosis presenting to the emergency department today with bilateral lower leg and feet infection / necrosis. Patient states that she had a recent infection in her feet / lower legs that she was on antibiotics for and it has progressed. Patient denies any other complaints at this time. Related Data Home Medications ?Medication ?Instructions ?Recorded ?Confirmed calcium 600 mg (as cap PO DAILY 08/06/20 carbonate)-vitamin D3 5 mcg (200 unit) capsule (Calcium 600 + D(3)) vitamin E (dl, acetate) 180 mg 400 unit PO DAILY 08/0607/18/25 (400 unit) capsule bumetanide 1 mg tablet 1 mg PO DAILY@1200 07/31/25 07/31/25 bumetanide 1 mg tablet 2 mg PO DAILY 07/31/25 Previous Rx's ?Medication ?Instructions ?Recorded aspirin 81 mg tablet,delayed 81 mg PO DAILY #30 tabs 1 12/22/19 release (Ecotrin Low Strength) albuterol sulfate 90 mcg/actuation 2 puff PO Q4H PRN b ronchospasm 05/20/25 aerosol inhaler #8.5 grams atorvastatin 20 mg tablet 20 mg PO DAILY #90 tabs 05/08 07/01 metoprolol succinate 50 mg 50 mg PO DAILY #90 tabs tablet,extended release 24 hr levothyroxine 88 mcg tablet 88 mcg PO DAILY #90 tabs 0 06/04/25 losartan 50 mg tablet 50 mg PO DAILY #90 tabs 05/08 08/01 pantoprazole 40 mg tablet,delayed 40 mg PO DAILY #90 t abs 06/04/25 release Lactobacillus rhamnosus GG 10 1 cap PO DAILY #10 caps 06/21/25 billion cell capsule (Culturelle) tramadol 50 mg tablet 50 mg PO BEDTIME PRN severe pain 07/18/25 30 days #30 tabs Allergies Allergy/AdvReac Type Severity Reaction Status Date / Time aspirin (Aspirin) Allergy Mild ACID Verified 07/31/25 10:18 REFLUX, gi upset ciprofloxacin (From CIPRO) Allergy Unknown RASH Verified 07/31/25 10:18 Sulfa (Sulfonamide Allergy Unknown DIZZINESS Verified 07/31/25 10:18 Antibiotics) (SULFA (SULFONAMIDE ANTIBIOTICS)) Review of Systems 2 Constitutional: Constitutional: Reports as per HPI Eyes: Eyes: Reports as per HPI ENT: Reports as per HPI Cardiovascular: Cardiovascular: Reports as per HPI Respiratory: Respiratory: Reports as per HPI Gastrointestinal: Gastrointestinal: Reports as per HPI Genitourinary: Genitourinary: Reports as per HPI Musculoskeletal: Musculoskeletal: Reports as per HPI Integumentary/Breasts: Skin/Breast: Reports as per HPI Neurologic: Reports as per HPI Psychiatric: Psychiatric: Reports as per HPI Endocrine: Endocrine: Reports as per HPI Hematologic/Lymphatic: Hematologic/Lymphatic: Reports as per HPI Allergic/Immunologic: Allergic/Immunologic: Reports as per HPI PMF Past Medical History Attestation statement: The following information was validated with the patient. 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 Son No problems noted. Social History Social History Housing: Apartment Alcohol intake: never Patient Tobacco Use Status: Former Tobacco user e-Cigarette/Vaping Use: Never Used Second Hand Smoke Exposure: Yes Advance Directives: No Advance Directives Information Provided: Yes Do you have a plan to hurt others: No Plan service: No Current occupational status: retired Cognitive needs: Yes (walker) Hearing needs: No Vision needs: Yes (glasses) Physical Exam ED Vital Signs: Vital Signs - 24 hr 07/31/25 12:01 Temperature 97.8 F Pulse Rate 80 Respiratory Rate 18 Blood Pressure 137/62 Pulse Oximetry 94 Oxygen Delivery Method Room Air BMI result Body Mass Index 17.6 Const General: cooperative, no acute distress, alert and awake Nutritional Appearance: well nourished Orientation/consciousness: patient oriented x3 HENMT Head: Yes normal to inspection and Yes atraumatic Ears: hearing grossly normal bilaterally and external ears normal General nose exam: Normal external nose present, no nasal discharge noted and no epistaxis Face and sinus: Yes normal facial exam, No abrasion and No laceration Mouth: Normal oral and palatal mucosa present, no drooling and no muffled voice Eyes General: appearance normal, both eyes and all related structures Periorbital: periorbital findings normal Eyelids: Yes eyelids normal Conjunctivae: conjunctivae normal Pupils: Equal, round and reactive pupils present EOM: EOMs intact bilaterally Neck Neck: Yes normal visual inspection and Yes full ROM Resp Effort & Inspection: normal respiratory effort and able to speak in complete sentences Neuro General: patient oriented x3, moves all extremities and CN's II-XI intact bilaterally Cranial nerves: Yes Equal, round and reactive pupils present Cognition (Neuro): normal cognition Extrem Other: Psych Appearance: grossly normal Mental Status: mental status grossly normal Affect: normal affect Attitude: cooperative Thought process: Normal thought process present Thought content: Normal thought content present Insight: Good insight present (Psych) Medications Administered Discontinued Medications Generic Name Dose Route Start Last Admin Trade Name Max PRN Reason Stop Dose Admin Ceftriaxone Sodium 1 gm 07/31/25 10:51 07/31/25 11:15 Ceftriaxone Sodium 1 Gm Vial IVPUSH 07/31/25 10:52 1 gm ONCE ONE Administration Vancomycin HCl 1,250 mg/ 250 mls @ 166.667 mls/hr 07/31/25 11:15 07/31/25 13:20 Sodium Chloride IV 07/31/25 12:44 Infused ONCE ONE Infusion Potassium Chloride 10 meq in 100 mls @ 100 mls/hr 07/31/25 11:45 07/31/25 13:57 Potassium Chloride/H20 IV 07/31/25 13:44 Infused Q1H NADIA Infusion Potassium Chloride 40 meq 07/31/25 11:31 07/31/25 11:51 Potassium Chloride Er 20 Meq Tab.Er.Prt PO 07/31/25 11:32 40 meq ONCE ONE Administration Medical Decision Making Medical Decision Making [facility] Narrative: Patient is an 89 year old assigned female at with a history of PAD, HTN, GERD, LVH, hypothyroidism, CAD, HLD, HFpEF, and aortic stenosis presenting to the emergency department today with bilateral necrotic foot wounds s/p 7 day antibiotic course. Patient's physical exam showed a frail woman with necrotic tissue on the plantar surface of the right foot on all 5 toes as well as necrotic tissue on plantar surface of the left 3rd toe with bilateral lower leg erythema. Patient's blood work showed hgb of 7.8 + HCT of 25.8 + ESR 25, potassium of 2.8, and CR of 1.69. Appears as though the patient is newly anemic with an HERMINIO and hypokalemia. Patient was given potassium repletion. Patient's urine showed evidence of a UTI with large leuka, >50 WBC, and 1+ bacteria. Patient's EKG was unremarkable. Patient's bilateral feet x-rays showed no evidence of osteo. I explained my physical exam findings as well as all test results to the patient. I answered all questions asked by the patient. Patient was given IV ceftriaxone and vancomycin. Patient's clinical presentation is most consistent with HERMINIO, UTI, and bilateral foot cellulitis with necrotic tissue but NOT with sepsis (@1051). I spoke with the hospitalist team who agreedto admission for continued IV antibiotics, hydration, and electrolyte correction. Patient verbalized agreement and understanding with this treatment plan and admission. Differential Diagnosis Differential Diagnoses: The differential diagnosis associated with the presentation includes Bilateral foot cellulitis HERMINIO UTI Hypokalemia Admission/Observation Consideration of admission/observation: Escalation of care including admission/observation considered Patient admitted as noted in the MDM Rationale portion of this note. Consult Healthcare Provider Management of the patient was discussed with: Hospitalist (agreed to admission as noted in the MDM Rationale portion of this note. ) Lab Data [facility] Lab Attestation statement: I reviewed the patient's lab results. My interpretation of these results are in the MDM Rationale portion of this note. 07/31/25 10:44 07/31/25 10:44 Labs: Lab Results 07/31/25 07/31/25 07/31/25 Range/Units 10:43 10:44 10:50 WBC 6.7 (4.8-10.8) X10*3/uL RBC 3.32 L (4.20-5.50) X10*6/uL Hgb 7.8 L D (12.0-16.0) g/dl Hct 25.8 L D (37.0-47.0) % MCV 77.7 L (80.0-98.0) fL MCH 23.5 L (27.0-33.0) pg MCHC 30.2 L (31.0-35.0) g/dl RDW 19.2 H (11.0-16.0) % Plt Count 290 D (160-400) X10*3/uL MPV 10.5 (9.4-12.3) fL Immature Gran % (Auto) 0.3 (0.0-0.4) % Neut % (Auto) 72.7 (45-73) % Lymph % (Auto) 13.6 L (20-40) % Powell % (Auto) 10.9 (2-11) % Eos % (Auto) 1.8 (0-4) % Baso % (Auto) 0.7 (0-2) % Lymph # (Auto) 0.9 L (1.2-4.9) X10*3/uL Powell # (Auto) 0.7 (0.1-1.2) X10*3/uL Eos # (Auto) 0.1 (0.0-0.4) X10*3/uL Baso # (Auto) 0.1 (0.0-0.2) X10*3/uL Abs Immat Gran (auto) 0.02 (0.00-0.03) X10*3/uL Absolute Neuts (auto) 4.8 (2.0-8.3) x10*3/uL Absolute Nucleated RBC 0.000 (0.0-0.012) X10*3/uL Nucleated RBC % (auto) 0.0 (0.0-0.2) /100WBC ESR 25 H (0-20) MM/HR VBG pH 7.38 (7.32-7.43) VBG pCO2 39 mmHg VBG pO2 39 mmHg VBG HCO3 24 (22-26) mmol/L VBG O2 Saturation 54.0 % VBG Base Excess -0.7 mmol/L Sodium 137 (135-145) mmol/L Potassium 2.8 L* D (3.3-5.1) mmol/L Chloride 103 (96-108) mmol/L Carbon Dioxide 23 (22-29) mmol/L Anion Gap 14 (12-20) BUN 86 H (9-16) mg/dL Creatinine 1.69 H (0.5-1.4) mg/dL Estim Creat Clear Calc 17.2 Estimated GFR 29 Random Glucose 106 (60-115) mg/dL Lactic Acid 1.3 (0.5-2.0) mmol/L Calcium 8.9 (8.4-10.2) mg/dL Magnesium 2.0 (1.6-2.6) mg/dL Total Bilirubin 0.4 (0.0-1.0) mg/dL AST 27 (5-31) U/L ALT 10 (0-31) U/L Alkaline Phosphatase 76 (39-117) U/L Troponin I High Sens 29.6 H (<3.5-17.0) ng/L Total Protein 6.7 (6.5-8.0) g/dL Albumin 3.6 (3.5-5.0) g/dL Urine Color Urine Appearance Urine pH (5.0-9.0) Ur Specific [place] (1.005-1.025) Urine Protein (Neg-Trace) mg/dL Urine Glucose (UA) (Negative) mg/dL Urine Ketones (Negative) mg/dL Urine Blood (Negative) Urine Nitrite (Negative) Ur Leukocyte Esterase (Negative) Urine RBC (0-2) /HPF Urine WBC (0-5) /HPF Ur Squamous Epith Cells (0-2) /HPF Urine Bacteria (None Seen) Hyaline Casts (0-2) /LPF 07/31/25 Range/Units 11:49 WBC (4.8-10.8) X10*3/uL RBC (4.20-5.50) X10*6/uL Hgb (12.0-16.0) g/dl Hct (37.0-47.0) % MCV (80.0-98.0) fL MCH (27.0-33.0) pg MCHC (31.0-35.0) g/dl RDW (11.0-16.0) % Plt Count (160-400) X10*3/uL MPV (9.4-12.3) fL Immature Gran % (Auto) (0.0-0.4) % Neut % (Auto) (45-73) % Lymph % (Auto) (20-40) % Powell % (Auto) (2-11) % Eos % (Auto) (0-4) % Baso % (Auto) (0-2) % Lymph # (Auto) (1.2-4.9) X10*3/uL Powell # (Auto) (0.1-1.2) X10*3/uL Eos # (Auto) (0.0-0.4) X10*3/uL Baso # (Auto) (0.0-0.2) X10*3/uL Abs Immat Gran (auto) (0.00-0.03) X10*3/uL Absolute Neuts (auto) (2.0-8.3) x10*3/uL Absolute Nucleated RBC (0.0-0.012) X10*3/uL Nucleated RBC % (auto) (0.0-0.2) /100WBC ESR (0-20) MM/HR VBG pH (7.32-7.43) VBG pCO2 mmHg VBG pO2 mmHg VBG HCO3 (22-26) mmol/L VBG O2 Saturation % VBG Base Excess mmol/L Sodium (135-145) mmol/L Potassium (3.3-5.1) mmol/L Chloride (96-108) mmol/L Carbon Dioxide (22-29) mmol/L Anion Gap (12-20) BUN (9-16) mg/dL Creatinine (0.5-1.4) mg/dL Estim Creat Clear Calc Estimated GFR Random Glucose (60-115) mg/dL Lactic Acid (0.5-2.0) mmol/L Calcium (8.4-10.2) mg/dL Magnesium (1.6-2.6) mg/dL Total Bilirubin (0.0-1.0) mg/dL AST (5-31) U/L ALT (0-31) U/L Alkaline Phosphatase (39-117) U/L Troponin I High Sens (<3.5-17.0) ng/L Total Protein (6.5-8.0) g/dL Albumin (3.5-5.0) g/dL Urine Color Yellow Urine Appearance Cloudy Urine pH 6.0 (5.0-9.0) Ur Specific [place] 1.010 (1.005-1.025) Urine Protein Trace (Neg-Trace) mg/dL Urine Glucose (UA) Negative (Negative) mg/dL Urine Ketones Negative (Negative) mg/dL Urine Blood Trace H (Negative) Urine Nitrite Negative (Negative) Ur Leukocyte Esterase Large (3+) H (Negative) Urine RBC 0-2 (0-2) /HPF Urine WBC >50 H (0-5) /HPF Ur Squamous Epith Cells 0-2 (0-2) /HPF Urine Bacteria 1+ (None Seen) Hyaline Casts 0-2 (0-2) /LPF Independent Interpretation I performed an independent interpretation of an: EKG and Plain X-Ray Interpretation: My interpretation is in agreement with the radiologist's impression of these imaging studies. L Reason for Exam: osteo eval, necrosis EXAMINATION: XR FOOT, RIGHT CLINICAL INFORMATION: osteo eval, necrosis COMPARISON: None available. TECHNIQUE: AP, lateral, and oblique views of the right foot. FINDINGS: There is severe diffuse osteopenia, limiting sensitivity of the exam. No fracture, dislocation, or suspicious bone lesion. No region of permeative bone changes to suggest radiographic changes of osteomyelitis. Joint spaces are largely preserved. There are hammertoe deformities. There is a mild pes planus. There is a moderate-sized plantar calcaneal spur. Soft tissues demonstrate diffuse vascular calcifications. There is notable soft tissue swelling of the dorsum of the forefoot. XR/XR foot RT min 3V IMPRESSION: 1. Soft tissue swelling dorsum of the forefoot. Vascular calcifications in the soft tissues. 2. No radiographic evidence of osteomyelitis. No acute bony abnormality. 3. Diffuse osteopenia. Electronically signed by: Vu Loomis MD 07/31/2025 11:33 AM EDT Dictated By: Vu Loomis MD Signed By: Electronically signed by Vu Loomis MD 07/31/25 1133 EXAMINATION: XR FOOT, LEFT CLINICAL INFORMATION: osteo eval, necrosis COMPARISON: None available. TECHNIQUE: AP, lateral, and oblique views of the left foot. FINDINGS: There is severe diffuse osteopenia, limiting sensitivity of the exam. No fracture, dislocation, or suspicious bone lesion. No region of permeative bone changes to suggest radiographic changes of osteomyelitis. Joint spaces are largely preserved. There are hammertoe deformities. There is a mild pes planus. There is a small-sized plantar calcaneal spur. Soft tissues demonstrate diffuse vascular calcifications. There is notable soft tissue swelling of the dorsum of the forefoot. XR/XR foot LT min 3V IMPRESSION: 1. Soft tissue swelling dorsum of the forefoot. Vascular calcifications in the soft tissues. 2. No radiographic evidence of osteomyelitis. No acute bony abnormality. 3. Diffuse osteopenia. Electronically signed by: Vu Loomis MD 07/31/2025 11:35 AM EDT Dictated By: Vu Loomis MD Signed By: Electronically signed by Vu Loomis MD 07/31/25 1135 I independently interpreted this EKG and am in agreement with the below findings: Vent. Rate: 78 BPM Atrial Rate: 78 BPM P-R Int: 148 ms QRS Dur: 128 ms QT Int: 404 ms P-R-T Axes: 69 -37 79 degrees QTcB Int: 460 ms Normal sinus rhythm Left axis deviation Left ventricular hypertrophy with QRS widening and repolarization abnormality (R in aVL , [place]inner product , Romhilt-Dodge) When compared with ECG of 10-Jun-2020 16:02, Premature supraventricular complexes are no longer Present DD/ 1026 Radiology Impression Discussion of test interpretation with radiology: I have reviewed the radiologist's reading. Independent Historian Clinical information obtained from an independent historian. History obtained from or confirmed by: EMS (EMS provided additional history and confirmed the history provided by the patient. ) Critical Care Time Critical Care Time Critical Care Time: Yes Total Critical Care Time: 38 Attestation: I spent 38 minutes of Critical Care Time with this patient. This does not include time spent on separately reported billable procedures. Discharge Plan Discharge Clinical Impression: Cellulitis, UTI (urinary tract infection), Acute hypokalemia, HERMINIO (acute kidney injury), Anemia Patient Disposition: Admitted As Inpatient
[2025-07-31 10:49] LABS: MANUAL DIFF FLAG NO
[2025-07-31 10:51] LABS: Hematocrit 25.8 % (37.0-47.0); Hemoglobin 7.8 g/dl (12.0-16.0); Imm Gran Abs Auto 0.02 X10*3/uL (0.00-0.03); Imm Gran Pct Auto 0.3 % (0.0-0.4); Lymphocytes Absolute Auto 0.9 X10*3/uL (1.2-4.9); Mean Corpuscular HGB Conc 30.2 g/dl (31.0-35.0); Mean Corpuscular Hemoglobin 23.5 pg (27.0-33.0); Mean Corpuscular Volume 77.7 fL (80.0-98.0); NRBC Abs Auto 0.000 X10*3/uL (0.0-0.012); NRBC Pct Auto 0.0 /100WBC (0.0-0.2); Platelet Count 290 X10*3/uL (160-400); Red Blood Count 3.32 X10*6/uL (4.20-5.50); White Blood Count 6.7 X10*3/uL (4.8-10.8)
[2025-07-31 10:55] LABS: Venous Blood Gas Refer to POC result
[2025-07-31 10:55] LABS: VBG HCO3 24 mmol/L (22-26); VBG O2 % Saturation 54.0 %
[2025-07-31 11:09] LABS: Alanine Aminotransferase 10 U/L (0-31); Albumin Level 3.6 g/dL (3.5-5.0); Alkaline Phosphatase 76 U/L (39-117); Anion Gap 14 (12-20); Aspartate Amino Transferase 27 U/L (5-31); Blood Urea Nitrogen 86 mg/dL (9-16); Calcium 8.9 mg/dL (8.4-10.2); Carbon Dioxide 23 mmol/L (22-29); Chloride 103 mmol/L (96-108); Creatinine Clr Calc Pharmacy 17.2; Estimated Glomerular Filt Rate 29; Potassium 2.8 mmol/L (3.3-5.1); Sodium 137 mmol/L (135-145); Total Protein 6.7 g/dL (6.5-8.0)
[2025-07-31 11:14] LABS: Troponin-I High Sensitivity 29.6 ng/L (<3.5-17.0)
[2025-07-31 11:31] LABS: Magnesium 2.0 mg/dL (1.6-2.6)
[2025-07-31] MEDS: Potassium Chloride ER 20 MEQ TAB.ER.PRT 40 MEQ PO (11:51)
[2025-07-31] MEDS: Potassium Chloride/H20 10 MEQ/100 ML PIGGYBACK 100 MEQ IV ×2 (11:52→12:47)
[2025-07-31 11:57] LABS: Appearance Urine Cloudy; Glucose Urine UA Negative (Negative); PH 6.0 (5.0-9.0); Specific Gravity - Urine 1.010 (1.005-1.025); UMIC TRIGGER UACC YES
[2025-07-31 12:01] VITALS: BP 137/62; PULSE 80; RESP 18; TEMP 36.6; O2SAT 94
[2025-07-31 12:08] LABS: UACC Culture Trigger YES
--- NOTE | 2025-07-31 12:50 | PC.NURSE ---
Pt is alert and oreinted x 4. Reports pain is 6/10 in right foot. Swallowed potassium pills without difficulty. Tolerating IV vanco and potassium.
--- NOTE | 2025-07-31 13:16 | MHC.CM.ED ---
Patient is currently in ER. Received notification from [facility] that patient was scheduled to have informational meeting with hospice today. Met with patient about hospice informational meeting. Patient would prefer to wait until her son, Noe, is available for hospice informational meeting. [facility] made aware and will reach out to son about hospice informational meeting. Continue to monitor for d/c needs.
--- OUTSIDE RECORDS SUMMARY | 2025-07-31 14:02 | XMS_ITS | Patient Health Record ---
Author Organization [facility] Address [address] [place] [address] Care Team Providers Care Electric Range Preparer Name Role Phone Steven SMALLWOOD, Owen Primary Care Provider Abdulaziz Wheeler Unavailable [phone] Allergies Allergen (clinical drug ingredient) Drug/Non Drug [...] Date MEDICARE OF [place] [address] [place] [address] [id number] GAURAV SALGUERO Self - patient is the insured [employer] ATTN CLAIMS [address] [place] [address] [phone] [id number] GAURAV SALGUERO Self - patient is the insured Medical (General) History Medical History History ICD Code egd 11-26-2010 colonoscopy 08-29-2002 Montano's Esophagus esophageal reflux hypertension esophageal stricture Surgical History Surgery Date(Month/Year) hysterectom limited colon resection for diverticulit is
--- NOTE | 2025-07-31 14:19 | P.HPHOSP_ITS ---
History of Present Illness Date of Service: 07/31/25 Attending physician on admission: Mag Hickey Chief Complaint: Left foot pain Lucio Gannon is 89 years old woman with past medical history significant for the PAD, essential hypertension, hyperlipidemia, HFpEF, coronary artery disease, severe aortic stenosis and hypothyroidism presents to the emergency department complaining of right foot pain associated with swelling, redness in darkness to toes and redness over the last month. About 6 months ago she was seen at urgent care for similar symptoms and was treated with antibiotics which she took for 7 days without significant improvement. She denied fever. She denied any acute cardiopulmonary, gastrointestinal or genitourinary symptoms. In the ED, she was found to have normal vital signs. Blood workup showed no leukocytosis. Hemoglobin 7.8 and platelets are normal. Venous blood gas showed pH of 7.39 a pCO2 of 39. HC03 is 24. Blood workup was remarkable for hypokalemia of 2.8. There are no other electrolyte imbalances. BUN is 86 and creatinine 1.69. Glucose is 106. Urinalysis showed trace blood, leukocyte esterase 2+, WBC > 50 and RBC 0-2. ECG showed left ventricle hypertrophy with QRS without tachycardia. Left foot x-ray showed soft tissue swelling dorsum of the forefoot without radiographic evidence of osteomyelitis or bone abnormality. ED tx: Ceftriaxone 1 g IV, vancomycin 1250 mg Review of Systems 2 Review of Systems: All 12 systems were reviewed and normal except as noted in HPI. [facility] Medical History Essential hypertension Acquired hypothyroidism Hyperlipidemia CAD (coronary artery disease) HTN (hypertension) (HFpEF) heart failure with preserved ejection fraction Aortic stenosis PAD (peripheral artery disease) Wound infection Family History Father CAD (coronary artery disease) Throat cancer Stroke Mother No problems noted. Son No problems noted. 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 Hx of salpingo-oophorectomy, bilateral History of cataract surgery History of bladder suspension procedure H/O arthroscopy of right knee H/O partial resection of colon H/O rectocele repair History of cystocele History of hysterectomy Social History Housing: Apartment Alcohol intake: never Patient Tobacco Use Status: Former Tobacco user e-Cigarette/Vaping Use: Never Used Second Hand Smoke Exposure: Yes Advance Directives: No Advance Directives Information Provided: Yes Do you have a plan to hurt others: No Plan service: No Current occupational status: retired Cognitive needs: Yes (walker) Hearing needs: No Vision needs: Yes (glasses) Meds Allergies Allergy/AdvReac Type Severity Reaction Status Date / Time aspirin (Aspirin) Allergy Mild ACID Verified 07/31/25 10:18 REFLUX, gi upset ciprofloxacin (From CIPRO) Allergy Unknown RASH Verified 07/31/25 10:18 Sulfa (Sulfonamide Allergy Unknown DIZZINESS Verified 07/31/25 10:18 Antibiotics) (SULFA (SULFONAMIDE ANTIBIOTICS)) Active Medications: Current Medications Acetaminophen (Acetaminophen 325 Mg Tablet) 975 mg PO Q6H PRN PRN Reason: Pain, Mild 1-3,fever,headache Calcium Carbonate (Calcium Carbonate 750 Mg Tab.Chew) 750 mg PO Q4H PRN PRN Reason: Heartburn Heparin Sodium (Porcine) (Heparin Sodium,Porcine 5,000 Unit/Ml Vial) 5,000 unit SUBCUT Q12H NADIA Magnesium Hydroxide (Milk Of Magnesia 30 Ml Oral.Susp) 30 ml PO DAILY PRN PRN Reason: Constipation Melatonin (Melatonin 3 Mg Tablet) 6 mg PO BEDTIME PRN PRN Reason: Insomnia Sodium Chloride (0.9 % Sodium Chloride Flush 3 Ml Syringe) 3 ml IVFLUSH QSHIFT NADIA Home Medications ?Medication ?Instructions ?Recorded ?Confirmed ?Last Taken ?Type calcium 600 mg (as 1 cap PO DAILY 08/06/20/03/0107/30/25 History carbonate)-vitamin D3 5 mcg (200 unit) capsule (Calcium 600 + D(3)) vitamin E (dl, acetate) 180 mg 400 unit PO DAILY 08/0607/31/25 07/30/25 History (400 unit) capsule bumetanide 1 mg tablet 1 mg PO DAILY@1200 07/31/25 07/31/25 07/30/25 History bumetanide 1 mg tablet 2 mg PO DAILY 07/31/2507/3107/31/25 History levothyroxine 88 mcg tablet 88 mcg PO DAILY@0600 07/3107/31/25 07/31/25 History Physical Exam 2 Vital Signs and Narrative: Vital Signs: Last Vital Signs Temp 97.8 F 07/31/25 12:01 Pulse 80 07/31/25 12:01 Resp 18 07/31/25 12:01 BP 137/62 07/31/25 12:01 Pulse Ox 94 07/31/25 12:01 O2 Del Method Room Air 07/31/25 12:01 BMI result Body Mass Index 17.6 Constitutional - Awake and Alert, No apparent distress HEENT - PER, EOMI Heart - RRR, high pitch holosystolic murmur best heard right sternal border. Lungs - Normal lung expansion, Normal respiratory effort, No respiratory distress, CTA bilaterally Abdomen - NT / ND; +BS; No rebound or guarding Extremities: Musculoskeletal - generalized atrophy Skin - Warm/Dry Neurological - Alert & oriented x3. Psychological - Appropriate affect Results Labs 07/31/25 10:44 07/31/25 10:44 Labs: Laboratory Results - last 24 hr 07/31/25 07/31/25 07/31/25 10:43 10:44 10:50 MCV 77.7 L MCH 23.5 L MCHC 30.2 L RDW 19.2 H Plt Count 290 D MPV 10.5 Immature Gran % (Auto) 0.3 Neut % (Auto) 72.7 Lymph % (Auto) 13.6 L [place] % (Auto) 10.9 Eos % (Auto) 1.8 Baso % (Auto) 0.7 Lymph # (Auto) 0.9 L [place] # (Auto) 0.7 Eos # (Auto) 0.1 Baso # (Auto) 0.1 Abs Immat Gran (auto) 0.02 Absolute Neuts (auto) 4.8 Absolute Nucleated RBC 0.000 Nucleated RBC % (auto) 0.0 ESR 25 H VBG pH 7.38 VBG pCO2 39 VBG pO2 39 VBG HCO3 24 VBG O2 Saturation 54.0 VBG Base Excess -0.7 Anion Gap 14 Estim Creat Clear Calc 17.2 Estimated GFR 29 Random Glucose 106 Lactic Acid 1.3 Calcium 8.9 Magnesium 2.0 Total Bilirubin 0.4 AST 27 ALT 10 Alkaline Phosphatase 76 Troponin I High Sens 29.6 H Total Protein 6.7 Albumin 3.6 Urine Color Urine Appearance Urine pH Ur Specific [place] Urine Protein Urine Glucose (UA) Urine Ketones Urine Blood Urine Nitrite Ur Leukocyte Esterase Urine RBC Urine WBC Ur Squamous Epith Cells Urine Bacteria Hyaline Casts 07/31/25 11:49 MCV MCH MCHC RDW Plt Count MPV Immature Gran % (Auto) Neut % (Auto) Lymph % (Auto) [place] % (Auto) Eos % (Auto) Baso % (Auto) Lymph # (Auto) [place] # (Auto) Eos # (Auto) Baso # (Auto) Abs Immat Gran (auto) Absolute Neuts (auto) Absolute Nucleated RBC Nucleated RBC % (auto) ESR VBG pH VBG pCO2 VBG pO2 VBG HCO3 VBG O2 Saturation VBG Base Excess Anion Gap Estim Creat Clear Calc Estimated GFR Random Glucose Lactic Acid Calcium Magnesium Total Bilirubin AST ALT Alkaline Phosphatase Troponin I High Sens Total Protein Albumin Urine Color Yellow Urine Appearance Cloudy Urine pH 6.0 Ur Specific [place] 1.010 Urine Protein Trace Urine Glucose (UA) Negative Urine Ketones Negative Urine Blood Trace H Urine Nitrite Negative Ur Leukocyte Esterase Large (3+) H Urine RBC 0-2 Urine WBC >50 H Ur Squamous Epith Cells 0-2 Urine Bacteria 1+ Hyaline Casts 0-2 Imaging Radiologist's Impressions: Impressions Foot X-Ray 07/31/25 11:11 IMPRESSION: 1. Soft tissue swelling dorsum of the forefoot. Vascular calcifications in the soft tissues. 2. No radiographic evidence of osteomyelitis. No acute bony abnormality. 3. Diffuse osteopenia. Electronically signed by: Vu Loomis MD 07/31/2025 11:35 AM EDT [facility] Foot X-Ray 07/31/25 11:14 IMPRESSION: 1. Soft tissue swelling dorsum of the forefoot. Vascular calcifications in the soft tissues. 2. No radiographic evidence of osteomyelitis. No acute bony abnormality. 3. Diffuse osteopenia. Electronically signed by: Vu Loomis MD 07/31/2025 11:33 AM EDT [facility] Assessment and Plan (1) Cellulitis of right foot: Status: Acute (2) UTI (urinary tract infection): Qualifiers: Hematuria presence: without hematuria Urinary tract infection type: s ite unspecified Qualified Code(s): N39.0 - Urinary tract infection, site not specified Status: Acute (3) Hypokalemia: Status: Acute (4) Acute hypokalemia: Status: Acute (5) HERMINIO (acute kidney injury): Status: Acute Plan Lucio Gannon is 89 y/o woman with a PMHx significant for the PAD who presents with. Right foot cellulitis associated with multiple necrotic toes. Empiric IV antibiotic therapy with vancomycin and Zosyn. Blood cultures were obtained - with follow results. Check right foot MRI to assess for osteomyelitis and/or abscesses. Surgery consult. Acute kidney injury. Likely secondary to bumetanide and losartan; hold this for now. LR 500 ml bolus. Continue to monitor renal function. Avoid nephrotoxic agents. Urinary tract infection. Empiric IV antibiotic therapy with Zosyn. Urine culture obtained -we will follow results. Worsening anemia over the last 6 months. Hbg 10.7 --> 7.8. Hold aspirin for now. Check anemia workup. Pantoprazole 40 mg IV b.i.d.. Continue to monitor. GI consult. Hypokalemia. Likely secondary to bumetanide; hold for now. Received 40 mEq of KCl in the ED. replete as needed. Continue to monitor Essential hypertension. Losartan on hold due to HERMINIO. Continue metoprolol. Continue to monitor BP for now. Hypothyroidism. Continue levothyroxine. Hyperlipidemia. Continue statin. Aortic stenosis, severe. Patient has been refusing surgery. Intermittent asthma. Continue albuterol as needed. CAD. S/p CABG. Continue statin. Aspirin on hold. Code status: Full DVT prophylaxis: Heparin Patient will need hospitalization for at least 2 midnights for right foot cellulitis associated with multiple toes with necrotic tissue treatment with IV antibiotics and prompt evaluation by surgery. Quality Stroke Does the patient have a stroke diagnosis?: No VTE Prior VTE?: No VTE Risk Level:: Medical - moderate - high VTE Device Contraindication: Treatment Not Indicated VTE Drug Contraindication: N/A - Med Ordered
--- NOTE | 2025-07-31 14:40 | PHA.MEDREC ---
Addendum entered by Lucy Marquis RPh 07/31/25 15:01: Reviewed by [facility] Original Note: Pharmacy Consult ? Medication Reconciliation Pharmacy has completed the medication reconciliation. Patient had a list of her medications with her. Patient states she had Bumetanide 2 mg, Levothyroxine 88 mg, and Pantoprazole 40 mg today and all of her other medications she took yesterday.
--- NOTE | 2025-07-31 15:01 | PM.CNGS ---
History of Present Illness Consult details Consult date: 07/31/25 <Noe Kong PA-C - Last Filed: 07/31/25 15:37> Reason for consult: other (Necrotic Toes) <Noe Kong PA-C - Last Filed: 07/31/25 15:37> Narrative: 89 year old female with a history of PAD, HTN, LVH, HFpEF, hypothyroid, CAD, Aortic stenosis, s/p right femoral endarterectomy with Dr Rayo in may 2020 seen in consult for necrotic wounds of the toes on bilatereral feet after her vistiing nurse recommended she come to the emergency departement. The right is worse than the left. She is on day 7 of 10 for antibiotics for lower extremity cellulitis, but states her feet have been worsening, becoming more painful. She reports that thsi has been going on for about 6 months. She has significant edema of the lower extremitites that weeps fluid. It has been getting progressively more difficult for her to ambulate, usually uses a walker but has been using a wheelchair for the past 2 weeks. She denies fevers or chills at home. Xray in the ED shows soft tissue swelling and vascular calcifications. no evidence of osteo. Labs significant for new anemia, HERMINIO hypokalemia, UTI. This was repleted in the ED. SHe was stared on ceftriaxone and vanco. <Noe Kong PA-C - Last Filed: 07/31/25 15:37> [facility] Past Medical History Medical History: Medical History Essential hypertension Acquired hypothyroidism Hyperlipidemia CAD (coronary artery disease) HTN (hypertension) (HFpEF) heart failure with preserved ejection fraction Aortic stenosis PAD (peripheral artery disease) Wound infection <Noe Kong PA-C - Last Filed: 07/31/25 15:37> Family History Family History: Family History Father CAD (coronary artery disease) Throat cancer Stroke Mother No problems noted. Son No problems noted. <Noe Kong PA-C - Last Filed: 07/31/25 15:37> Surgical History Surgical History: 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 Hx of salpingo-oophorectomy, bilateral History of cataract surgery History of bladder suspension procedure H/O arthroscopy of right knee H/O partial resection of colon H/O rectocele repair History of cystocele History of hysterectomy <Noe Kong PA-C - Last Filed: 07/31/25 15:37> Social History Social History: Social History Housing: Apartment Alcohol intake: former Patient Tobacco Use Status: Former Tobacco user e-Cigarette/Vaping Use: Never Used Second Hand Smoke Exposure: Yes service: No Current occupational status: retired Cognitive needs: Yes (walker) Hearing needs: No Vision needs: Yes (glasses) <Noe Kong PA-C - Last Filed: 07/31/25 15:37> Meds Allergies/Adverse reactions: Allergies Allergy/AdvReac Type Severity Reaction Status Date / Time aspirin (Aspirin) Allergy Mild ACID Verified 07/31/25 10:18 REFLUX, gi upset ciprofloxacin (From CIPRO) Allergy Unknown RASH Verified 07/31/25 10:18 Sulfa (Sulfonamide Allergy Unknown DIZZINESS Verified 07/31/25 10:18 Antibiotics) (SULFA (SULFONAMIDE ANTIBIOTICS)) <Noe Kong PA-C - Last Filed: 07/31/25 15:37> Active Medications: Current Medications Acetaminophen (Acetaminophen 325 Mg Tablet) 975 mg PO Q6H PRN PRN Reason: Pain, Mild 1-3,fever,headache Last Admin: 07/31/25 14:56 Dose: 975 mg Albuterol Sulfate (Albuterol Sulfate 90 Mcg 8 Gm Inhaler) 2 puff INHALE Q4H PRN PRN Reason: bronchospasm Atorvastatin Calcium (Atorvastatin Calcium 20 Mg Tablet) 20 mg PO DAILY NADIA Calcium Carbonate (Calcium Carbonate 750 Mg Tab.Chew) 750 mg PO Q4H PRN PRN Reason: Heartburn Heparin Sodium (Porcine) (Heparin Sodium,Porcine 5,000 Unit/Ml Vial) 5,000 unit SUBCUT Q12H NADIA Piperacillin Sod/Tazobactam (Sod 3.375 gm/ Sodium Chloride) 50 mls @ 100 mls/hr IV Q6H NADIA Last Admin: 07/31/25 14:56 Dose: 100 mls/hr Vancomycin HCl 500 mg/ Sodium (Chloride) 110 mls @ 110 mls/hr IV Q24H [facility] Lactated Ringer's (Lr) 500 mls @ 999 mls/hr IV .Q31M STA Stop: 07/31/25 15:13 Levothyroxine Sodium (Levothyroxine Sodium 88 Mcg Tablet) 88 mcg PO DAILY@0600 [facility] Magnesium Hydroxide (Milk Of Magnesia 30 Ml Oral.Susp) 30 ml PO DAILY PRN PRN Reason: Constipation Melatonin (Melatonin 3 Mg Tablet) 6 mg PO BEDTIME PRN PRN Reason: Insomnia Metoprolol Succinate (Metoprolol Succinate Er 50 Mg Tab.Er.24h) 50 mg PO DAILY [facility]; Protocol Non-Formulary Medication (Calcium Carbonate-Vitamin D3 [Calcium 600 + D(3)]) 1 cap PO DAILY [facility] Pantoprazole Sodium (Pantoprazole Sodium 40 Mg/10 Ml Vial) 40 mg IVPUSH BID@0630,1630 [facility] Pharmacy Consult (Consult Rx Vancomycin Dosing) 1 each MISCELLANE DAILY PRN PRN Reason: Consult order Sodium Chloride (0.9 % Sodium Chloride Flush 3 Ml Syringe) 3 ml IVFLUSH QSHIFT [facility] Tramadol HCl (Tramadol Hcl 50 Mg Tablet) 50 mg PO BEDTIME PRN PRN Reason: severe pain Vitamin E (Vitamin E (Dl,Tocopheryl Acet) 180 Mg (400 Unit) Capsule) mg PO DAILY [facility] <Noe Kong PA-C - Last Filed: 07/31/25 15:37> Home medications: Home Medications ?Medication ?Instructions ?Recorded ?Confirmed ?Last Taken ?Type calcium 600 mg (as 1 cap PO DAILY 08/06/20 07/31/25 07/30/25 History carbonate)-vitamin D3 5 mcg (200 unit) capsule (Calcium 600 + D(3)) vitamin E (dl, acetate) 180 mg 400 unit PO DAILY 08/06/20 07/31/25 07/30/25 History (400 unit) capsule bumetanide 1 mg tablet 1 mg PO DAILY@1200 07/31/25 07/31/25 07/30/25 History bumetanide 1 mg tablet 2 mg PO DAILY 07/31/25 07/31/25 07/31/25 History levothyroxine 88 mcg tablet 88 mcg PO DAILY@0600 07/31/25 07/31/25 07/31/25 History <Noe Kong PA-C Padmaja Last Filed: 07/31/25 15:37> Physical Exam Vital Signs: Vital Signs: Last Vital Signs Temp 97.8 F 07/31/25 12:01 Pulse 80 07/31/25 12:01 Resp 18 07/31/25 12:01 BP 137/62 07/31/25 12:01 Pulse Ox 94 07/31/25 12:01 O2 Del Method Room Air 07/31/25 12:01 BMI result Body Mass Index 17.6 <DANNI Clemente Last Filed: 07/31/25 15:37> Const: General: comfortable and no acute distress <DANNI Clemente Last Filed: 07/31/25 15:37> Orientation/consciousness: patient oriented x3 <Noe Kong PA-C Padmaja Last Filed: 07/31/25 15:37> Resp: Effort & Inspection: normal respiratory effort and able to speak in complete sentences <Noe Kong PA-C Padmaja Last Filed: 07/31/25 15:37> Neuro: General: patient oriented x3 <Noe Kong PA-C Padmaja Last Filed: 07/31/25 15:37> Extrem: Other: Right lower extremity: Necrosis of the plantar aspect of all 5 toes with significant macerated tissue extending through the metatarsals. Tender to the touch. Malodorous. Cellulitis extending to mid [place]connell. There was a large fluid collection on the dorsum of the right foot Left lower extremity: Mild necrosis of the 3rd toe. Localized cellulitis surrounding toes <DANNI Clemente Last Filed: 07/31/25 15:37> General: Yes edema (Moderate edema bilateral lower extremities from foot to mid oconnell) <DANNI Clemente Last Filed: 07/31/25 15:37> Results Labs Result diagrams: 07/31/25 10:44 07/31/25 10:44 <DANNI Clemente Last Filed: 07/31/25 15:37> Labs: Abnormal lab results 07/31/25 07/31/25 07/31/25 Range/Units 10:43 10:44 11:49 RBC 3.32 L (4.20-5.50) X10*6/uL Hgb 7.8 L D (12.0-16.0) g/dl Hct 25.8 L D (37.0-47.0) % MCV 77.7 L (80.0-98.0) fL MCH 23.5 L (27.0-33.0) pg MCHC 30.2 L (31.0-35.0) g/dl RDW 19.2 H (11.0-16.0) % Lymph % (Auto) 13.6 L (20-40) % Lymph # (Auto) 0.9 L (1.2-4.9) X10*3/uL ESR 25 H (0-20) MM/HR Potassium 2.8 L* D (3.3-5.1) mmol/L BUN 86 H (9-16) mg/dL Creatinine 1.69 H (0.5-1.4) mg/dL Troponin I High Sens 29.6 H (<3.5-17.0) ng/L Urine Blood Trace H (Negative) Ur Leukocyte Esterase Large (3+) H (Negative) Urine WBC >50 H (0-5) /HPF Short CBC 07/31/25 Range/Units 10:44 WBC 6.7 (4.8-10.8) X10*3/uL Hgb 7.8 L D (12.0-16.0) g/dl Hct 25.8 L D (37.0-47.0) % Plt Count 290 D (160-400) X10*3/uL BMP 07/31/25 10:44 Sodium 137 Potassium 2.8 L* D Chloride 103 Carbon Dioxide 23 BUN 86 H Creatinine 1.69 H Calcium 8.9 Liver Function 07/31/25 Range/Units 10:44 Total Bilirubin 0.4 (0.0-1.0) mg/dL AST 27 (5-31) U/L ALT 10 (0-31) U/L Alkaline Phosphatase 76 (39-117) U/L Albumin 3.6 (3.5-5.0) g/dL Urine 07/31/25 Range/Units 11:49 Urine Color Yellow Urine Appearance Cloudy Urine pH 6.0 (5.0-9.0) Ur Specific [place] 1.010 (1.005-1.025) Urine Protein Trace (Neg-Trace) mg/dL Urine Glucose (UA) Negative (Negative) mg/dL All other labs normal. <Noe Kong PA-C - Last Filed: 07/31/25 15:37> Assessment and Plan (1) Cellulitis of right foot: Status: Acute <Noe Kong PA-C - Last Filed: 07/31/25 15:37> 89 year female with a multiple medical problems including CHF, coronary artery disease, hypertension, aortic stenosis Has skin necrosis of the tip of all 5 toes on the right Has chronic edema of both lower extremities May need at least debridement of all toes, with possible TMA/BKA We will consult vascular surgery as well in view of the likelihood of peripheral arterial disease We will need good wound care The patient lives alone and seems to have limited capability for self-care We will follow Seen and examined independently <Stevo Pryor MD - Last Filed: 07/31/25 15:47> (2) Bilateral lower extremity edema: Status: Acute <Noe Kong PA-C - Last Filed: 07/31/25 15:37> 89 year old female with a history of PAD, HTN, LVH, HFpEF, hypothyroid, CAD, Aortic stenosis, s/p right femoral endarterectomy with Dr Rayo in may 2020 seen in consult for necrotic wounds of the toes on bilatereral feet. Patient is been experiencing worsening wounds of the feet for about 6 months. Has acutely worsened over the last 2 weeks, she presented to the ED after her visiting nurse recommended that she seek further treatment. Currently She has a significant pain in the lower extremities, there was cellulitis on the right extending to the mid [place], the plantar aspect of the toes of the right foot are necrotic with surrounding macerated tissue likely due to the weeping from her lower extremity edema. There was a fluid collection that appears to be edema on the dorsum of the right foot. On the left foot there is necrosis of the plantar aspect of the 3rd toe with some associated localized cellulitis and tenderness. There was no appreciable active purulent drainage over there is some malodor. In the ED she was found to be newly anemic, with HERMINIO, hypokalemia which was repleted. She was started on IV ceftriaxone and vancomycin. X-ray showing soft tissue swelling, vascular calcifications, no evidence of osteomyelitis. We may need MRI to rule out osteomyelitis of this area. Given her comorbidities and frailty I am unsure if this patient would be a good surgical candidate however she will likely need extensive debridement of this area given the extent of the necrosis in the toes. We will consult vascular surgery to whom this patient is well-known, to evaluate the extent of her lower extremity vascular compromise. Continue IV vanco and ceftriaxone Medical management per hospitalist team Vascular consult pending, we will coordinate plan once vascular has seen. MRI to rule out osteo? <Noe Kong PA-C - Last Filed: 07/31/25 15:37> Procedures Date of Service Date of Service: 07/31/25 <Noe Kong PA-C - Last Filed: 07/31/25 15:37> 07/31/25 <Stevo Pryor MD - Last Filed: 07/31/25 15:47>
[2025-07-31] MEDS: Lactated Ringers 500 ML 999 ML IV (15:06)
--- NOTE | 2025-07-31 15:08 | HO.NURTONUR ---
BIBA right foot pain. Pt has longstanding cellulitis in right foot. Pain is currently 10/10, just took Tylenol. Takes Tramadol at home. IV left wrist 22G, right AC 20G. Alert and oriented x4. Uses walker at home. Administered Vanco, Pip/Errol, Rocephin. BP slightly low, pt on room air.
[2025-07-31 15:20] LABS: Reticulocytes Absolute 0.051 X10*6/uL (0.026-0.095)
[2025-07-31 15:46] LABS: Iron 15 mcg/dL (30-160); Percent Iron Saturation 5 % (15-50); Total Iron Binding Capacity 299 mcg/dL (228-428); Unsaturated Iron Binding 284 ug/dL
[2025-07-31 15:51] VITALS: BMI 17.9
[2025-07-31 15:56] LABS: Ferritin 24 ng/mL (10-250)
[2025-07-31 15:59] VITALS: BP 133/68; PULSE 88; RESP 16; TEMP 36.4; O2SAT 100
[2025-07-31 16:10] LABS: Folate 9.2 ng/mL (> or = 4.0); Vitamin B12 430 pg/mL (200-900)
[2025-07-31] MEDS: 0.9 % Sodium Chloride Flush 3 ML SYRINGE IVFLUSH ×2 (16:16→19:50)
--- NOTE | 2025-07-31 17:39 | HO.SKINPHOTO ---
Location: bilateral buttocks Category: pressure Stage: I Length: Width: Depth: cm Location: coccyx Category: pressure Stage: II Length: Width: Depth: cm Location: right toes Category: Stage: Length: Width: Depth: cm Location: right toes - under foot Category: Stage: Length: Width: Depth: cm Location: Category: Stage: Length: Width: Depth: cm Location: Category: Stage: Length: Width: Depth: cm
[2025-07-31 19:07] VITALS: BP 119/54; PULSE 92; RESP 16; TEMP 36.8; O2SAT 99
[2025-07-31 21:22] LABS: Potassium 3.7 mmol/L (3.3-5.1)
[2025-08-01 03:04] VITALS: BP 108/54; PULSE 88; RESP 18; TEMP 36.1; O2SAT 94
[2025-08-01 06:14] LABS: MANUAL DIFF FLAG NO
[2025-08-01 06:22] LABS: Hematocrit 25.2 % (37.0-47.0); Hemoglobin 7.6 g/dl (12.0-16.0); Imm Gran Abs Auto 0.02 X10*3/uL (0.00-0.03); Imm Gran Pct Auto 0.3 % (0.0-0.4); Lymphocytes Absolute Auto 0.6 X10*3/uL (1.2-4.9); Mean Corpuscular HGB Conc 30.2 g/dl (31.0-35.0); Mean Corpuscular Hemoglobin 23.4 pg (27.0-33.0); Mean Corpuscular Volume 77.5 fL (80.0-98.0); NRBC Abs Auto 0.000 X10*3/uL (0.0-0.012); NRBC Pct Auto 0.0 /100WBC (0.0-0.2); Platelet Count 249 X10*3/uL (160-400); Red Blood Count 3.25 X10*6/uL (4.20-5.50); White Blood Count 6.4 X10*3/uL (4.8-10.8)
[2025-08-01 06:34] LABS: Anion Gap 16 (12-20); Blood Urea Nitrogen 65 mg/dL (9-16); Calcium 8.3 mg/dL (8.4-10.2); Carbon Dioxide 21 mmol/L (22-29); Chloride 109 mmol/L (96-108); Creatinine Clr Calc Pharmacy 19.6; Estimated Glomerular Filt Rate 33; Magnesium 2.0 mg/dL (1.6-2.6); Potassium 3.8 mmol/L (3.3-5.1); Sodium 142 mmol/L (135-145)
[2025-08-01 07:55] VITALS: BP 122/63; PULSE 94; RESP 12; TEMP 36.1; O2SAT 97
--- NOTE | 2025-08-01 08:00 | ECG_ITS ---
Test Reason : ck rhythm Blood Pressure : */* mmHG Vent. Rate : 90 BPM Atrial Rate : 90 BPM P-R Int : 142 ms QRS Dur : 118 ms QT Int : 388 ms P-R-T Axes : 97 -38 86 degrees QTcB Int : 474 ms Sinus rhythm with occasional Premature ventricular complexes Left axis deviation Pulmonary disease pattern Non-specific intra-ventricular conduction delay Minimal voltage criteria for LVH, may be normal variant ( [place] product ) Nonspecific ST and T wave abnormality Abnormal ECG When compared with ECG of 31-Jul-2025 10:26, Premature ventricular complexes are now Present Referred By: Kamilah Saldana Electronically Signed By: Paul Sharif
[2025-08-01] MEDS: Metoprolol Succinate ER 50 MG TAB.ER.24H PO (08:24)
[2025-08-01] MEDS: Vitamin E (Dl,Tocopheryl Acet) 180 MG (400 UNIT) CAPSULE PO (08:24)
[2025-08-01] MEDS: Calcium + Vitamin D 250 MG TABLET 500 MG PO (08:24)
[2025-08-01] MEDS: 0.9 % Sodium Chloride Flush 3 ML SYRINGE IVFLUSH ×2 (09:04→16:31)
--- NOTE | 2025-08-01 09:24 | MHC.CM.PN ---
Addendum entered by Marnie Bansal 08/01/25 14:11: DP: HOSPICE SW IN TO SEE CM, DID HOSPICE INFORMATIONAL WITH PT/SON WHO ARE AGREEABLE TO HOSPICE AT HOME ON DC. [facility] FOLLOWING. CM WILL CONTINUE TO FOLLOW FOR ANY CHANGE TO PLAN. Original Note: [facility] DELIVERED PT LIVES ALONE AND HAS HOME-MAKING SERVICES VIA [employer]. PT DOES OWN COOKING. PT USES A ROLLATOR FOR MOBILITY AND HAS A MODIFIED BR. SON TAYLOR AT BEDSIDE AND WILL BRING IN COPY OF HCP ). PCP DR. ALBRECHT AT [facility] [place]. DP: PT'S GOAL IS HOME WITH NEW [facility], DECLINING STR AT THIS TIME. REFERRAL SENT TO [facility]. PT'S SON WILL TRANSPORT. CM WILL CONTINUE TO FOLLOW FOR ANY CHANGE TO DC PLAN/NEEDS.
--- NOTE | 2025-08-01 10:01 | MHC.CLN ---
PT WITH INCREASED NUTRITION RISK R/T PRESSURE INJURY CARDIAC DIET IN PLACE RECOMMEND ADDING ENSURE BID TO PROMOTE WOUND HEALING SUPP TO PROVIDE 700KCALS, 40G PROTEIN NOTED BMI 17.9 ALTHOUGH PT WITH 6% NONSIGNIFICANT WT LOSS X1 YEAR FULL ASSESSMENT TO FOLLOW
--- NOTE | 2025-08-01 11:25 | CONS_ITS ---
DATE OF SERVICE: 08/01/2025 REFERRING PHYSICIAN: Mga Hickey MD REASON FOR CONSULTATION: Anemia. HISTORY OF PRESENT ILLNESS: The patient is a pleasant 89-year-old woman, who is admitted to the hospital after presenting to the emergency department yesterday with complaints of lower leg and feet infection, previously treated with antibiotics. She was evaluated in the emergency department and found to have a hematocrit of 25.8 with a low MCV. Further testing included iron studies showing a saturation of 5% consistent with iron-deficiency anemia. No stool testing for occult blood was done. PAST MEDICAL HISTORY: The patient has a history of cellulitis, kidney injury, antibiotics-associated diarrhea, hypothyroidism, coronary artery disease, aortic stenosis, hypertension, and hyperlipidemia. She was evaluated previously with upper endoscopy, which was done by Dr. Mccoy on November 26, 2010 because of a history of [place] esophagus. She underwent endoscopy with findings including a hiatal hernia and biopsies at that time showed no evidence of malignancy. Previous colonoscopy was done in 2001 showing diverticulosis and internal hemorrhoids. We reviewed this today. CURRENT MEDICATIONS: Her current medication list is reviewed in the chart. ALLERGIES: THERE ARE NONE REPORTED BY THE PATIENT. FAMILY HISTORY: This is reviewed with the patient and is noncontributory. SOCIAL HISTORY: There is no current tobacco, alcohol, or substance abuse. REVIEW OF SYSTEMS: SKIN: No pruritus. HEENT: Negative. CARDIOPULMONARY: No shortness of breath or chest pain. GASTROINTESTINAL: As above. GENITOURINARY: Negative. NEUROPSYCHIATRIC: Negative. PHYSICAL EXAMINATION: GENERAL: Shows a pleasant female, lying comfortably in bed. VITAL SIGNS: Reviewed in the electronic medical record and are stable. SKIN: Anicteric. HEENT: Shows no scleral icterus. NECK: Without lymphadenopathy or thyromegaly. LUNGS: Clear. HEART: Shows regular rate and rhythm. S1, S2. No murmur. ABDOMEN: Soft without focal masses or tenderness. Bowel sounds are present. No organomegaly is noted. EXTREMITIES: Without edema. LABORATORY DATA AND IMAGING STUDIES: Reviewed. IMPRESSION: Anemia. Her anemia appears consistent with iron deficiency. She has no signs of GI bleeding. I discussed this with her. I would recommend the iron supplementation and monitoring her hematocrit. Further evaluation with colonoscopy and endoscopy could be obtained; however, the patient declines this at this time. Thanks for asking me to see her. I will follow her in the hospital with you. MD MARY Maki/ERMIAS / [phone]
--- NOTE | 2025-08-01 12:01 | HO.WOUND ---
Wound Consult: Initial 89 yr old female admitted to [facility] on 07/31/25- See progress notes and H&P for detailed history. Wound consult placed for coccyx/buttocks and right foot. Patient agreeable to assessment and photo documentation. Mor lives at home, reports walking around barefoot due to pain with putting on shoes/socks, reports using sanitary pads to catch drainage to right foot. Pending vascular consult (patient with history of vascular procedure in 2019). Etiology: Coccyx stage 2 Present on Admission , bilateral buttocks stage 1 resolving present on admission. Measurements: 0.5cm x 0.5cm x 0.1cm Wound Bed: coccyx- moist pink/red with moist callus superior. bilateral buttocks with intact slowly blanching redness, left greater than right. right buttock with area of pale pink skin, possible healed skin injury, patient denies previous wounds Drainage / Odor: none Edges: ? open Jass wound: ? No Induration, Fluctuance or Warmth noted Pain: none Goals of Treatment: ? offloading and pressure redistribution, moist healing with foam Left dorsal and plantar foot/ toes Etiology: Deflated blood blisters Wound Bed: dry red/maroon Drainage / Odor: none Jass wound: ? No Induration, Fluctuance or Warmth noted Pain: mild Goals of Treatment: ?maintain dry clean skin with betadine Right foot Etiology: arterial wounding Wound Bed: largely dry black eschar, noted with moist yellow between toes and under toes Drainage / Odor: small yellow drainage, malodorous Edges: ? irregular Jass wound: ? No Induration, Fluctuance or Warmth noted, swelling noted to dorsal foot, redness noted jass wound Pain: moderate pain noted Goals of Treatment: ? maintain dry wound bed with betadine followed by durafiber to absorb drainage Recommendations: 1. Turn and Reposition every 2 hours and as needed for patient comfort. Use pillows or wedges to support off loading positions. 2. Off Load all bony prominences with use of pillows and heel boots if needed. Apply Preventative foams where needed. 3. Monitor for incontinence and moisture control, use barrier creams when needed for prevention and treatment. 4. Provide adequate and supplemental nutrition. 5. Order or Continue low air loss mattress. 6. When applicable maintain blood glucose levels per Providers order. Right foot/toes: paint with betadine, apply durafiber ag to any open/moist areas between toes and plantar foot, wrap with gauze, change daily and PRN. Pending vascular consult, may defer to vascular once seen. Left toes: paint any eschar with betadine daily and PRN. Coccyx/buttocks: Off Load Pressure with Q2 hr turns and use of pillows - Routine cleansing. Apply skin prep allow to dry. Cover with foam dressing to aid in off loading and protection from friction. Change every 3 days and PRN. Re-consult wound care Nurse for wound deterioration or wound changes.
[2025-08-01 15:01] LABS: OBS Int Ctl Valid YES; OBS1 NEGATIVE (NEGATIVE)
--- NOTE | 2025-08-01 15:03 | HO.PM.IMCN ---
History of Present Illness Data of Consult Primary Care Provider: Tk Nelson MD [facility] Medical History Essential hypertension Acquired hypothyroidism Hyperlipidemia CAD (coronary artery disease) HTN (hypertension) (HFpEF) heart failure with preserved ejection fraction Aortic stenosis PAD (peripheral artery disease) Wound infection Family History Father CAD (coronary artery disease) Throat cancer Stroke Mother No problems noted. Son No problems noted. 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 Hx of salpingo-oophorectomy, bilateral History of cataract surgery History of bladder suspension procedure H/O arthroscopy of right knee H/O partial resection of colon H/O rectocele repair History of cystocele History of hysterectomy Social History Household Members: None Housing: Apartment Do you presently have visiting nurse or other home services: Yes ([facility] services) Alcohol intake: former Patient Tobacco Use Status: Former Tobacco user e-Cigarette/Vaping Use: Never Used Second Hand Smoke Exposure: Yes service: No Current occupational status: retired Cognitive needs: Yes (walker) Hearing needs: No Vision needs: Yes (glasses) Meds Allergies Allergy/AdvReac Type Severity Reaction Status Date / Time aspirin (Aspirin) Allergy Mild ACID Verified 07/31/25 10:18 REFLUX, gi upset ciprofloxacin (From CIPRO) Allergy Unknown RASH Verified 07/31/25 10:18 Sulfa (Sulfonamide Allergy Unknown DIZZINESS Verified 07/31/25 10:18 Antibiotics) (SULFA (SULFONAMIDE ANTIBIOTICS)) Active Medications: Current Medications Acetaminophen (Acetaminophen 325 Mg Tablet) 975 mg PO Q6H PRN PRN Reason: Pain, Mild 1-3,fever,headache Last Admin: 08/01/25 06:40 Dose: 975 mg Albuterol Sulfate (Albuterol Sulfate 90 Mcg 8 Gm Inhaler) 2 puff INHALE Q4H PRN PRN Reason: bronchospasm Atorvastatin Calcium (Atorvastatin Calcium 20 Mg Tablet) 20 mg PO DAILY NADIA Last Admin: 08/01/25 08:24 Dose: 20 mg Calcium Carbonate (Calcium Carbonate 750 Mg Tab.Chew) 750 mg PO Q4H PRN PRN Reason: Heartburn Calcium Carbonate/Cholecalciferol (Calcium + Vitamin D 250 Mg Tablet) 500 mg PO DAILY [facility] Last Admin: 08/01/25 08:24 Dose: 500 mg Heparin Sodium (Porcine) (Heparin Sodium,Porcine 5,000 Unit/Ml Vial) 5,000 unit SUBCUT Q12H [facility] Last Admin: 08/01/25 08:24 Dose: 5,000 unit Vancomycin HCl 500 mg/ Sodium (Chloride) 110 mls @ 110 mls/hr IV Q24H [facility] Last Infusion: 08/01/25 12:43 Dose: Infused Piperacillin Sod/Tazobactam (Sod 2.25 gm/ Sodium Chloride) 50 mls @ 100 mls/hr IV Q8H [facility] Levothyroxine Sodium (Levothyroxine Sodium 88 Mcg Tablet) 88 mcg PO DAILY@0600 [facility] Last Admin: 08/01/25 06:13 Dose: 88 mcg Magnesium Hydroxide (Milk Of Magnesia 30 Ml Oral.Susp) 30 ml PO DAILY PRN PRN Reason: Constipation Melatonin (Melatonin 3 Mg Tablet) 6 mg PO BEDTIME PRN PRN Reason: Insomnia Metoprolol Succinate (Metoprolol Succinate Er 50 Mg Tab.Er.24h) 50 mg PO DAILY [facility]; Protocol Last Admin: 08/01/25 08:24 Dose: 50 mg Pantoprazole Sodium (Pantoprazole Sodium 40 Mg/10 Ml Vial) 40 mg IVPUSH BID@0630,1630 [facility] Last Admin: 08/01/25 06:14 Dose: 40 mg Pharmacy Consult (Consult Rx Vancomycin Dosing) 1 each MISCELLANE DAILY PRN PRN Reason: Consult order Sodium Chloride (0.9 % Sodium Chloride Flush 3 Ml Syringe) 3 ml IVFLUSH QSHIFT [facility] Last Admin: 08/01/25 09:04 Dose: 3 ml Tramadol HCl (Tramadol Hcl 50 Mg Tablet) 50 mg PO BEDTIME PRN PRN Reason: severe pain Tramadol HCl (Tramadol Hcl 50 Mg Tablet) 25 mg PO Q8H PRN PRN Reason: Pain, Severe (Pain Scale 7-10) Last Admin: 08/01/25 10:59 Dose: 25 mg Vitamin E (Vitamin E (Dl,Tocopheryl Acet) 180 Mg (400 Unit) Capsule) 180 mg PO DAILY [facility] Last Admin: 08/01/25 08:24 Dose: 180 mg Home Medications ?Medication ?Instructions ?Recorded ?Confirmed ?Last Taken ?Type calcium 600 mg (as 1 cap PO DAILY 08/06/20 07/31/25 07/30/25 History carbonate)-vitamin D3 5 mcg (200 unit) capsule (Calcium 600 + D(3)) vitamin E (dl, acetate) 180 mg 400 unit PO DAILY 08/06/20 07/31/25 07/30/25 History (400 unit) capsule bumetanide 1 mg tablet 1 mg PO DAILY@1200 07/31/25 07/31/25 07/30/25 History bumetanide 1 mg tablet 2 mg PO DAILY 07/31/25 07/31/25 07/31/25 History levothyroxine 88 mcg tablet 88 mcg PO DAILY@0600 07/31/25 07/31/25 07/31/25 History Physical Exam Vital Signs and Narrative: Vital Signs: Last Vital Signs Temp 96.9 F 08/01/25 07:55 Pulse 94 08/01/25 07:55 Resp 12 08/01/25 07:55 BP 122/63 08/01/25 07:55 Pulse Ox 97 08/01/25 07:55 O2 Del Method Room Air 08/01/25 07:55 BMI result Body Mass Index 17.9 Results Labs 08/01/25 05:37 08/01/25 05:37 Labs: Laboratory Results - last 24 hr 07/31/25 07/31/25 08/01/25 10:44 15:13 05:37 MCV 77.5 L MCH 23.4 L MCHC 30.2 L RDW 19.4 H Plt Count 249 MPV 9.7 Immature Gran % (Auto) 0.3 Neut % (Auto) 79.0 H Lymph % (Auto) 9.1 L [place] % (Auto) 9.7 Eos % (Auto) 1.3 Baso % (Auto) 0.6 Lymph # (Auto) 0.6 L [place] # (Auto) 0.6 Eos # (Auto) 0.1 Baso # (Auto) 0.0 Abs Immat Gran (auto) 0.02 Absolute Neuts (auto) 5.1 Absolute Nucleated RBC 0.000 Nucleated RBC % (auto) 0.0 Absolute Retic 0.051 Percent Retic 1.4 Immature Retic Fraction 24.5 H Retic Hgb Equivalent 24.3 L Anion Gap 16 Estim Creat Clear Calc 19.6 Estimated GFR 33 Random Glucose 92 Calcium 8.3 L D Magnesium 2.0 Iron 15 L TIBC 299 % Saturation 5 L Unsat Iron Binding 284 Ferritin 24 C-Reactive Protein 1.90 H Vitamin B12 430 Folate 9.2 Stool Occult Blood 08/01/25 14:25 MCV MCH MCHC RDW Plt Count MPV Immature Gran % (Auto) Neut % (Auto) Lymph % (Auto) [place] % (Auto) Eos % (Auto) Baso % (Auto) Lymph # (Auto) [place] # (Auto) Eos # (Auto) Baso # (Auto) Abs Immat Gran (auto) Absolute Neuts (auto) Absolute Nucleated RBC Nucleated RBC % (auto) Absolute Retic Percent Retic Immature Retic Fraction Retic Hgb Equivalent Anion Gap Estim Creat Clear Calc Estimated GFR Random Glucose Calcium Magnesium Iron TIBC % Saturation Unsat Iron Binding Ferritin C-Reactive Protein Vitamin B12 Folate Stool Occult Blood NEGATIVE
--- NOTE | 2025-08-01 15:15 | HO.PM.IMPN ---
Subjective Subjective Date of Service: 08/01/25 Interval History: seen and examined this morning follow up for anemia, b/l foot nectosis reporting foot pain r>L does not think she wants any surgical intervention denies fever or chills Review of Systems Review of Systems: Yes all other systems are reviewed and are negative Constitutional Constitutional: Denies chills and Denies fever(s) Physical Exam Vital Signs: Vital Signs: Last Vital Signs Temp 96.9 F 08/01/25 07:55 Pulse 94 08/01/25 07:55 Resp 12 08/01/25 07:55 BP 122/63 08/01/25 07:55 Pulse Ox 97 08/01/25 07:55 O2 Del Method Room Air 08/01/25 07:55 BMI result Body Mass Index 17.9 Const: General: cooperative, comfortable, alert and awake Nutritional Appearance: thin Orientation/consciousness: patient oriented x3 Resp: Effort & Inspection: normal respiratory effort, able to speak in complete sentences, no respiratory distress and no use of accessory muscles Cardio: Rate: regular rate Heart sounds: Murmur heart sound present systolic GI: Palpation (GI): Soft to palpation and nontender Skin: Other: necrosis right foot involving all five toes; unchanged from admission picture; erythema and edema of right foot and ankle necrosis left foot necrosis of third toe Neuro: General: patient oriented x3, moves all extremities and CN's II-XI intact bilaterally Objective Data Active Medications Acetaminophen (Acetaminophen 325 Mg Tablet) 975 mg PO Q6H PRN PRN Reason: Pain, Mild 1-3,fever,headache Last Admin: 08/01/25 06:40 Dose: 975 mg Documented By: GERARDO Albuterol Sulfate (Albuterol Sulfate 90 Mcg 8 Gm Inhaler) 2 puff INHALE Q4H PRN PRN Reason: bronchospasm Atorvastatin Calcium (Atorvastatin Calcium 20 Mg Tablet) 20 mg PO DAILY [facility] Last Admin: 08/01/25 08:24 Dose: 20 mg Documented By: KESHIA Calcium Carbonate (Calcium Carbonate 750 Mg Tab.Chew) 750 mg PO Q4H PRN PRN Reason: Heartburn Calcium Carbonate/Cholecalciferol (Calcium + Vitamin D 250 Mg Tablet) 500 mg PO DAILY [facility] Last Admin: 08/01/25 08:24 Dose: 500 mg Documented By: KESHIA Heparin Sodium (Porcine) (Heparin Sodium,Porcine 5,000 Unit/Ml Vial) 5,000 unit SUBCUT Q12H [facility] Last Admin: 08/01/25 08:24 Dose: 5,000 unit Documented By: KESHIA Vancomycin HCl 500 mg/ Sodium (Chloride) 110 mls @ 110 mls/hr IV Q24H [facility] Last Infusion: 08/01/25 12:43 Dose: Infused Documented By: RODRIGUEZ Piperacillin Sod/Tazobactam (Sod 2.25 gm/ Sodium Chloride) 50 mls @ 100 mls/hr IV Q8H [facility] Levothyroxine Sodium (Levothyroxine Sodium 88 Mcg Tablet) 88 mcg PO DAILY@0600 [facility] Last Admin: 08/01/25 06:13 Dose: 88 mcg Documented By: HARMAN Magnesium Hydroxide (Milk Of Magnesia 30 Ml Oral.Susp) 30 ml PO DAILY PRN PRN Reason: Constipation Melatonin (Melatonin 3 Mg Tablet) 6 mg PO BEDTIME PRN PRN Reason: Insomnia Metoprolol Succinate (Metoprolol Succinate Er 50 Mg Tab.Er.24h) 50 mg PO DAILY [facility]; Protocol Last Admin: 08/01/25 08:24 Dose: 50 mg Documented By: KESHIA Pantoprazole Sodium (Pantoprazole Sodium 40 Mg/10 Ml Vial) 40 mg IVPUSH BID@0630,1630 [facility] Last Admin: 08/01/25 06:14 Dose: 40 mg Documented By: HARMAN Pharmacy Consult (Consult Rx Vancomycin Dosing) 1 each MISCELLANE DAILY PRN PRN Reason: Consult order Sodium Chloride (0.9 % Sodium Chloride Flush 3 Ml Syringe) 3 ml IVFLUSH QSHIFT [facility] Last Admin: 08/01/25 09:04 Dose: 3 ml Documented By: KESHIA Tramadol HCl (Tramadol Hcl 50 Mg Tablet) 50 mg PO BEDTIME PRN PRN Reason: severe pain Tramadol HCl (Tramadol Hcl 50 Mg Tablet) 25 mg PO Q8H PRN PRN Reason: Pain, Severe (Pain Scale 7-10) Last Admin: 08/01/25 10:59 Dose: 25 mg Documented By: KESHIA Vitamin E (Vitamin E (Dl,Tocopheryl Acet) 180 Mg (400 Unit) Capsule) 180 mg PO DAILY [facility] Last Admin: 08/01/25 08:24 Dose: 180 mg Documented By: KESHIA Labs 08/01/25 05:37 08/01/25 05:37 Labs: Laboratory Results - last 24 hr 07/31/25 08/01/25 08/01/25 15:13 05:37 14:25 MCV 77.5 L MCH 23.4 L MCHC 30.2 L RDW 19.4 H Plt Count 249 MPV 9.7 Immature Gran % (Auto) 0.3 Neut % (Auto) 79.0 H Lymph % (Auto) 9.1 L [place] % (Auto) 9.7 Eos % (Auto) 1.3 Baso % (Auto) 0.6 Lymph # (Auto) 0.6 L [place] # (Auto) 0.6 Eos # (Auto) 0.1 Baso # (Auto) 0.0 Abs Immat Gran (auto) 0.02 Absolute Neuts (auto) 5.1 Absolute Nucleated RBC 0.000 Nucleated RBC % (auto) 0.0 Absolute Retic 0.051 Percent Retic 1.4 Immature Retic Fraction 24.5 H Retic Hgb Equivalent 24.3 L Anion Gap 16 Estim Creat Clear Calc 19.6 Estimated GFR 33 Random Glucose 92 Calcium 8.3 L D Magnesium 2.0 Iron 15 L TIBC 299 % Saturation 5 L Unsat Iron Binding 284 Ferritin 24 Vitamin B12 430 Folate 9.2 Stool Occult Blood NEGATIVE Microbiology Microbiology Results: Microbiology 07/31/25 10:43 Blood Culture - Preliminary Blood - Venous No growth after 24 hours. 07/31/25 10:43 Blood Culture - Preliminary Blood - Venous No growth after 24 hours. 07/31/25 Unknown Urine Culture - Preliminary Urine clean catch - Clean Catch Midstream Culture in progress. Assessment and Plan (1) Aortic stenosis: Status: Acute (2) Cellulitis of right foot: Status: Acute Plan This is 89 y/o woman with a PMHx significant for the PAD who presents with. Right foot cellulitis with multiple necrotic toes. Continue vancomycin and Zosyn. Blood cultures pending unable to tolerate foot MRI seen by general surgery seen by vascular surgery - arterial studies pending will likely need TMA vs BKA given extent of foot involvement - patient unsure if she wants to persue surgery. plan for arterial studies and further discussion re: surgery based on outcome would likely need hospice if no surgery planned as antibiotics alone not likely to be adequate treatment Acute kidney injury. Likely secondary to bumetanide and losartan; hold this for now. LR 500 ml bolus. Continue to monitor renal function. Avoid nephrotoxic agents. trend BMP Urinary tract infection. Empiric IV antibiotic therapy with Zosyn. Follow urine culture Worsening anemia over the last 6 months Hbg 10.7 --> 7.8. Check anemia workup. Pantoprazole 40 mg IV b.i.d.. seen by GI, c/w iron deficiency, patient declined EGD or colonoscopy Overt GI bleeding. Start oral iron supplementation Trend CBC Hypokalemia. Likely secondary to bumetanide; hold for now. Received 40 mEq of KCl in the ED. replete as needed. Continue to monitor Essential hypertension. Losartan on hold due to HERMINIO. Continue metoprolol. Continue to monitor BP for now. Hypothyroidism. Continue levothyroxine. Hyperlipidemia. Continue statin. Aortic stenosis, severe. Patient has been refusing surgery. Mild Intermittent asthma. No acute exacerbation Continue albuterol as needed. CAD. S/p CABG. Continue statin. Aspirin on hold. stage two pressure injury coccyx. poa management as per wound care Code status: Full - given age and current acute medical issues,will likely need to address code status. was seen by hospice team inpatient and patient plans to transition to hospice after discharge DVT prophylaxis: Heparin Requires ongoing inpatient stay for right foot cellulitis associated with multiple toes with necrotic tissue treatment with IV antibiotics and prompt evaluation by surgery. Quality Stroke Does the patient have a stroke diagnosis?: No VTE Prior VTE?: No VTE Risk Level:: Medical - moderate - high VTE Device Contraindication: Treatment Not Indicated VTE Drug Contraindication: N/A - Med Ordered
--- NOTE | 2025-08-01 15:34 | P.PNGS_ITS ---
Subjective Subjective Date of Service: 08/01/25 <Noe Kong PA-C - Last Filed: 08/01/25 16:55> 08/02/25 <Stevo Pryor MD - Last Filed: 08/02/25 15:43> Interval history: still having pain in the lower legs/feet, worse in the right. Denies fevers or chills. <Noe Kong PA-C - Last Filed: 08/01/25 16:55> Physical Exam 2 Vital Signs: Vital Signs: Last Vital Signs Temp 96.9 F 08/01/25 07:55 Pulse 94 08/01/25 07:55 Resp 12 08/01/25 07:55 BP 122/63 08/01/25 07:55 Pulse Ox 97 08/01/25 07:55 O2 Del Method Room Air 08/01/25 07:55 BMI result Body Mass Index 17.9 <Noe Kong PA-C - Last Filed: 08/01/25 16:55> Const: General: comfortable and no acute distress <Noe Kong PA-C - Last Filed: 08/01/25 16:55> Orientation/consciousness: patient oriented x3 <Noe Kong PA-C - Last Filed: 08/01/25 16:55> Resp: Effort & Inspection: normal respiratory effort and able to speak in complete sentences <DANNI Clemente Last Filed: 08/01/25 16:55> Neuro: General: patient oriented x3 <Noe Kong PA-C - Last Filed: 08/01/25 16:55> Extrem: Other: Right lower extremity: Necrosis of the plantar aspect of all 5 toes with significant macerated tissue extending through the metatarsals. Tender to the touch. Malodorous. Cellulitis extending to mid [place]. There was a large fluid collection on the dorsum of the right foot Left lower extremity: Mild necrosis of the 3rd toe. Localized cellulitis surrounding toes <DANNI Clemente Last Filed: 08/01/25 16:55> Objective Data Active Medications Acetaminophen (Acetaminophen 325 Mg Tablet) 975 mg PO Q6H PRN PRN Reason: Pain, Mild 1-3,fever,headache Last Admin: 08/01/25 06:40 Dose: 975 mg Documented By: GERARDO Albuterol Sulfate (Albuterol Sulfate 90 Mcg 8 Gm Inhaler) 2 puff INHALE Q4H PRN PRN Reason: bronchospasm Atorvastatin Calcium (Atorvastatin Calcium 20 Mg Tablet) 20 mg PO DAILY [facility] Last Admin: 08/01/25 08:24 Dose: 20 mg Documented By: KESHIA Calcium Carbonate (Calcium Carbonate 750 Mg Tab.Chew) 750 mg PO Q4H PRN PRN Reason: Heartburn Calcium Carbonate/Cholecalciferol (Calcium + Vitamin D 250 Mg Tablet) 500 mg PO DAILY [facility] Last Admin: 08/01/25 08:24 Dose: 500 mg Documented By: KESHIA Heparin Sodium (Porcine) (Heparin Sodium,Porcine 5,000 Unit/Ml Vial) 5,000 unit SUBCUT Q12H [facility] Last Admin: 08/01/25 08:24 Dose: 5,000 unit Documented By: KESHIA Vancomycin HCl 500 mg/ Sodium (Chloride) 110 mls @ 110 mls/hr IV Q24H [facility] Last Infusion: 08/01/25 12:43 Dose: Infused Documented By: RODRIGUEZ Piperacillin Sod/Tazobactam (Sod 2.25 gm/ Sodium Chloride) 50 mls @ 100 mls/hr IV Q8H [facility] Levothyroxine Sodium (Levothyroxine Sodium 88 Mcg Tablet) 88 mcg PO DAILY@0600 [facility] Last Admin: 08/01/25 06:13 Dose: 88 mcg Documented By: HARMAN Magnesium Hydroxide (Milk Of Magnesia 30 Ml Oral.Susp) 30 ml PO DAILY PRN PRN Reason: Constipation Melatonin (Melatonin 3 Mg Tablet) 6 mg PO BEDTIME PRN PRN Reason: Insomnia Metoprolol Succinate (Metoprolol Succinate Er 50 Mg Tab.Er.24h) 50 mg PO DAILY [facility]; Protocol Last Admin: 08/01/25 08:24 Dose: 50 mg Documented By: KESHIA Pantoprazole Sodium (Pantoprazole Sodium 40 Mg/10 Ml Vial) 40 mg IVPUSH BID@0630,1630 [facility] Last Admin: 08/01/25 06:14 Dose: 40 mg Documented By: HARMAN Pharmacy Consult (Consult Rx Vancomycin Dosing) 1 each MISCELLANE DAILY PRN PRN Reason: Consult order Sodium Chloride (0.9 % Sodium Chloride Flush 3 Ml Syringe) 3 ml IVFLUSH QSHIFT [facility] Last Admin: 08/01/25 09:04 Dose: 3 ml Documented By: KESHIA Tramadol HCl (Tramadol Hcl 50 Mg Tablet) 50 mg PO BEDTIME PRN PRN Reason: severe pain Tramadol HCl (Tramadol Hcl 50 Mg Tablet) 25 mg PO Q8H PRN PRN Reason: Pain, Severe (Pain Scale 7-10) Last Admin: 08/01/25 10:59 Dose: 25 mg Documented By: KESHIA Vitamin E (Vitamin E (Dl,Tocopheryl Acet) 180 Mg (400 Unit) Capsule) 180 mg PO DAILY [facility] Last Admin: 08/01/25 08:24 Dose: 180 mg Documented By: KESHIA <Noe Kong PA-C - Last Filed: 08/01/25 16:55> Labs CBC & Chem 7: 08/02/25 05:51 08/02/25 05:52 <Noe Kong PA-C - Last Filed: 08/01/25 16:55> Labs: Laboratory Results - last 24 hr 07/31/25 08/01/25 08/01/25 15:13 05:37 14:25 MCV 77.5 L MCH 23.4 L MCHC 30.2 L RDW 19.4 H Plt Count 249 MPV 9.7 Immature Gran % (Auto) 0.3 Neut % (Auto) 79.0 H Lymph % (Auto) 9.1 L [place] % (Auto) 9.7 Eos % (Auto) 1.3 Baso % (Auto) 0.6 Lymph # (Auto) 0.6 L [place] # (Auto) 0.6 Eos # (Auto) 0.1 Baso # (Auto) 0.0 Abs Immat Gran (auto) 0.02 Absolute Neuts (auto) 5.1 Absolute Nucleated RBC 0.000 Nucleated RBC % (auto) 0.0 Anion Gap 16 Estim Creat Clear Calc 19.6 Estimated GFR 33 Random Glucose 92 Calcium 8.3 L D Magnesium 2.0 Iron 15 L TIBC 299 % Saturation 5 L Unsat Iron Binding 284 Ferritin 24 Vitamin B12 430 Folate 9.2 Stool Occult Blood NEGATIVE <Noe Kong PA-C - Last Filed: 08/01/25 16:55> Microbiology Microbiology Results: Microbiology 07/31/25 10:43 Blood Culture - Preliminary Blood - Venous No growth after 24 hours. 07/31/25 10:43 Blood Culture - Preliminary Blood - Venous No growth after 24 hours. 07/31/25 Unknown Urine Culture - Preliminary Urine clean catch - Clean Catch Midstream Culture in progress. <Noe Kong PA-C - Last Filed: 08/01/25 16:55> Procedures Date of Service Date of Service: 08/01/25 <Noe Kong PA-C - Last Filed: 08/01/25 16:55> 08/02/25 <Stevo Pryor MD - Last Filed: 08/02/25 15:43> Progress Note: A&P Assessment and plan (1) Cellulitis of right foot: Status: Acute <Noe Kong PA-C - Last Filed: 08/01/25 16:55> Assessment and Plan: Awaiting vascular input Continue current wound care for toes May need debridement at some point Seen and examined independently <Stevo Pryor MD - Last Filed: 08/02/25 15:43> (2) Skin necrosis: Status: Acute <Noe Kong PA-C - Last Filed: 08/01/25 16:55> Assessment and Plan: 89 year old female with a history of PAD, HTN, LVH, HFpEF, hypothyroid, CAD, Aortic stenosis, s/p right femoral endarterectomy with Dr Rayo in may 2020 seen in consult for necrotic wounds of the toes on bilateral feet. She is still having pain in both lower extremities. There remains moderate edema of bilateral LE. She was sen by Dr. Rayo this afternoon who ordered noninvasive testing to asses her arterial status. the patient does not want to persue surgery unless absolutely necessary. She was seen by wound care who made recommendations for dressings while we await a formal decision on a care plan. We will continue to follow, plan pending noninvasive testing, vascular input. Daily wound care per wound recommendations non invasive arterial status testing pending recommend elevation of lower extremities to help with edema. <ANDREW Clemente - Last Filed: 08/01/25 16:55> Time Spent With Patient Time: Total time managing care of this patient today ____ minutes. <Noe Kong PA-C - Last Filed: 08/01/25 16:55> Quality Stroke Does the patient have a stroke diagnosis?: No <DANNI Clemente Last Filed: 08/01/25 16:55> VTE Prior VTE?: No <Noe Kong PA-C - Last Filed: 08/01/25 16:55> VTE Risk Level:: Medical - moderate - high <Noe Kong PA-C - Last Filed: 08/01/25 16:55> VTE Device Contraindication: Treatment Not Indicated <Noe Kong PA-C - Last Filed: 08/01/25 16:55> VTE Drug Contraindication: N/A - Med Ordered <Noe Kong PA-C - Last Filed: 08/01/25 16:55>
[2025-08-01 15:56] VITALS: BP 113/55; PULSE 67; RESP 18; TEMP 36.4; O2SAT 100
--- NOTE | 2025-08-01 16:14 | PM.CNGS ---
History of Present Illness Consult details Consult date: 08/01/25 Reason for consult: wound care Narrative: 89-year-old female with prior history of peripheral vascular disease. She had actually seen us back in 2019 and underwent right femoral endarterectomy on 04/30/2020. Nearly a month later she developed a bleed on 06/10/2020 and had to be taken back for reconstruction of that right femoral artery. Since that time she had been doing fairly well. She had last seen us on 09/30/2020 and then was subsequently lost to follow-up. She has developed nonhealing ulcers of the right lower extremity she does have a history of hypertension hyperlipidemia severe aortic stenosis. She has developed discoloration of all digits of her right lower extremity. Review of Systems Review of Systems: Yes all other systems are reviewed and are negative Constitutional: Constitutional: Reports no additional constitutional complaints ENT: Reports Normal hearing present Cardiovascular: Cardiovascular: Denies chest pain, Denies chest pain at rest, Denies chest pain with activity and Denies pedal edema Respiratory: Respiratory: Denies cough Gastrointestinal: Gastrointestinal: Denies abdominal pain Musculoskeletal: Musculoskeletal: Denies abnormal gait, Denies muscle cramps and Denies radiating pain into limb Integumentary/Breasts: Skin/Breast: Denies skin ulcer and Denies wounds Neurologic: Reports Normal hearing present and Denies abnormal gait Psychiatric: Psychiatric: Reports no additional psychiatric complaints [facility] Past Medical History Medical History (Updated 08/01/25 @ 16:19 by Zacarias Rayo MD) PAD (peripheral artery disease) Essential hypertension Acquired hypothyroidism Hyperlipidemia CAD (coronary artery disease) HTN (hypertension) (HFpEF) heart failure with preserved ejection fraction Aortic stenosis Wound infection Family History Family History Father CAD (coronary artery disease) Throat cancer Stroke Mother No problems noted. Son No problems noted. Surgical History 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 Hx of salpingo-oophorectomy, bilateral History of cataract surgery History of bladder suspension procedure H/O arthroscopy of right knee H/O partial resection of colon H/O rectocele repair History of cystocele History of hysterectomy Social History Social History Household Members: None Housing: Apartment Do you presently have visiting nurse or other home services: Yes ([facility] services) Alcohol intake: former Patient Tobacco Use Status: Former Tobacco user e-Cigarette/Vaping Use: Never Used Second Hand Smoke Exposure: Yes service: No Current occupational status: retired Cognitive needs: Yes (walker) Hearing needs: No Vision needs: Yes (glasses) Meds Allergies Allergy/AdvReac Type Severity Reaction Status Date / Time aspirin (Aspirin) Allergy Mild ACID Verified 07/31/25 10:18 REFLUX, gi upset ciprofloxacin (From CIPRO) Allergy Unknown RASH Verified 07/31/25 10:18 Sulfa (Sulfonamide Allergy Unknown DIZZINESS Verified 07/31/25 10:18 Antibiotics) (SULFA (SULFONAMIDE ANTIBIOTICS)) Active Medications: Current Medications Acetaminophen (Acetaminophen 325 Mg Tablet) 975 mg PO Q6H PRN PRN Reason: Pain, Mild 1-3,fever,headache Last Admin: 08/01/25 06:40 Dose: 975 mg Albuterol Sulfate (Albuterol Sulfate 90 Mcg 8 Gm Inhaler) 2 puff INHALE Q4H PRN PRN Reason: bronchospasm Atorvastatin Calcium (Atorvastatin Calcium 20 Mg Tablet) 20 mg PO DAILY [facility] Last Admin: 08/01/25 08:24 Dose: 20 mg Calcium Carbonate (Calcium Carbonate 750 Mg Tab.Chew) 750 mg PO Q4H PRN PRN Reason: Heartburn Calcium Carbonate/Cholecalciferol (Calcium + Vitamin D 250 Mg Tablet) 500 mg PO DAILY [facility] Last Admin: 08/01/25 08:24 Dose: 500 mg Ferrous Sulfate (Ferrous Sulfate 324 Mg Tablet.Dr) 324 mg PO DAILY [facility] Heparin Sodium (Porcine) (Heparin Sodium,Porcine 5,000 Unit/Ml Vial) 5,000 unit SUBCUT Q12H [facility] Last Admin: 08/01/25 08:24 Dose: 5,000 unit Vancomycin HCl 500 mg/ Sodium (Chloride) 110 mls @ 110 mls/hr IV Q24H [facility] Last Infusion: 08/01/25 12:43 Dose: Infused Piperacillin Sod/Tazobactam (Sod 2.25 gm/ Sodium Chloride) 50 mls @ 100 mls/hr IV Q8H [facility] Levothyroxine Sodium (Levothyroxine Sodium 88 Mcg Tablet) 88 mcg PO DAILY@0600 [facility] Last Admin: 08/01/25 06:13 Dose: 88 mcg Magnesium Hydroxide (Milk Of Magnesia 30 Ml Oral.Susp) 30 ml PO DAILY PRN PRN Reason: Constipation Melatonin (Melatonin 3 Mg Tablet) 6 mg PO BEDTIME PRN PRN Reason: Insomnia Metoprolol Succinate (Metoprolol Succinate Er 50 Mg Tab.Er.24h) 50 mg PO DAILY [facility]; Protocol Last Admin: 08/01/25 08:24 Dose: 50 mg Pantoprazole Sodium (Pantoprazole Sodium 40 Mg/10 Ml Vial) 40 mg IVPUSH BID@0630,1630 [facility] Last Admin: 08/01/25 06:14 Dose: 40 mg Pharmacy Consult (Consult Rx Vancomycin Dosing) 1 each MISCELLANE DAILY PRN PRN Reason: Consult order Sodium Chloride (0.9 % Sodium Chloride Flush 3 Ml Syringe) 3 ml IVFLUSH QSHIFT [facility] Last Admin: 08/01/25 09:04 Dose: 3 ml Tramadol HCl (Tramadol Hcl 50 Mg Tablet) 50 mg PO BEDTIME PRN PRN Reason: severe pain Tramadol HCl (Tramadol Hcl 50 Mg Tablet) 25 mg PO Q8H PRN PRN Reason: Pain, Severe (Pain Scale 7-10) Last Admin: 08/01/25 10:59 Dose: 25 mg Vitamin E (Vitamin E (Dl,Tocopheryl Acet) 180 Mg (400 Unit) Capsule) 180 mg PO DAILY [facility] Last Admin: 08/01/25 08:24 Dose: 180 mg Home Medications ?Medication ?Instructions ?Recorded ?Confirmed ?Last Taken ?Type calcium 600 mg (as 1 cap PO DAILY 08/06/20 07/31/25 07/30/25 History carbonate)-vitamin D3 5 mcg (200 unit) capsule (Calcium 600 + D(3)) vitamin E (dl, acetate) 180 mg 400 unit PO DAILY 08/06/20 07/31/25 07/30/25 History (400 unit) capsule bumetanide 1 mg tablet 1 mg PO DAILY@1200 07/31/25 07/31/25 07/30/25 History bumetanide 1 mg tablet 2 mg PO DAILY 07/31/25 07/31/25 07/31/25 History levothyroxine 88 mcg tablet 88 mcg PO DAILY@0607/31/25 07/31/25 07/31/25 History Physical Exam Vital Signs: Vital Signs: Last Vital Signs Temp 97.6 F 08/01/25 15:56 Pulse 67 08/01/25 15:56 Resp 18 08/01/25 15:56 BP 113/55 L 08/01/25 15:56 Pulse Ox 100 08/01/25 15:56 O2 Del Method Room Air 08/01/25 15:56 BMI result Body Mass Index 17.9 Const: General: cooperative, healthy appearing and comfortable Orientation/consciousness: oriented to person, oriented to place and oriented to time HEENT: Head: Yes normal to inspection Neck: Neck: Yes normal visual inspection Carotids: no bruits Chest: Chest palpation & inspection: normal inspection of the chest Resp: Effort & Inspection: normal respiratory effort and able to speak in complete sentences Auscultation: clear to auscultation bilaterally, no crackles, no rales, no rhonchi and no wheezes Cardio: Other: Bilateral DP signals Rate: regular rate Rhythm: regular rhythm Heart sounds: S1 normal heart sound present and S2 normal heart sound present Bruits: no carotid bruits GI: Inspection: Yes normal to inspection Skin: Other: Gangrenous toes 1 through 5 on the right lower extremity. Macerated Wounds: no wounds Hair: normal Neuro: General: oriented to person, oriented to place and oriented to time Cranial nerves: Yes CN's II-XII intact bilaterally and Yes Normal hearing present Cognition (Neuro): normal cognition Motor exam (neuro): 5/5 motor strength present throughout Extrem: Other: venous exam: No significant superficial varicosities or spider telangiectasias, minimal edema General: No clubbing, No cyanosis and No edema Psych: Appearance: grossly normal Mental Status: mental status grossly normal Speech and movement: Normal speech and movement present Results Labs 08/01/25 05:37 08/01/25 05:37 Labs: Abnormal lab results 08/01/25 Range/Units 05:37 RBC 3.25 L (4.20-5.50) X10*6/uL Hgb 7.6 L (12.0-16.0) g/dl Hct 25.2 L (37.0-47.0) % MCV 77.5 L (80.0-98.0) fL MCH 23.4 L (27.0-33.0) pg MCHC 30.2 L (31.0-35.0) g/dl RDW 19.4 H (11.0-16.0) % Neut % (Auto) 79.0 H (45-73) % Lymph % (Auto) 9.1 L (20-40) % Lymph # (Auto) 0.6 L (1.2-4.9) X10*3/uL Chloride 109 H (96-108) mmol/L Carbon Dioxide 21 L (22-29) mmol/L BUN 65 H (9-16) mg/dL Creatinine 1.51 H (0.5-1.4) mg/dL Calcium 8.3 L D (8.4-10.2) mg/dL Short CBC 08/01/25 Range/Units 05:37 WBC 6.4 (4.8-10.8) X10*3/uL Hgb 7.6 L (12.0-16.0) g/dl Hct 25.2 L (37.0-47.0) % Plt Count 249 (160-400) X10*3/uL BMP 07/31/25 08/01/25 20:49 05:37 Sodium 142 Potassium 3.7 D 3.8 Chloride 109 H Carbon Dioxide 21 L BUN 65 H Creatinine 1.51 H Calcium 8.3 L D Urine 07/31/25 Range/Units 11:49 Urine Color Yellow Urine Appearance Cloudy Urine pH 6.0 (5.0-9.0) Ur Specific [place] 1.010 (1.005-1.025) Urine Protein Trace (Neg-Trace) mg/dL Urine Glucose (UA) Negative (Negative) mg/dL All other labs normal. Assessment and Plan (1) PAD (peripheral artery disease): Status: Acute Plan In short patient has nonhealing ulcers of the right lower extremity. Concern here is her arterial status. I have taken the liberty of ordering noninvasive testing. In addition the bigger concern is what the patient's overall plan is. Upon discussion with her she did not want any surgery. I did discuss with her that this is limb and life threatening and she would consider it if absolutely needed. I said we will readdress this once we obtain noninvasive testing. In addition she has had a discussion with the hospitalist team regarding hospice. We will closely follow her with you. Thank you for allowing us to participate in her care. Procedures Date of Service Date of Service: 08/01/25
[2025-08-01 20:00] VITALS: BP 115/63; PULSE 88; RESP 16; TEMP 36.2; O2SAT 95
[2025-08-02 02:56] VITALS: BP 130/66; PULSE 95; RESP 20; TEMP 36.2; O2SAT 99
[2025-08-02 06:50] LABS: Hematocrit 27.8 % (37.0-47.0); Hemoglobin 7.6 g/dl (12.0-16.0); Mean Corpuscular HGB Conc 27.3 g/dl (31.0-35.0); Mean Corpuscular Hemoglobin 22.8 pg (27.0-33.0); Mean Corpuscular Volume 83.5 fL (80.0-98.0); NRBC Abs Auto 0.000 X10*3/uL (0.0-0.012); NRBC Pct Auto 0.0 /100WBC (0.0-0.2); Platelet Count 251 X10*3/uL (160-400); Red Blood Count 3.33 X10*6/uL (4.20-5.50); White Blood Count 6.3 X10*3/uL (4.8-10.8)
[2025-08-02 06:52] LABS: Anion Gap 14 (12-20); Blood Urea Nitrogen 48 mg/dL (9-16); Calcium 8.6 mg/dL (8.4-10.2); Carbon Dioxide 21 mmol/L (22-29); Chloride 110 mmol/L (96-108); Creatinine Clr Calc Pharmacy 21.6; Estimated Glomerular Filt Rate 36; Potassium 4.2 mmol/L (3.3-5.1); Sodium 141 mmol/L (135-145)
[2025-08-02 07:19] VITALS: BP 111/59; PULSE 96; RESP 16; TEMP 36.7; O2SAT 98
[2025-08-02] MEDS: Vitamin E (Dl,Tocopheryl Acet) 180 MG (400 UNIT) CAPSULE PO (07:36)
[2025-08-02] MEDS: Ferrous Sulfate 324 MG TABLET.DR PO (07:36)
[2025-08-02] MEDS: Calcium + Vitamin D 250 MG TABLET 500 MG PO (07:37)
[2025-08-02] MEDS: 0.9 % Sodium Chloride Flush 3 ML SYRINGE IVFLUSH (07:38)
[2025-08-02] MEDS: Metoprolol Succinate ER 50 MG TAB.ER.24H PO (07:54)
[2025-08-02 10:03] VITALS: BMI 18.5
--- NOTE | 2025-08-02 11:09 | MHC.CM.PN ---
DP: PT HAS BEEN MEDICALLY CLEARED TO DC HOME WITH HOSPICE CARE VIA [facility]. HLC UPDATED AND MED RECOMMENDATIONS SENT TO . RN NOTIFIED. PT'S NIECE AT BEDSIDE AND SON TAYLOR AWARE OF DC AND TIME. BLS TRANSPORT BOOKED FOR 12 N [facility].
[2025-08-02 11:10] VITALS: BMI 18.5
--- NOTE | 2025-08-02 11:10 | PM.DS ---
DS: Providers Provider Date of Service: 08/02/25 Date of admission: 07/31/25 13:37 Date of discharge: 08/02/25 Primary care physician: Tk Nelson MD Consults: 07/31/25 14:15 Consult to General Surgery Routine Consulting Provider: [facility] General Surgeons Reason for consultation: left toes necrosis Has provider been notified: No 07/31/25 14:47 Consult to Gastroenterology Routine Consulting Provider: Guy Ley Reason for consultation: Anemia Has provider been notified: No 07/31/25 15:26 Consult to Vascular Surgery Routine Consulting Provider: [facility] Vascular Services Reason for consultation: Right toes necrosis; left 3rd toe necrosis 07/31/25 15:53 Consult to Wound Care Routine Reason for consultation: stage II coccyx, stage I bilateral buttocks, right toes - nectrotic DS: Diagnosis Discharge Diagnosis (1) Cellulitis of right foot: Status: Acute (2) Skin necrosis: Status: Acute DS: Summary Hospital Course Hospital Course: from initial hpi: 89 years old woman with past medical history significant for the PAD, essential hypertension, hyperlipidemia, HFpEF, coronary artery disease, severe aortic stenosis and hypothyroidism presents to the emergency department complaining of right foot pain associated with swelling, redness in darkness to toes and redness over the last month. About 6 months ago she was seen at urgent care for similar symptoms and was treated with antibiotics which she took for 7 days without significant improvement. She denied fever. She denied any acute cardiopulmonary, gastrointestinal or genitourinary symptoms. In the ED, she was found to have normal vital signs. Blood workup showed no leukocytosis. Hemoglobin 7.8 and platelets are normal. Venous blood gas showed pH of 7.39 a pCO2 of 39. HC03 is 24. Blood workup was remarkable for hypokalemia of 2.8. There are no other electrolyte imbalances. BUN is 86 and creatinine 1.69. Glucose is 106. Urinalysis showed trace blood, leukocyte esterase 2+, WBC > 50 and RBC 0-2. ECG showed left ventricle hypertrophy with QRS without tachycardia. Left foot x-ray showed soft tissue swelling dorsum of the forefoot without radiographic evidence of osteomyelitis or bone abnormality. ED tx: Ceftriaxone 1 g IV, vancomycin 1250 mg hospital course: Patient was admitted for right lower extremity acute limb ischemia with necrosis and cellulitis of multiple toes due to severe bilateral peripheral vascular disease. Was treated with vancomycin Zosyn. Was seen by vascular surgery and General surgery. Decision was made not to pursue further aggressive management. Hospice was consulted and patient will be set up with home hospice. As long as benefitting symptomatically can continue on suppressive doxycycline and antiplatelet to avoid progression. Was also noted to have chronic iron-deficiency anemia but GI workup is deferred due to medical conditions. For hypokalemia received replacement. For hypertension losartan was held due to acute kidney injury. For hypothyroid who was continued on levothyroxine. For hyperlipidemia continued on statin. For severe aortic stenosis is not interested in surgery. For coronary artery disease status post CABG was continued on aspirin. For stage II pressure injury to the coccyx local care recommended. Patient will be discharged home on hospice. Time Attestation Discharge Coordination Time (in mins): 33 Quality: Safe Use of Opioids Does Pt have an Active Cancer Diagnosis on the Problem List?: No Quality: Stroke Does the patient have a stroke diagnosis?: No Physical Exam Vital Signs: Vital Signs: Last Vital Signs Temp 98.0 F 08/02/25 07:19 Pulse 96 08/02/25 07:19 Resp 16 08/02/25 07:19 BP 111/59 L 08/02/25 07:19 Pulse Ox 98 08/02/25 07:19 O2 Del Method Room Air 08/02/25 07:19 BMI result Body Mass Index 18.5 Const: General: cooperative, healthy appearing and comfortable Orientation/consciousness: oriented to person, oriented to place and oriented to time HEENT: Head: Yes normal to inspection Neck: Neck: Yes normal visual inspection Carotids: no bruits Chest: Chest palpation & inspection: normal inspection of the chest Resp: Effort & Inspection: normal respiratory effort and able to speak in complete sentences Auscultation: clear to auscultation bilaterally, no crackles, no rales, no rhonchi and no wheezes Cardio: Other: Bilateral DP signals Rate: regular rate Rhythm: regular rhythm Heart sounds: S1 normal heart sound present and S2 normal heart sound present Bruits: no carotid bruits GI: Inspection: Yes normal to inspection Skin: Other: Gangrenous toes 1 through 5 on the right lower extremity. Macerated Wounds: no wounds Hair: normal Neuro: General: oriented to person, oriented to place and oriented to time Cranial nerves: Yes CN's II-XII intact bilaterally and Yes Normal hearing present Cognition (Neuro): normal cognition Motor exam (neuro): 5/5 motor strength present throughout Extrem: Other: venous exam: No significant superficial varicosities or spider telangiectasias, minimal edema General: No clubbing, No cyanosis and No edema Psych: Appearance: grossly normal Mental Status: mental status grossly normal Speech and movement: Normal speech and movement present DS: Data Data Completed and Pending Labs on day of discharge: Laboratory Results - last 24 hr 08/01/25 08/02/25 08/02/25 14:25 05:51 05:52 WBC 6.3 RBC 3.33 L Hgb 7.6 L Hct 27.8 L MCV 83.5 D MCH 22.8 L MCHC 27.3 L RDW 19.5 H Plt Count 251 MPV 10.5 Absolute Nucleated RBC 0.000 Nucleated RBC % (auto) 0.0 Sodium 141 Potassium 4.2 Chloride 110 H Carbon Dioxide 21 L Anion Gap 14 BUN 48 H Creatinine 1.37 Estim Creat Clear Calc 21.6 Estimated GFR 36 Random Glucose 101 Calcium 8.6 Stool Occult Blood NEGATIVE Random Vancomycin 08/02/25 10:17 WBC RBC Hgb Hct MCV MCH MCHC RDW Plt Count MPV Absolute Nucleated RBC Nucleated RBC % (auto) Sodium Potassium Chloride Carbon Dioxide Anion Gap BUN Creatinine Estim Creat Clear Calc Estimated GFR Random Glucose Calcium Stool Occult Blood Random Vancomycin 13.0 L Preliminary micro results at discharge 07/31/25 10:43 Blood Culture - Preliminary Blood - Venous No growth after 24 hours. 07/31/25 10:43 Blood Culture - Preliminary Blood - Venous No growth after 24 hours. Discharge Plan Discharge Anticipated Discharge Date/Time: 08/02/25 11:06 Patient Disposition: Hospice - Home Discharge Diagnosis: ischemic limb Referrals: Ildef[facility]AL[facility]AN [Outside] - 1 Week Referral Note: HOSPICE CARE AT HOME Tk Nelson MD [Primary Care Provider, Internal Medicine] - 1 Week Discharge Medications: New morphine concentrate 100 mg/5 mL (20 mg/mL) solution 5 mg PO Q3H PRN (Reason: pain/comfort) 15 Days Qty: 30 0RF Rx Instructions: Partial Fill upon patient request. lorazepam 0.5 mg tablet 0.5 mg PO Q6H PRN (Reason: anxiety/restlessness) 4 Days Qty: 16 0RF lorazepam [Lorazepam Intensol] 2 mg/mL concentrate 0.5 mg PO Q4H PRN (Reason: anxiety/restlessness) Qty: 30 0RF haloperidol lactate 2 mg/mL Concentrate 1 mg PO Q6H PRN (Reason: Agitation/restlessness) 7 Days Qty: 15 1RF doxycycline hyclate 100 mg tablet 100 mg PO BID Qty: 20 0RF Continued albuterol sulfate 90 mcg/actuation HFA aerosol inhaler 2 puff PO Q4H PRN (Reason: bronchospasm) Qty: 8.5 7RF pantoprazole 40 mg tablet,delayed release (DR/EC) 40 mg PO DAILY Qty: 90 0RF bumetanide 1 mg tablet 1 mg PO DAILY@1200 bumetanide 1 mg tablet 2 mg PO DAILY Rx Instructions: 2 tabs in am, 1 tab at noon orally; Calcium 600 + D(3) 600 mg calcium- 200 unit capsule 1 cap PO DAILY aspirin [Ecotrin Low Strength] 81 mg tablet,delayed release (DR/EC) 81 mg PO DAILY Qty: 30 0RF tramadol 50 mg tablet 50 mg PO BEDTIME PRN (Reason: severe pain) 30 Days Qty: 30 0RF Discontinued atorvastatin 20 mg tablet 20 mg PO DAILY Qty: 90 3RF metoprolol succinate 50 mg tablet extended release 24 hr 50 mg PO DAILY Qty: 90 3RF losartan 50 mg tablet 50 mg PO DAILY Qty: 90 0RF levothyroxine 88 mcg tablet 88 mcg PO DAILY@0600 vitamin E (dl, acetate) 400 unit capsule 400 unit PO DAILY Discharge Orders: Discharge Order (Routine); Ordered 08/02/25 Ordered By: Jerardo Polanco Diet: Advance to usual diet Activity on Discharge: As tolerated Stand Alone Forms: Patient Portal Discharge page Print Language: Swedish Care Plan Goals: Comfort Health Concerns: Ischemic limb Plan of Treatment: Can continue antiplatelet and doxycycline as long as benefitting symptomatically. Hospice care Assessment: See above Patient Instructions: Doxycycline (By mouth)
--- NOTE | 2025-08-02 11:18 | MHC.CLN ---
NUTRITION DIET RX CARDIAC. RECEIVING ENSURE BID TO PROMOTE SKIN INTEGRITY AND INCREASE NUTRITIONAL INTAKE. SUPPLEMENT PROVIDES 700 KCALS, 40 G PROTEIN. NO NOTED CONCERNS WITH PO INTAKE. REVIEW OF WEIGHT HX SHOWS WEIGHT ESSENTIALLY STABLE X ONE YEAR. CONTINUE CARDIAC DIET WITH ENSURE BID.
--- NOTE | 2025-08-02 11:25 | PC.NURSE ---
With the permission of Lucio Quezada Freda was given 3 paper scripts for hospice medication, two Ativan scripts and one Morphine script. Per Pt, Freda will tack picker her medications upon DC home.
[2025-08-02 11:48] VITALS: BP 114/55; RESP 16; TEMP 36.4
--- NOTE | 2025-08-02 11:51 | HO.VASCPN ---
Subjective Subjective Date of Service: 08/02/25 Patient reports: no new complaints and feels better Interval history: Patient seen and examined. Family member at bedside. Patient with significant atherosclerotic disease and nonhealing ulcer of the right foot. Currently stable denies any significant pain now for vascular follow-up. Physical Exam Vital Signs: Vital Signs: Last Vital Signs Temp 98.0 F 08/02/25 07:19 Pulse 96 08/02/25 07:19 Resp 16 08/02/25 07:19 BP 111/59 L 08/02/25 07:19 Pulse Ox 98 08/02/25 07:19 O2 Del Method Room Air 08/02/25 07:19 BMI result Body Mass Index 18.5 Const: General: cooperative, healthy appearing and comfortable Orientation/consciousness: oriented to person, oriented to place and oriented to time HEENT: Head: Yes normal to inspection Neck: Neck: Yes normal visual inspection Carotids: no bruits Chest: Chest palpation & inspection: normal inspection of the chest Resp: Effort & Inspection: normal respiratory effort and able to speak in complete sentences Auscultation: clear to auscultation bilaterally, no crackles, no rales, no rhonchi and no wheezes Cardio: Other: Bilateral DP signals Rate: regular rate Rhythm: regular rhythm Heart sounds: S1 normal heart sound present and S2 normal heart sound present Bruits: no carotid bruits GI: Inspection: Yes normal to inspection Skin: Other: Gangrenous toe Wounds: no wounds Hair: normal Neuro: General: oriented to person, oriented to place and oriented to time Cranial nerves: Yes CN's II-XII intact bilaterally and Yes Normal hearing present Cognition (Neuro): normal cognition Motor exam (neuro): 5/5 motor strength present throughout Extrem: Other: venous exam: No significant superficial varicosities or spider telangiectasias, minimal edema General: No clubbing, No cyanosis and No edema Psych: Appearance: grossly normal Mental Status: mental status grossly normal Speech and movement: Normal speech and movement present Progress Note: A&P Assessment and plan (1) PAD (peripheral artery disease): Status: Acute Assessment and Plan: In short patient has severe peripheral vascular disease. Clear on ultrasound that she has an SFA occlusion this is leading to her lower extremity critical limb ischemia with nonhealing ulcers. The overall plan would be for endovascular intervention in the hopes of salvaging a trans met amputation may even end up with a BKA. I did have a very mellissa discussion with her about this and she was adamant that she would not want any further surgical procedures. She has discussed with the hospitalist team about hospice and is intending to move forward with hospice planning. I did inform her of the risks of not proceeding forward including limb loss sepsis and . She did demonstrate a clear understanding of this. I wish her the best of luck and should our services be required happy to follow up. Thank you for allowing us to assist in her care. Time Spent With Patient Time: Total time managing care of this patient today ____ minutes. Procedures Date of Service Date of Service: 08/02/25 Quality Stroke Does the patient have a stroke diagnosis?: No VTE Prior VTE?: No VTE Risk Level:: Medical - moderate - high VTE Device Contraindication: Treatment Not Indicated VTE Drug Contraindication: N/A - Med Ordered
== END 2025-08-02 12:03 | disposition hospice, home (50) | DRG 300 ==
LOC: HO.ED 13:25 → HO.EDOVER 13:45 → HO.S3 14:48
PROVIDERS: Physician Assistant Medical; Admitting Provider Internal Medicine; Emergency Provider Emergency Medicine; PCP Internal Medicine; Visit Provider Internal Medicine
DX: I70.263 Atherosclerosis of native arteries of extremities with gangrene, bilateral legs (principal); L03.115 Cellulitis of right lower limb; N39.0 Urinary tract infection, site not specified; N17.9 Acute kidney failure, unspecified; L97.529 Non-pressure chronic ulcer of other part of left foot with unspecified severity; E87.6 Hypokalemia; L97.519 Non-pressure chronic ulcer of other part of right foot with unspecified severity; T50.1X5A Adverse effect of loop [high-ceiling] diuretics, initial encounter; T46.5X5A Adverse effect of other antihypertensive drugs, initial encounter; E78.5 Hyperlipidemia, unspecified; J45.20 Mild intermittent asthma, uncomplicated; Z51.5 Encounter for palliative care; E03.9 Hypothyroidism, unspecified; L89.152 Pressure ulcer of sacral region, stage 2; D50.9 Iron deficiency anemia, unspecified; I25.10 Atherosclerotic heart disease of native coronary artery without angina pectoris; I35.0 Nonrheumatic aortic (valve) stenosis; Z95.1 Presence of aortocoronary bypass graft; Z96.651 Presence of right artificial knee joint; Z79.82 Long term (current) use of aspirin; Z79.899 Other long term (current) drug therapy
CPT/HCPCS: 36415; 73630; 73720; 80048; 80053; 80202; 81001; 81003; 82272; 82607; 82728; 82746; 82803; 83540; 83605; 83735; 84132; 84484; 85025; 85027; 85045; 85652; 86140; 87040; 87086; 93005; 93922; 93925; 99285; J0696; J1644; J2470; J2543; J3374; J3480; J7120

== ENCOUNTER → 2025-07-31 10:26 | Outpatient (BNV) | payer MEDICARE, SELFPAY | PROVIDERS: Admitting Provider Internal Medicine; Emergency Provider Emergency Medicine; PCP Internal Medicine; Visit Provider Internal Medicine Cardiovascular Disease | DX: I51.7 Cardiomegaly (principal) | CPT/HCPCS: 93010 ==

== ENCOUNTER → 2025-07-31 10:51 | Outpatient (BNV) | payer MEDICARE, SELFPAY | PROVIDERS: PCP Internal Medicine; Visit Provider Radiology Diagnostic Radiology | DX: M85.871 Other specified disorders of bone density and structure, right ankle and foot (principal); M85.872 Other specified disorders of bone density and structure, left ankle and foot | CPT/HCPCS: 73630 ==

== ENCOUNTER 2025-07-31 13:37 | Outpatient (BNV) | payer MEDICARE, SELFPAY | END 2025-08-01 08:00 | PROVIDERS: Admitting Provider Internal Medicine; Emergency Provider Emergency Medicine; PCP Internal Medicine; Visit Provider Internal Medicine Cardiovascular Disease | DX: I49.3 Ventricular premature depolarization (principal); I45.4 Nonspecific intraventricular block | CPT/HCPCS: 93010 ==

== ENCOUNTER 2025-07-31 13:37 | Outpatient (BNV) | payer MEDICARE, SELFPAY | END 2025-08-01 10:05 | PROVIDERS: Admitting Provider Internal Medicine; Emergency Provider Emergency Medicine; PCP Internal Medicine; Visit Provider Radiology Diagnostic Radiology | DX: I70.223 Atherosclerosis of native arteries of extremities with rest pain, bilateral legs (principal) | CPT/HCPCS: 93922; 93925 ==

== ENCOUNTER → 2025-07-31 13:37 | Outpatient (BNV) | payer MEDICARE, SELFPAY | PROVIDERS: Admitting Provider Internal Medicine; Emergency Provider Emergency Medicine; PCP Internal Medicine | DX: L03.115 Cellulitis of right lower limb (principal); I96 Gangrene, not elsewhere classified; R60.0 Localized edema | CPT/HCPCS: 99222; 99232 ==

== ENCOUNTER → 2025-07-31 13:37 | Outpatient (BNV) | payer MEDICARE, SELFPAY | PROVIDERS: Admitting Provider Internal Medicine; Emergency Provider Emergency Medicine; PCP Internal Medicine; Visit Provider Surgery Vascular Surgery | DX: I73.9 Peripheral vascular disease, unspecified (principal) | CPT/HCPCS: 99222 ==

== ENCOUNTER → 2025-07-31 13:37 | Outpatient (BNV) | payer MEDICARE, SELFPAY | PROVIDERS: Admitting Provider Internal Medicine; Emergency Provider Emergency Medicine; PCP Internal Medicine; Visit Provider Internal Medicine | DX: L03.115 Cellulitis of right lower limb (principal); N39.0 Urinary tract infection, site not specified; E87.6 Hypokalemia; N17.9 Acute kidney failure, unspecified | CPT/HCPCS: 99223; 99233 ==